=== PATIENT | male | born 1930 | race Hispanic/Latino ===

== ENCOUNTER 2016-10-31 21:14 | Inpatient (IN) | payer MEDICARE ==
[2016-10-31 21:24] VITALS: BMI 30.4
[2016-10-31] MEDS ORDERED: Sodium Chloride 0.9% 1,000 ML IV ONE (21:59)
[2016-10-31] MEDS ORDERED: Iohexol 240 (50 ml) PO ONE (21:59)
--- NOTE | 2016-10-31 22:03 | C.PDOC ---
History Of Present Illness Patient gave ahistory of feeling lightheaded and dizzy tonite with low blood pressure.History of loose bowel movemwnt since yesterday but with rectal bleedin today.Dnies any vomiting or abdominal pain. Chief Complaint (Nursing): Dizziness/Lightheaded History Per: Patient, Family History/Exam Limitations: no limitations Onset/Duration Of Symptoms: Days Current Symptoms Are (Timing): Still Present Activity At Onset Of Symptoms: Exertional Activity Associated Symptoms Preceding Syncopal Episode: Lightheadedness Seizure Or Post-ictal Symptoms: None Possible Causative Factor(s): Other (loose bowel movement) Fall Associated With With Symptoms: No Severity: Moderate Pain Scale Rating Of: 0 Recent travel outside of the [place]: No Additional History Per: Patient Past Medical History Vital Signs: Last Vital Signs Temp 97.7 F 10/31/16 21:32 Pulse 77 10/31/16 23:14 Resp 16 10/31/16 23:14 BP 130/56 L 10/31/16 23:14 Pulse Ox 100 11/01/16 00:17 - Medical History PMH: CAD, HTN, TIA, Chronic Pain (back pain due to osteoarhtritis and herniated disc) Denies: Chronic Kidney Disease Surgical History: CABG Family History: States: Unknown Family Hx - Social History Hx Tobacco Use: No Hx Alcohol Use: No Hx Substance Use: No - Immunization History Hx Tetanus Toxoid Vaccination: No Hx Influenza Vaccination: No Hx Pneumococcal Vaccination: No Review Of Systems Constitutional: Negative for: Fever, Chills Cardiovascular: Positive for: Edema, Light Headedness. Negative for: Chest Pain , Palpitations, Orthopnea Respiratory: Negative for: Cough, Shortness of Breath, Hemoptysis Gastrointestinal: Positive for: Diarrhea, Hematochezia. Negative for: Nausea, Vomiting, Abdominal Pain Genitourinary: Negative for: Dysuria Musculoskeletal: Negative for: Neck Pain, Shoulder Pain, Arm Pain Skin: Negative for: Rash, Lesions Neurological: Positive for: Weakness, Dizziness Psych: Negative for: Anxiety, Depression, Psychosis, Suicidal ideation, Withdrawal Physical Exam - Physical Exam Appears: Well, Non-toxic, No Acute Distress Skin: Normal Color Head: Atraumatic Nose: Normal Throat: Normal Neck: Normal Chest: Symmetrical, No Deformity, No Tenderness Cardiovascular: Rhythm Regular Respiratory: Normal Breath Sounds Gastrointestinal/Abdominal: Bowel Sounds (hyperactive), Tenderness (minimal tenderness), No Organomegaly, No Mass, No Distention, No Guarding Rectal: Rectal Tone, Blood Streaked Stool, No Hemorrhoids, No Mass, No Tenderness ED Course And Treatment - Laboratory Results Result Diagrams: 10/31/16 22:17 10/31/16 22:17 ECG: Interpreted By Me, Viewed By Me ECG Rhythm: Junctional Rhythm (accelerated junctional rhythm) ECG Interpretation: Abnormal Interpretation Of ECG: accelerated junctional rhythm, no acute ST-T changes Rate From EC O2 Sat by Pulse Oximetry: 100 Pulse Ox Interpretation: Normal - Radiology CXR: Interpreted by Me, Viewed By Me CXR Interpretation: Yes: No Acute Disease. No: Infiltrates, Cardiomegaly Disposition Discussed With Dr.: Joaquín Stanley Doctor Will See Patient In The: Hospital Counseled Patient/Family Regarding: Diagnosis - Disposition Referrals: hTomas Phan MD [Staff Provider] - Disposition: HOSPITALIZED Disposition Time: 00:16 Condition: STABLE - POA Present On Arrival: None - Clinical Impression Clinical Impression: Dizziness, Hypotension, Rectal bleeding, Junctional cardiac arrhythmia
[2016-10-31 22:26] LABS: BASO # 0.1 K/uL (0.0-0.2); BASO % 0.8 % (0.0-2.0); EOS # 0.3 K/uL (0.0-0.7); EOS % 2.2 % (0.0-4.0); HEMATOCRIT 38.6 % (35.0-51.0); LYMPH # 2.5 K/uL (1.0-4.3); LYMPH % 21.1 % (20.0-40.0); MEAN CORPUSCULAR HEMOGLOBIN 29.6 pg (27.0-31.0); MEAN CORPUSCULAR HGB CONC 33.2 g/dL (33.0-37.0); MEAN PLATELET VOLUME 9.6 fL (7.2-11.7); MONO % 8.6 % (0.0-10.0); RED CELL DISTRIBUTION WIDTH 13.3 % (11.5-14.5); WHITE BLOOD COUNT 12.1 K/uL (4.8-10.8)
[2016-10-31 22:39] LABS: ALB/GLOB RATIO 1.2 (1.0-2.1); BILIRUBIN,TOTAL 0.9 mg/dL (0.2-1.3); TOTAL PROTEIN 6.1 g/dL (6.3-8.3)
[2016-10-31] MEDS ORDERED: Iohexol 240 (50 ml) ONE (22:40)
[2016-10-31 22:43] LABS: INR 1.2
[2016-10-31 23:14] LABS: CALCIUM 8.4 mg/dl (8.6-10.4)
--- NOTE | 2016-11-01 01:29 | CT ---
EXAM: CT Abdomen and Pelvis With Intravenous Contrast. CLINICAL HISTORY: 86 years old, male; Pain; Abdominal pain; Additional info: Abd pain , low BP, rectal bleed TECHNIQUE: Axial computed tomography images of the abdomen and pelvis with intravenous contrast. This CT exam was performed using one or more of the following dose reduction techniques: automated exposure control, adjustment of the mA and/or kV according to patient size, and/or use of iterative reconstruction technique. Coronal and sagittal reformatted images were created and reviewed. CONTRAST: 240 mL of oral administered intravenously. COMPARISON: No relevant prior studies available. FINDINGS: Limitations: Motion artifact - mild. Lower thorax: Coronary artery calcifications. Moderate-sized hiatal hernia. ABDOMEN: Liver: Unremarkable. No mass. Gallbladder and bile ducts: Cholecystectomy. Mild prominence of common bile duct. Pancreas: No ductal dilation. No mass. Spleen: No splenomegaly. Adrenals: No mass. Kidneys and ureters: Minimal stranding about kidneys, nonspecific. Few small renal calculi. Too small to characterize lesion within RIGHT kidney. No hydronephrosis. Stomach and bowel: Few scattered diverticula within colon. No definite associated inflammatory stranding. No definite mural thickening. No obstruction. Appendix: Normal caliber. No inflammation. PELVIS: Bladder: Unremarkable. Reproductive: Enlarged prostate gland. Small hydroceles. ABDOMEN and PELVIS: Intraperitoneal space: No significant fluid collection. No free air. Bones/joints: Median sternotomy. Degenerative changes of hips and spine. No acute fracture. Soft tissues: Unremarkable. Vasculature: Moderate to extensive atherosclerotic disease of visualized arteries. No aortic aneurysm. Lymph nodes: No pathologically enlarged lymph nodes. IMPRESSION: 1. Diverticulosis without definite CT evidence of diverticulitis. 2. Incidental/non-acute findings are described above.
--- NOTE | 2016-11-01 02:25 | CP.PCM.HP ---
<Sissy Barone - Last Filed: 11/01/16 02:11> History of Present Illness - History of Present Illness History of Present Illness: CC: "dizziness, diarrhea, low blood pressure" HPI: Pt is an 86M with medical history of CAD s/p CABG in 1992, hypertension, COPD, venous insufficiency and diverticulosis who presents the emergency department complaining of dizziness and low blood pressure x 2 days. Patient states he became dizzy and lost his balance after walking to the kitchen, which prompted him to take his blood pressure which indicated hypotension. He also experienced a recent fall in August and recalls similar symptoms. Patient notes 4 episodes of diarrhea on 10/30/16 and 2 episodes on 10/30/16. He states he is typically constipated and admits to straining frequently but will experience diarrhea every month. Patient also admits to bright red blood per rectum noted in the toilet, on the toilet paper and toilet seat x 2 days. He states this is the first he experienced rectal bleeding. Patient remarks he was diagnosed with gastritis/diverticulosis 7-8 years ago. 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 He denies chest pain, shortness of breath, abdominal pain, nausea, vomiting but admits to lower extremity edema. PMD: none PMH: CAD s/p CABG in 1992, hypertension, COPD, venous insufficiency, diverticulosis, fractured vertebrae, multiple facial fractures, Yancey's Palsy Allergies: ciprofloxacin, streptomycin Surgeries: cholecystectomy, metal plate jaw reconstruction Family History: not pertinent Social: smokes 1/2 ppd for 62 years. Denies alcohol and illicit drug use. Present on Admission - Present on Admission Any Indicators Present on Admission: No History of DVT/PE: No Urinary Catheter: No Decubitus Ulcer Present: No Review of Systems - Constitutional Constitutional: absent: Chills, Fever, Headache, Weakness - EENT Eyes: absent: Change in Vision Ears: Dizziness. absent: Tinnitus Nose/Mouth/Throat: absent: Nasal Discharge - Cardiovascular Cardiovascular: absent: Chest Pain, Dyspnea - Respiratory Respiratory: absent: Dyspnea, Dyspnea on Exertion - Gastrointestinal Gastrointestinal: Constipation, Diarrhea, Heartburn, Hematochezia. absent: Abdominal Pain, Melena, Nausea, Vomiting - Genitourinary Genitourinary: Urinary Frequency, Urinary Urgency - Musculoskeletal Musculoskeletal: Back Pain - Integumentary Integumentary: absent: Changing Lesions, New Lesions - Neurological Neurological: Dizziness, Other Additional comments: lightheadedness Past Patient History - Past Medical History & Family History Past Medical History?: Yes - Past Social History Smoking Status: Current Some Days Smoker - CARDIAC Hx Hypertension: Yes - NEUROLOGICAL Hx Transient Ischemic Attacks (TIA): Yes - HEENT Other/Comment: left eye red and watery - RENAL Hx Chronic Kidney Disease: No - ENDOCRINE/METABOLIC Hx Endocrine Disorders: No - HEMATOLOGICAL/ONCOLOGICAL Hx Blood Disorders: No - INTEGUMENTARY Hx Dermatological Problems: No - MUSCULOSKELETAL/RHEUMATOLOGICAL Hx Falls: Yes Hx Herniated Disk: Yes - GASTROINTESTINAL Hx Gastrointestinal Disorders: No - GENITOURINARY/GYNECOLOGICAL Hx Genitourinary Disorders: No - PSYCHIATRIC Hx Substance Use: No - SURGICAL HISTORY Hx Coronary Artery Bypass Graft: Yes - ANESTHESIA Hx Anesthesia: Yes Hx Anesthesia Reactions: No Hx Malignant Hyperthermia: No Meds Allergies/Adverse Reactions: Allergies Allergy/AdvReac Type Severity Reaction Status Date / Time ciprofloxacin [From Cipro] Allergy Mild Verified 10/31/16 21:36 ciprofloxacin HCl Allergy Mild Verified 10/31/16 21:36 [From Cipro] streptomycin Allergy Mild Verified 10/31/16 21:36 Physical Exam - Constitutional Appears: Non-toxic, No Acute Distress - Head Exam Head Exam: ATRAUMATIC, NORMAL INSPECTION, NORMOCEPHALIC - Eye Exam Eye Exam: EOMI, Normal appearance, PERRL - ENT Exam ENT Exam: Mucous Membranes Moist - Neck Exam Neck exam: Positive for: Normal Inspection, Tenderness - Respiratory Exam Respiratory Exam: Clear to Auscultation Bilateral, NORMAL BREATHING PATTERN. absent: Rales, Rhonchi, Wheezes - Cardiovascular Exam Cardiovascular Exam: +S1, +S2. absent: Tachycardia - GI/Abdominal Exam GI & Abdominal Exam: Distended, Hyperactive Bowel Sounds, Soft - Rectal Exam Rectal Exam: Bloody Stool. absent: Hemorrhoids - Extremities Exam Extremities exam: Positive for: pedal edema, tenderness, pedal pulses present - Back Exam Back exam: NORMAL INSPECTION, tenderness - Neurological Exam Neurological exam: Alert, Oriented x3 - Psychiatric Exam Psychiatric exam: Normal Affect, Normal Mood - Skin Skin Exam: Intact, Normal Color Results - Vital Signs Recent Vital Signs: Last Vital Signs Temp 97.7 F 10/31/16 21:32 Pulse 80 11/01/16 00:40 Resp 15 11/01/16 00:40 BP 125/62 11/01/16 00:40 Pulse Ox 98 11/01/16 00:40 - Labs Result Diagrams: 10/31/16 22:17 10/31/16 22:17 Assessment & Plan - Assessment and Plan (Free Text) Assessment: 1. Symptomatic Hypotension likely secondary to diarrhea EKG: accelerated junctional rhythm; no acute ST-T changes f/u Echo Echo (10/07/14): left ventricle mildly dilated, LV systolic function normal, normal LV segmental wall motion, increased left atrial pressure, left atrium mild-moderately dilated, RV systolic function normal, calcified aortic valve Continue Normal Saline IV @100cc Orthostatic vital signs Hold home BP medications Cardiology, Dr. Phan, consulted 2. Diverticulosis CT Abd/Pelvis with po contrast: diverticulosis without definite CT evidence of diverticulitis FOBT positive Monitor hemoglobin (12.8) GI consulted, Dr. Crouch, help appreciated VTE prophylaxis CI due to bleed 3. Acute Kidney Injury BUN/CR 34/1.8 - baseline 1.0 Continue IV fluids Monitor 4. CAD s/p CABG Hold ASA 81 mg po daily due to rectal bleeding Hold Metoprolol 25 mg po BID, Lisinopril 10 mg po BID due to hypotension 5. History of hypertension Hold home blood pressure medications as above 6. Prophylaxis SCD Protonix 20 mg po daily VTE CI due to rectal bleeding - Date & Time Date: 11/01/16 Time: 02:42 <Joaquín Stanley - Last Filed: 11/01/16 06:30> Results - Vital Signs Recent Vital Signs: Last Vital Signs Temp 97.6 F 11/01/16 01:30 Pulse 78 11/01/16 01:45 Resp 20 11/01/16 01:30 BP 109/68 11/01/16 01:30 Pulse Ox 98 11/01/16 01:30 - Labs Result Diagrams: 10/31/16 22:17 10/31/16 22:17 Labs: Laboratory Results - last 24 hr 11/01/16 00:54 Urine Color Yellow Urine Clarity Clear Urine pH 5.0 Ur Specific [place] 1.012 Urine Protein Negative Urine Glucose (UA) Negative Urine Ketones Negative Urine Blood Negative Urine Nitrate Negative Urine Bilirubin Negative Urine Urobilinogen Normal Ur Leukocyte Esterase 2+ H Urine WBC (Auto) 22 H Urine RBC (Auto) 2 Ur Squamous Epith Cells < 1 Urine Bacteria Rare Assessment & Plan - Date & Time Date: 11/01/16 (I have seen and examined the patient. I agree with the findings and plan of care as documented by Dr. Barone. Patient with symptomatic hypotension. History of CAD. Hold BP meds. ROMIx3 with EKG. Consult to Dr. Phan. Hypotension may be secondary to dehydration. Acute kidney injury. IV hydration. Recheck renal function in AM. Monitor for acute changes.) Time: 06:29 Attending/Attestation - Attestation I have personally seen and examined this patient.: Yes I have fully participated in the care of the patient.: Yes I have reviewed all pertinent clinical information: Yes
[2016-11-01 02:57] LABS: URINE BILIRUBIN NEGATIVE (NEGATIVE); URINE BLOOD NEGATIVE (NEGATIVE); URINE COLOR YELLOW (YELLOW); URINE GLUCOSE (UA) NEGATIVE (Normal); URINE KETONE NEGATIVE (NEGATIVE); URINE PROTEIN NEGATIVE (NEGATIVE)
[2016-11-01 02:58] LABS: RBC URINE 2 /hpf (0-3); URINE BACTERIA RARE (<OCC); URINE LEUKOCYTE ESTERASE 2+ Leu/uL (Negative); URINE UROBILINOGEN Normal mg/dL (0.2-1.0); WBC URINE 22 /hpf (0-5)
[2016-11-01] MEDS: Sodium Chloride 0.9% 1,000 ML IV SCH ×2 (03:46→13:31)
[2016-11-01 07:12] LABS: BASO # 0.1 K/uL (0.0-0.2); BASO % 0.8 % (0.0-2.0); EOS # 0.3 K/uL (0.0-0.7); EOS % 2.5 % (0.0-4.0); HEMATOCRIT 32.3 % (35.0-51.0); LYMPH # 1.8 K/uL (1.0-4.3); LYMPH % 17.4 % (20.0-40.0); MEAN CELL VOLUME 88.2 fL (80.0-94.0); MEAN CORPUSCULAR HGB CONC 35.2 g/dL (33.0-37.0); MEAN PLATELET VOLUME 9.4 fL (7.2-11.7); MONO # 1.1 K/uL (0.0-0.8); MONO % 9.9 % (0.0-10.0); RED CELL DISTRIBUTION WIDTH 13.5 % (11.5-14.5); WHITE BLOOD COUNT 10.6 K/uL (4.8-10.8)
[2016-11-01 07:24] LABS: CHLORIDE 101 mmol/L (98-107)
[2016-11-01 07:25] LABS: SODIUM 136 mmol/L (132-148)
[2016-11-01 07:26] LABS: POTASSIUM 4.2 mmol/L (3.6-5.2)
[2016-11-01 07:28] LABS: ALB/GLOB RATIO 1.2 (1.0-2.1); ALKALINE PHOSPHATASE 50 U/L (38-126); ALT/SGPT 26 U/L (21-72); AST/SGOT 20 U/L (17-59); BILIRUBIN,TOTAL 0.8 mg/dL (0.2-1.3); BLOOD UREA NITROGEN 32 mg/dL (9-20); CARBON DIOXIDE 25 mmol/L (22-30); CHOLESTEROL 115 mg/dL (0-199); GFR AFRICAN-AMERICAN > 60; GLUCOSE,RANDOM 101 mg/dL (75-110); TOTAL PROTEIN 5.1 g/dL (6.3-8.3)
[2016-11-01 07:29] LABS: CALCIUM 7.5 mg/dl (8.6-10.4); MAGNESIUM 2.2 mg/dL (1.6-2.3)
[2016-11-01 07:41] LABS: T4 5.81 ug/dL (5.5-11.0)
[2016-11-01 07:54] LABS: THYROID STIMULATING HORMONE 1.92 mIU/L (0.46-4.68)
--- NOTE | 2016-11-01 08:14 | RAD ---
PROCEDURE: CHEST RADIOGRAPH, 1 VIEW HISTORY: GI Bleeding COMPARISON: 09/27/2014 FINDINGS: LUNGS: Biapical pleural thickening with upper lobe granulomatous changes. Diffuse chronic increased interstitial lung markings. Mild patchy left basilar airspace opacity. PLEURA: No pneumothorax or pleural fluid seen. CARDIOVASCULAR: Calcification at the aortic knob. OSSEOUS STRUCTURES: No significant abnormalities. VISUALIZED UPPER ABDOMEN: Normal. OTHER FINDINGS: None. IMPRESSION: Biapical pleural thickening with upper lobe granulomatous changes. Diffuse chronic increased interstitial lung markings. Mild patchy left basilar airspace opacity.
[2016-11-01] MEDS ORDERED: Ergocalciferol 50,000 Intl Units Cap PO SCH (10:00)
[2016-11-01] MEDS ORDERED: Pantoprazole 20 mg EC Tab PO SCH (10:00)
[2016-11-01 12:35] LABS: RBC URINE 1 /hpf (0-3); URINE BILIRUBIN NEGATIVE (NEGATIVE); URINE BLOOD NEGATIVE (NEGATIVE); URINE COLOR Yellow (YELLOW); URINE GLUCOSE (UA) NORMAL (Normal); URINE KETONE NEGATIVE (NEGATIVE); URINE LEUKOCYTE ESTERASE 2+ Leu/uL (Negative); URINE PROTEIN NEGATIVE (NEGATIVE); URINE UROBILINOGEN NORMAL mg/dL (0.2-1.0); WBC URINE 16 /hpf (0-5)
--- NOTE | 2016-11-01 12:43 | CP.PCM.PN ---
<YuekathyNikolas - Last Filed: 11/01/16 12:44> Subjective - Date & Time of Evaluation Date of Evaluation: 11/01/16 Time of Evaluation: 12:41 - Subjective Subjective: PGY-1 Medicine Progress Note for Dr. Phillips Patient seen and examined at bedside. No acute event overnight. Patient still complaining of dizziness/lightheadedness when getting out of bed and sitting on toliet. Orthostatic vitals were positive this morning. Patient stated that he noticed some blood in his stool again this AM. Dr. Crouch made patient NPO for EGD tomorrow. Denied fever/chills, hematemesis, sob, cp, palpitations, abd pain , n/v/d, incontinence. Objective - Vital Signs/Intake and Output Vital Signs (last 24 hours): Temp Pulse Resp BP Pulse Ox 97.7 F 66 18 108/69 97 11/01/16 07:35 11/01/16 11:23 11/01/16 07:35 11/01/16 07:35 11/01/16 07:35 Intake and Output: 11/01/16 11/01/16 06:59 18:59 Intake Total 600 Balance 600 - Medications Medications: Current Medications Ascorbic Acid (Vitamin C 500 Mg Tab) 500 mg PO DAILY [facility] Last Admin: 11/01/16 09:10 Dose: 500 mg Ergocalciferol (Drisdol 50,000 Intl Units Cap) 1 cap PO QWK [facility] Last Admin: 11/01/16 09:10 Dose: 1 cap Sodium Chloride (Sodium Chloride 0.9%) 1,000 mls @ 100 mls/hr IV .Q10H [facility]NA Last Admin: 11/01/16 03:46 Dose: 100 mls/hr Ceftriaxone Sodium 1 gm/ (Sodium Chloride) 100 mls @ 100 mls/hr IVPB Q12H ANA Last Admin: 11/01/16 11:50 Dose: 100 mls/hr Pantoprazole Sodium (Protonix Ec Tab) 20 mg PO DAILY [facility] Last Admin: 11/01/16 09:10 Dose: 20 mg - Labs Labs: 11/01/16 06:59 11/01/16 06:59 PT 13.1 SECONDS (9.7-12.2) H 10/31/16 22:17 INR 1.2 10/31/16 22:17 APTT 30 SECONDS (21-34) 10/31/16 22:17 - Constitutional Appears: No Acute Distress - Head Exam Head Exam: ATRAUMATIC, NORMOCEPHALIC - Eye Exam Eye Exam: EOMI, Normal appearance Pupil Exam: PERRL - ENT Exam ENT Exam: Mucous Membranes Dry - Respiratory Exam Respiratory Exam: Clear to Ausculation Bilateral, NORMAL BREATHING PATTERN - Cardiovascular Exam Cardiovascular Exam: REGULAR RHYTHM, +S1, +S2 - GI/Abdominal Exam GI & Abdominal Exam: Soft, Normal Bowel Sounds. absent: Distended, Firm, Guarding, Tenderness - Extremities Exam Extremities Exam: Normal Capillary Refill - Back Exam Back Exam: absent: CVA tenderness (L), CVA tenderness (R) - Neurological Exam Neurological Exam: Alert, Awake, CN II-XII Intact, Oriented x3 - Psychiatric Exam Psychiatric exam: Normal Affect, Normal Mood - Skin Skin Exam: Dry, Intact, Normal Color, Warm Assessment and Plan - Assessment and Plan (Free Text) Plan: 1. Symptomatic Hypotension likely secondary to diarrhea EKG: accelerated junctional rhythm; no acute ST-T changes f/u Echo CXR tomorrow morning Echo (10/07/14): left ventricle mildly dilated, LV systolic function normal, normal LV segmental wall motion, increased left atrial pressure, left atrium mild-moderately dilated, RV systolic function normal, calcified aortic valve Continue Normal Saline IV @100cc Orthostatic vital signs + Hold home BP medications Cardiology, Dr. Phan, consulted 2. Diverticulosis CT Abd/Pelvis with po contrast: diverticulosis without definite CT evidence of diverticulitis FOBT positive Monitor hemoglobin GI consulted, Dr. Crouch, help appreciated VTE prophylaxis CI due to bleed 3. Acute Kidney Injury BUN/CR 32/1.3 - baseline 1.0 Continue IV fluids Monitor 4. CAD s/p CABG Hold ASA 81 mg po daily due to rectal bleeding Hold Metoprolol 25 mg po BID, Lisinopril 10 mg po BID due to hypotension 5. History of hypertension Hold home blood pressure medications as above 6. UTI UA: 2+ Leuk esterase, WBC 22 Rocephin 1 gm IVPB Q12H 7. Prophylaxis SCD Protonix 20 mg po daily VTE CI due to rectal bleeding <Michael Phillips H - Last Filed: 11/01/16 14:58> Objective - Vital Signs/Intake and Output Vital Signs (last 24 hours): Temp Pulse Resp BP Pulse Ox 97.7 F 66 18 108/69 97 11/01/16 07:35 11/01/16 11:23 11/01/16 07:35 11/01/16 07:35 11/01/16 07:35 Intake and Output: 11/01/16 11/01/16 06:59 18:59 Intake Total 600 Balance 600 - Medications Medications: Current Medications Ascorbic Acid (Vitamin C 500 Mg Tab) 500 mg PO DAILY [facility] Last Admin: 11/01/16 09:10 Dose: 500 mg Ergocalciferol (Drisdol 50,000 Intl Units Cap) 1 cap PO QWK [facility] Last Admin: 11/01/16 09:10 Dose: 1 cap Sodium Chloride (Sodium Chloride 0.9%) 1,000 mls @ 100 mls/hr IV .Q10H [facility] Last Admin: 11/01/16 13:31 Dose: 100 mls/hr Ceftriaxone Sodium 1 gm/ (Sodium Chloride) 100 mls @ 100 mls/hr IVPB Q12H [facility] Last Admin: 11/01/16 11:50 Dose: 100 mls/hr Pantoprazole Sodium (Protonix Ec Tab) 20 mg PO DAILY [facility] Last Admin: 11/01/16 09:10 Dose: 20 mg - Labs Labs: 11/01/16 06:59 11/01/16 06:59 PT 13.1 SECONDS (9.7-12.2) H 10/31/16 22:17 INR 1.2 10/31/16 22:17 APTT 30 SECONDS (21-34) 10/31/16 22:17 Attending/Attestation - Attestation I have personally seen and examined this patient.: Yes I have fully participated in the care of the patient.: Yes I have reviewed all pertinent clinical information, including history, physical exam and plan: Yes Notes (Text): Medical Attending: Patient was seen and examined by me. Agree with the above note by the resident. The patient was with family member when we saw and examined him. We discussed his blood pressure. He was orthostatic this morning. Will get cardiology evaluation, his cardiologoist comes to [facility]. He has recently been having diarrhea - the overnight team is checking for CDiff, OP, stool studies, stool WBC. He is also on IVF as well. Patient reported blood in stools as well as a fccoult occult was positive. GI has been notified and from what I understand there is plan for an EGD sometime tomorrow. We are pending further urine studies. The UA suggest possible UTI so will add lizett VARNER thank you Michael Phillips 11/01/16 14:57
--- NOTE | 2016-11-01 17:29 | CP.PCM.PCO ---
Physician Communication Note - Physician Communication Note Physician Communication Note: Pt is cleared for EDG or colonoscopy.
[2016-11-01 20:20] LABS: HEMATOCRIT 29.2 % (35.0-51.0); MEAN CELL VOLUME 88.9 fL (80.0-94.0); MEAN CORPUSCULAR HEMOGLOBIN 30.3 pg (27.0-31.0); MEAN PLATELET VOLUME 9.2 fL (7.2-11.7); RED CELL DISTRIBUTION WIDTH 13.2 % (11.5-14.5); WHITE BLOOD COUNT 11.9 K/uL (4.8-10.8)
[2016-11-01 20:29] LABS: INR 1.3
[2016-11-01] MEDS ORDERED: Phytonadione 10 mg/ml Inj (Adult) SC ONE (22:00)
[2016-11-02] MEDS: Sodium Chloride 0.9% 1,000 ML IV SCH ×2 (04:04→09:12)
[2016-11-02 07:14] LABS: BASO # 0.1 K/uL (0.0-0.2); BASO % 1.2 % (0.0-2.0); EOS # 0.4 K/uL (0.0-0.7); EOS % 4.1 % (0.0-4.0); HEMATOCRIT 28.1 % (35.0-51.0); LYMPH # 2.2 K/uL (1.0-4.3); LYMPH % 22.3 % (20.0-40.0); MEAN CELL VOLUME 88.7 fL (80.0-94.0); MEAN CORPUSCULAR HEMOGLOBIN 30.9 pg (27.0-31.0); MEAN CORPUSCULAR HGB CONC 34.8 g/dL (33.0-37.0); MONO # 1.1 K/uL (0.0-0.8); NRBC % 0.1 % (0.0-2.0); RED CELL DISTRIBUTION WIDTH 13.7 % (11.5-14.5); WHITE BLOOD COUNT 9.8 K/uL (4.8-10.8)
[2016-11-02 07:25] LABS: CHLORIDE 105 mmol/L (98-107)
[2016-11-02 07:26] LABS: SODIUM 138 mmol/L (132-148)
[2016-11-02 07:28] LABS: ALB/GLOB RATIO 1.1 (1.0-2.1); ALKALINE PHOSPHATASE 49 U/L (38-126); ALT/SGPT 27 U/L (21-72); AST/SGOT 20 U/L (17-59); BILIRUBIN,TOTAL 0.4 mg/dL (0.2-1.3); BLOOD UREA NITROGEN 24 mg/dL (9-20); CARBON DIOXIDE 26 mmol/L (22-30); GFR AFRICAN-AMERICAN > 60; GLUCOSE,RANDOM 93 mg/dL (75-110); TOTAL PROTEIN 5.1 g/dL (6.3-8.3)
[2016-11-02 07:29] LABS: CALCIUM 7.4 mg/dl (8.6-10.4)
--- NOTE | 2016-11-02 08:50 | RAD ---
HISTORY: assess for fluid overload COMPARISON: No prior. FINDINGS: LUNGS: Mild venous congestion. Mild patchy bibasilar increased markings. PLEURA: No significant pleural effusion identified, no pneumothorax apparent. CARDIOVASCULAR: Normal. OSSEOUS STRUCTURES: No significant abnormalities. VISUALIZED UPPER ABDOMEN: Normal. OTHER FINDINGS: None. IMPRESSION: Mild venous congestion. Mild patchy bibasilar increased markings.
--- NOTE | 2016-11-02 10:44 | CP.PCM.CON ---
History of Present Illness - History of Present Illness History of Present Illness: The pt is an 86 year old man, lives alone, s/p cabg, some day smoker smoker, who has been very dizzy and tired. Blacked out for a second a month ago, hurting his neck (no fall). Pt came to the ER, has been reporting hematochezia, stool occult blood is positive. TNI is normal. ECG reads junctional rhythm but on close examination, pt is in nsr, first degree av block. Previous assessment of LV EF was normal. pt has not had angina. 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 Pt gets up is light headed, but not orthostatic today. CV meds have been held and pt is to have colonoscopy or egd today. Denies angina or dyspnea/ Review of Systems - Review of Systems All systems: reviewed and no additional remarkable complaints except (as above, also urinary hesitancy, otherwise all other systems negative) Past Patient History - Past Medical History & Family History Past Medical History?: Yes - Past Social History Smoking Status: Current Some Days Smoker - CARDIAC Hx Hypertension: Yes - PULMONARY Hx Respiratory Disorders: No - NEUROLOGICAL Hx Transient Ischemic Attacks (TIA): Yes - HEENT Other/Comment: left eye red and watery - RENAL Hx Chronic Kidney Disease: No - ENDOCRINE/METABOLIC Hx Endocrine Disorders: No - HEMATOLOGICAL/ONCOLOGICAL Hx Blood Disorders: No - INTEGUMENTARY Hx Dermatological Problems: No - MUSCULOSKELETAL/RHEUMATOLOGICAL Hx Falls: Yes Hx Herniated Disk: Yes - GASTROINTESTINAL Hx Gastrointestinal Disorders: No - GENITOURINARY/GYNECOLOGICAL Hx Genitourinary Disorders: No - PSYCHIATRIC Hx Substance Use: No - SURGICAL HISTORY Hx Coronary Artery Bypass Graft: Yes - ANESTHESIA Hx Anesthesia: Yes Hx Anesthesia Reactions: No Hx Malignant Hyperthermia: No Meds Allergies/Adverse Reactions: Allergies Allergy/AdvReac Type Severity Reaction Status Date / Time ciprofloxacin [From Cipro] Allergy Mild Verified 10/31/16 21:36 ciprofloxacin HCl Allergy Mild Verified 10/31/16 21:36 [From Cipro] streptomycin Allergy Mild Verified 10/31/16 21:36 - Medications Medications: Current Medications Ascorbic Acid (Vitamin C 500 Mg Tab) 500 mg PO DAILY [facility] Last Admin: 11/02/16 09:12 Dose: Not Given Ergocalciferol (Drisdol 50,000 Intl Units Cap) 1 cap PO QWK [facility] Last Admin: 11/01/16 09:10 Dose: 1 cap Sodium Chloride (Sodium Chloride 0.9%) 1,000 mls @ 100 mls/hr IV .Q10H [facility] Last Admin: 11/02/16 09:12 Dose: Not Given Ceftriaxone Sodium 1 gm/ (Sodium Chloride) 100 mls @ 100 mls/hr IVPB Q12H [facility] Last Admin: 11/01/16 23:57 Dose: 100 mls/hr Pantoprazole Sodium (Protonix Inj) 40 mg IVP Q12H [facility] Last Admin: 11/02/16 07:49 Dose: 40 mg Physical Exam - Head Exam Head Exam: ATRAUMATIC - Eye Exam Eye Exam: EOMI - ENT Exam ENT Exam: Mucous Membranes Moist - Neck Exam Neck exam: Positive for: Lymphadenopathy - Respiratory Exam Respiratory Exam: Clear to Auscultation Bilateral - Cardiovascular Exam Cardiovascular Exam: REGULAR RHYTHM - GI/Abdominal Exam GI & Abdominal Exam: Normal Bowel Sounds - Exam External exam: Swelling (left leg mild edema and mild erythema, cool to touch) - Extremities Exam Extremities exam: Positive for: pedal edema - Back Exam Back exam: NORMAL INSPECTION - Neurological Exam Neurological exam: Alert, CN II-XII Intact, Oriented x3, Reflexes Normal - Psychiatric Exam Psychiatric exam: Anxious - Skin Skin Exam: Normal Color Results - Vital Signs Recent Vital Signs: Last Vital Signs Temp 97.7 F 11/02/16 07:05 Pulse 74 11/02/16 08:45 Resp 20 11/02/16 07:05 BP 101/56 L 11/02/16 07:05 Pulse Ox 97 11/02/16 07:05 - Labs Result Diagrams: 11/02/16 07:04 11/02/16 07:04 Labs: Laboratory Results - last 24 hr 11/01/16 11/01/16 11/01/16 12:22 15:05 19:58 WBC 11.9 H RBC 3.29 L Hgb 9.9 L Hct 29.2 L MCV 88.9 MCH 30.3 MCHC 34.0 RDW 13.2 Plt Count 160 MPV 9.2 Neut % (Auto) Lymph % (Auto) [place] % (Auto) Eos % (Auto) Baso % (Auto) Neut # Lymph # [place] # Eos # Baso # PT 14.1 H INR 1.3 APTT 30 Sodium Potassium Chloride Carbon Dioxide Anion Gap BUN Creatinine Est GFR ( Amer) Est GFR (Non-Af Amer) Random Glucose Calcium Phosphorus Magnesium Total Bilirubin AST ALT Alkaline Phosphatase Total Creatine Kinase 73 CK-MB (Mass) 0.73 Troponin I, Quant < 0.0120 Total Protein Albumin Globulin Albumin/Globulin Ratio Carcinoembryonic Ag Urine Color Yellow Urine Clarity Clear Urine pH 5.0 Ur Specific [place] 1.012 Urine Protein Negative Urine Glucose (UA) Normal Urine Ketones Negative Urine Blood Negative Urine Nitrate Negative Urine Bilirubin Negative Urine Urobilinogen Normal Ur Leukocyte Esterase 2+ H Urine WBC (Auto) 16 H Urine RBC (Auto) 1 Stool Leukocytes, Qual 11/01/16 11/02/16 Unknown 07:04 WBC 9.8 RBC 3.16 L Hgb 9.8 L Hct 28.1 L MCV 88.7 MCH 30.9 MCHC 34.8 RDW 13.7 Plt Count 147 MPV 9.0 Neut % (Auto) 61.4 Lymph % (Auto) 22.3 [place] % (Auto) 11.0 H Eos % (Auto) 4.1 H Baso % (Auto) 1.2 Neut # 6.0 Lymph # 2.2 [place] # 1.1 H Eos # 0.4 Baso # 0.1 PT INR APTT Sodium 138 Potassium 4.0 Chloride 105 Carbon Dioxide 26 Anion Gap 12 BUN 24 H Creatinine 1.1 Est GFR ( Amer) > 60 Est GFR (Non-Af Amer) > 60 Random Glucose 93 Calcium 7.4 L Phosphorus 3.0 Magnesium 2.0 Total Bilirubin 0.4 AST 20 ALT 27 Alkaline Phosphatase 49 Total Creatine Kinase CK-MB (Mass) Troponin I, Quant Total Protein 5.1 L Albumin 2.7 L Globulin 2.4 Albumin/Globulin Ratio 1.1 Carcinoembryonic Ag 1.0 Urine Color Urine Clarity Urine pH Ur Specific [place] Urine Protein Urine Glucose (UA) Urine Ketones Urine Blood Urine Nitrate Urine Bilirubin Urine Urobilinogen Ur Leukocyte Esterase Urine WBC (Auto) Urine RBC (Auto) Stool Leukocytes, Qual Positive H - EKG Data EKG Interpreted by: Myself EKG shows normal: Sinus rhythm (first degree av block) Assessment & Plan - Assessment and Plan (Free Text) Assessment: 1. Pt has no angina or evidence of acute ischemic syndrome 2. Pt does not have junctional rhythm. he has first degree av block. this is in no way related to his fatiige and dizziness 3. Echo has been done, not loading on this monitor: I will go to dept to read. 4. TSH ordered. fatigue 5. For GI eval. asa held. last colonoscopy was 7 years ago "diverticulosis". 6. No longer orthostatic after hydration. 7. Pt has low albumin and calcium.
[2016-11-02] MEDS ORDERED: Propofol 10 mg/ml Inj (20 ML) ONE (13:13)
[2016-11-02] MEDS ORDERED: Lactated Ringer's 1,000 ML IV SCH ×2 (13:15→16:29)
[2016-11-02] MEDS ORDERED: Lactated Ringer's 500 ML IV ONE (13:20)
[2016-11-02] MEDS ORDERED: Peg-Electrolyte Oral Soln 4L (Golytely) PO ONE (14:30)
--- NOTE | 2016-11-02 15:10 | CP.PCM.CON ---
<Emmanuel Guerra - Last Filed: 11/02/16 17:11> History of Present Illness - History of Present Illness History of Present Illness: ICU CONSULT NOTE HPI: 86 yo M with PMHx significant for CAD, s/p CABG in 1992, HTN, COPD, venous insufficiency, diverticulosis and constipation. He presented to the ED earlier with complaints of dizziness and hypotension for 2 days and recent hematochezia. Patient underwent an EGD with biopsy today with post-op diagnosis of hiatal hernia, gastritis and gastroparesis. Patient was noted to be in stable condition by the nursing team afterwards. Patient indicated wanting to move his bowels, but was initially unable to. When he was finally able to go, he passed a small stool with noted bright red blood per nurse. Afterwards, patient complained of significant abdominal pain and passed more bright red blood into the second bed [place]. Rapid response was called at 2:45 pm for which patient was then brought to ICU for close monitoring. Patient admitted to [facility] and Q abdominal pain, hematochezia and dizzyness particularly when sitting upright. He denied subjective fever/chills, hematemesis, sob, cp, palpitations, abd pain, n/v/d, incontinence. PMH: CAD s/p CABG in 1992, Hypertension, COPD, venous insufficiency, diverticulosis, fractured vertebrae, multiple facial fractures, Yancey's Palsy, TIA PSHx: cholecystectomy, metal plate jaw reconstruction Family history: not pertinent Social: ppd for 62 years. Denies alcohol and illicit drug use. Allergies: Ciprofloxacin, streptomycin PMD: none Review of Systems - Review of Systems Review of Systems: as noted in subjective portion Past Patient History - Past Medical History & Family History Past Medical History?: Yes - Past Social History Smoking Status: Current Some Days Smoker - CARDIAC Hx Hypertension: Yes - PULMONARY Hx Respiratory Disorders: No - NEUROLOGICAL Hx Transient Ischemic Attacks (TIA): Yes - HEENT Other/Comment: left eye red and watery - RENAL Hx Chronic Kidney Disease: No - ENDOCRINE/METABOLIC Hx Endocrine Disorders: No - HEMATOLOGICAL/ONCOLOGICAL Hx Blood Disorders: No - INTEGUMENTARY Hx Dermatological Problems: No - MUSCULOSKELETAL/RHEUMATOLOGICAL Hx Falls: Yes Hx Herniated Disk: Yes - GASTROINTESTINAL Hx Gastrointestinal Disorders: No - GENITOURINARY/GYNECOLOGICAL Hx Genitourinary Disorders: No - PSYCHIATRIC Hx Substance Use: No - SURGICAL HISTORY Hx Coronary Artery Bypass Graft: Yes - ANESTHESIA Hx Anesthesia: Yes Hx Anesthesia Reactions: No Hx Malignant Hyperthermia: No Meds Allergies/Adverse Reactions: Allergies Allergy/AdvReac Type Severity Reaction Status Date / Time ciprofloxacin [From Cipro] Allergy Mild Verified 10/31/16 21:36 ciprofloxacin HCl Allergy Mild Verified 10/31/16 21:36 [From Cipro] streptomycin Allergy Mild Verified 10/31/16 21:36 - Medications Medications: Current Medications Ascorbic Acid (Vitamin C 500 Mg Tab) 500 mg PO DAILY [facility] Last Admin: 11/02/16 09:12 Dose: Not Given Bisacodyl (Dulcolax) 10 mg PO ONCE ONE Stop: 11/02/16 17:01 Ergocalciferol (Drisdol 50,000 Intl Units Cap) 1 cap PO QWK [facility] Last Admin: 11/01/16 09:10 Dose: 1 cap Sodium Chloride (Sodium Chloride 0.9%) 1,000 mls @ 100 mls/hr IV .Q10H [facility] Last Admin: 11/02/16 09:12 Dose: Not Given Ceftriaxone Sodium 1 gm/ (Sodium Chloride) 100 mls @ 100 mls/hr IVPB Q12H [facility] Last Admin: 11/02/16 11:06 Dose: 100 mls/hr Lactated Ringer's (Lactated Ringer's) 1,000 mls @ 80 mls/hr IV .[id number] [facility] Last Admin: 11/02/16 14:28 Dose: 80 mls/hr Metoclopramide HCl (Reglan) 5 mg IVP ACHS [facility] Pantoprazole Sodium (Protonix Inj) 40 mg IVP Q12H [facility] Last Admin: 11/02/16 07:49 Dose: 40 mg Physical Exam - Constitutional Appears: Non-toxic Additional comments: mild distress - Head Exam Head Exam: ATRAUMATIC, NORMAL INSPECTION, NORMOCEPHALIC - Eye Exam Eye Exam: EOMI, Normal appearance, PERRL Pupil Exam: NORMAL ACCOMODATION, PERRL - ENT Exam ENT Exam: Mucous Membranes Moist, Normal Exam - Neck Exam Neck exam: Positive for: Full Rom - Respiratory Exam Respiratory Exam: NORMAL BREATHING PATTERN. absent: Wheezes - Cardiovascular Exam Cardiovascular Exam: REGULAR RHYTHM, +S1, +S2 - GI/Abdominal Exam GI & Abdominal Exam: Distended, Normal Bowel Sounds, Soft - Rectal Exam Additional comments: could not perform due to patient's anxiety at the moment of evaluation - Extremities Exam Extremities exam: Positive for: full ROM, normal capillary refill, pedal pulses present. Negative for: calf tenderness - Back Exam Back exam: FULL ROM - Neurological Exam Neurological exam: Alert, CN II-XII Intact, Oriented x3 - Psychiatric Exam Psychiatric exam: Anxious, Normal Affect, Normal Mood - Skin Skin Exam: Dry, Intact, Pallor Results - Vital Signs Recent Vital Signs: Last Vital Signs Temp 98 F 11/02/16 13:55 Pulse 74 11/02/16 13:55 Resp 17 11/02/16 13:55 BP 142/57 L 11/02/16 13:55 Pulse Ox 100 11/02/16 13:55 - Labs Result Diagrams: 11/02/16 15:08 11/02/16 07:04 Labs: Laboratory Results - last 24 hr 11/01/16 11/01/16 11/02/16 15:05 19:58 07:04 WBC 11.9 H 9.8 RBC 3.29 L 3.16 L Hgb 9.9 L 9.8 L Hct 29.2 L 28.1 L MCV 88.9 88.7 MCH 30.3 30.9 MCHC 34.0 34.8 RDW 13.2 13.7 Plt Count 160 147 MPV 9.2 9.0 Neut % (Auto) 61.4 Lymph % (Auto) 22.3 [place] % (Auto) 11.0 H Eos % (Auto) 4.1 H Baso % (Auto) 1.2 Neut # 6.0 Lymph # 2.2 [place] # 1.1 H Eos # 0.4 Baso # 0.1 PT 14.1 H INR 1.3 APTT 30 Sodium 138 Potassium 4.0 Chloride 105 Carbon Dioxide 26 Anion Gap 12 BUN 24 H Creatinine 1.1 Est GFR ( Amer) > 60 Est GFR (Non-Af Amer) > 60 Random Glucose 93 Calcium 7.4 L Phosphorus 3.0 Magnesium 2.0 Total Bilirubin 0.4 AST 20 ALT 27 Alkaline Phosphatase 49 Total Creatine Kinase 73 CK-MB (Mass) 0.73 Troponin I, Quant < 0.0120 Total Protein 5.1 L Albumin 2.7 L Globulin 2.4 Albumin/Globulin Ratio 1.1 Carcinoembryonic Ag 1.0 Assessment & Plan - Assessment and Plan (Free Text) Assessment: 86 year old male presents with a past medical history of CAD s/p CABG in 1992, HTN, COPD, venous insufficiency and diverticulosis, and hematochezia, who presented to the ED with complaints of dizziness and hypotension for two days. Patient completed an EGD and had worsening symptoms of GI bleed along with a drop of Hemoglobin 9.9 to 9.1. Admitted to ICU for close monitoring. Plan: Neuro: Monitor Cardio: Pt has no angina or evidence of acute ischemic syndrome Pt does not have junctional rhythm. he has first degree av block. this is in no way related to his fatiige and dizziness Echo has been done, not loading on this monitor: I will go to dept to read. For GI eval. asa held. No longer orthostatic after hydration; however on LR and fluidbolus given Hold home BP meds due to hypotension Echo (10/07/14): left ventricle mildly dilated, LV systolic function normal, normal LV segmental wall motion, increased left atrial pressure, left atrium mild-moderately dilated, RV systolic function normal, calcified aortic valve Pulmonary: Maintain O2 Sat >92% Imagin/15 CXR: mild venous congestion. Mild patchy bibasilar increased markings 11/01 CXR: Biapical pleural thickening with upper lobe granulomatous changes. Diffuse chronic increased interstitial lung markings with bild patchy left basilar airspace opacities. Endo: Maintain euglycemia GI: Bleeding scan ordered- F/U. Monitor Bowel movements Monitor GI bleed- to be transfused PRBC and FFP. H and H Q4 until stabilized Metoclopramide 5 mg IVP ACHS ANA Ducolax 10 mg PO once Report: Endoscopy report hiatal hernia, erosions and erythema found in gastric antrum , biopsies taken for H.pylori testing. Imagin/14 CT Abdomen/Pelvis: Diverticulosis without CT evidence of diverticulitis. Last colonoscopy was 7 years ago "diverticulosis"- Was scheduled to have colonscopy tmrw prior to bleeding events. -Will f/u with GI Dr. Crouch : I/Os 1200/1450/-250 Monitor I/Os Insert eli Renal: Monitor I/Os Lactated ringer's 1000 cc @ 80 cc/hr; Fluid bolus 500 cc given for hypotension Heme: H&H: 9.1/27.1 Hemoglobin 11.4>9.9>9.8>9.1 Daily CBCs MSK: PT/OT eval Ergocalciferol 1 cap PO QWK [facility] Ascorbic Acid 500 mg PO daily ID: Positive stool leukocytes Daily CBCs Ceftriaxone 1 gm 100cc/hr Q12H [facility] Prophylaxis: DVT: Contraindicated due to GI bleed GI: Pantoprazole 40 mg IVP Q12H <Nic Jaramillo - Last Filed: 11/02/16 18:42> Meds - Medications Medications: Current Medications Ascorbic Acid (Vitamin C 500 Mg Tab) 500 mg PO DAILY [facility] Last Admin: 11/02/16 09:12 Dose: Not Given Ergocalciferol (Drisdol 50,000 Intl Units Cap) 1 cap PO QWK [facility] Last Admin: 11/01/16 09:10 Dose: 1 cap Ceftriaxone Sodium 1 gm/ (Sodium Chloride) 100 mls @ 100 mls/hr IVPB Q12H [facility] Last Admin: 11/02/16 11:06 Dose: 100 mls/hr Lactated Ringer's (Lactated Ringer's) 1,000 mls @ 125 mls/hr IV .Q8H [facility] Metronidazole (Flagyl) 100 mls @ 100 mls/hr IVPB Q8H [facility] Metoclopramide HCl (Reglan) 5 mg IVP ACHS [facility] Pantoprazole Sodium (Protonix Inj) 40 mg IVP Q12H [facility] Last Admin: 11/02/16 07:49 Dose: 40 mg Results - Vital Signs Recent Vital Signs: Last Vital Signs Temp 97.9 F 11/02/16 14:45 Pulse 84 11/02/16 15:40 Resp 14 11/02/16 15:40 BP 138/57 L 11/02/16 15:40 Pulse Ox 97 11/02/16 15:40 - Labs Result Diagrams: 11/02/16 15:08 11/02/16 07:04 Labs: Laboratory Results - last 24 hr 11/01/16 11/02/16 11/02/16 19:58 07:04 15:08 WBC 11.9 H 9.8 11.3 H RBC 3.29 L 3.16 L 3.02 L Hgb 9.9 L 9.8 L 9.1 L Hct 29.2 L 28.1 L 27.1 L MCV 88.9 88.7 89.6 MCH 30.3 30.9 30.3 MCHC 34.0 34.8 33.8 RDW 13.2 13.7 13.7 Plt Count 160 147 157 MPV 9.2 9.0 8.7 Neut % (Auto) 61.4 Lymph % (Auto) 22.3 [place] % (Auto) 11.0 H Eos % (Auto) 4.1 H Baso % (Auto) 1.2 Neut # 6.0 Lymph # 2.2 [place] # 1.1 H Eos # 0.4 Baso # 0.1 PT 14.1 H INR 1.3 APTT 30 Sodium 138 Potassium 4.0 Chloride 105 Carbon Dioxide 26 Anion Gap 12 BUN 24 H Creatinine 1.1 Est GFR ( Amer) > 60 Est GFR (Non-Af Amer) > 60 Random Glucose 93 Calcium 7.4 L Phosphorus 3.0 Magnesium 2.0 Total Bilirubin 0.4 AST 20 ALT 27 Alkaline Phosphatase 49 Total Protein 5.1 L Albumin 2.7 L Globulin 2.4 Albumin/Globulin Ratio 1.1 Carcinoembryonic Ag 1.0 Blood Type O POSITIVE Antibody Screen Negative Attending/Attestation - Attestation I have personally seen and examined this patient.: Yes I have fully participated in the care of the patient.: Yes I have reviewed all pertinent clinical information: Yes Notes (Text): 11/02/16 18:39 Patient seen and examined. 86-year-old male transferred to ICU after he had large bright red blood per rectum For bleeding scan Continue to monitor H&H Transfuse packed RBCs For colonoscopy tomorrow
[2016-11-02 15:11] LABS: HEMATOCRIT 27.1 % (35.0-51.0); MEAN CELL VOLUME 89.6 fL (80.0-94.0); MEAN CORPUSCULAR HEMOGLOBIN 30.3 pg (27.0-31.0); MEAN CORPUSCULAR HGB CONC 33.8 g/dL (33.0-37.0); MEAN PLATELET VOLUME 8.7 fL (7.2-11.7); RED CELL DISTRIBUTION WIDTH 13.7 % (11.5-14.5); WHITE BLOOD COUNT 11.3 K/uL (4.8-10.8)
--- NOTE | 2016-11-02 15:23 | CP.PCM.CON ---
Past Patient History - Past Medical History & Family History Past Medical History?: Yes - Past Social History Smoking Status: Current Some Days Smoker - CARDIAC Hx Hypertension: Yes - PULMONARY Hx Respiratory Disorders: No - NEUROLOGICAL Hx Transient Ischemic Attacks (TIA): Yes - HEENT Other/Comment: left eye red and watery - RENAL Hx Chronic Kidney Disease: No - ENDOCRINE/METABOLIC Hx Endocrine Disorders: No - HEMATOLOGICAL/ONCOLOGICAL Hx Blood Disorders: No - INTEGUMENTARY Hx Dermatological Problems: No - MUSCULOSKELETAL/RHEUMATOLOGICAL Hx Falls: Yes Hx Herniated Disk: Yes - GASTROINTESTINAL Hx Gastrointestinal Disorders: No - GENITOURINARY/GYNECOLOGICAL Hx Genitourinary Disorders: No - PSYCHIATRIC Hx Substance Use: No - SURGICAL HISTORY Hx Coronary Artery Bypass Graft: Yes - ANESTHESIA Hx Anesthesia: Yes Hx Anesthesia Reactions: No Hx Malignant Hyperthermia: No Meds Allergies/Adverse Reactions: Allergies Allergy/AdvReac Type Severity Reaction Status Date / Time ciprofloxacin [From Cipro] Allergy Mild Verified 10/31/16 21:36 ciprofloxacin HCl Allergy Mild Verified 10/31/16 21:36 [From Cipro] streptomycin Allergy Mild Verified 10/31/16 21:36 - Medications Medications: Current Medications Ascorbic Acid (Vitamin C 500 Mg Tab) 500 mg PO DAILY [facility] Last Admin: 11/02/16 09:12 Dose: Not Given Bisacodyl (Dulcolax) 10 mg PO ONCE ONE Stop: 11/02/16 17:01 Ergocalciferol (Drisdol 50,000 Intl Units Cap) 1 cap PO QWK [facility] Last Admin: 11/01/16 09:10 Dose: 1 cap Sodium Chloride (Sodium Chloride 0.9%) 1,000 mls @ 100 mls/hr IV .Q10H [facility] Last Admin: 11/02/16 09:12 Dose: Not Given Ceftriaxone Sodium 1 gm/ (Sodium Chloride) 100 mls @ 100 mls/hr IVPB Q12H [facility] Last Admin: 11/02/16 11:06 Dose: 100 mls/hr Lactated Ringer's (Lactated Ringer's) 1,000 mls @ 80 mls/hr IV .[id number] [facility] Last Admin: 11/02/16 14:28 Dose: 80 mls/hr Metoclopramide HCl (Reglan) 5 mg IVP ACHS [facility] Pantoprazole Sodium (Protonix Inj) 40 mg IVP Q12H [facility] Last Admin: 11/02/16 07:49 Dose: 40 mg Results - Vital Signs Recent Vital Signs: Last Vital Signs Temp 98 F 11/02/16 13:55 Pulse 74 11/02/16 13:55 Resp 17 11/02/16 13:55 BP 142/57 L 11/02/16 13:55 Pulse Ox 100 11/02/16 13:55 - Labs Result Diagrams: 11/02/16 15:08 11/02/16 07:04 Labs: Laboratory Results - last 24 hr 11/01/16 11/01/16 11/02/16 15:05 19:58 07:04 WBC 11.9 H 9.8 RBC 3.29 L 3.16 L Hgb 9.9 L 9.8 L Hct 29.2 L 28.1 L MCV 88.9 88.7 MCH 30.3 30.9 MCHC 34.0 34.8 RDW 13.2 13.7 Plt Count 160 147 MPV 9.2 9.0 Neut % (Auto) 61.4 Lymph % (Auto) 22.3 [place] % (Auto) 11.0 H Eos % (Auto) 4.1 H Baso % (Auto) 1.2 Neut # 6.0 Lymph # 2.2 [place] # 1.1 H Eos # 0.4 Baso # 0.1 PT 14.1 H INR 1.3 APTT 30 Sodium 138 Potassium 4.0 Chloride 105 Carbon Dioxide 26 Anion Gap 12 BUN 24 H Creatinine 1.1 Est GFR ( Amer) > 60 Est GFR (Non-Af Amer) > 60 Random Glucose 93 Calcium 7.4 L Phosphorus 3.0 Magnesium 2.0 Total Bilirubin 0.4 AST 20 ALT 27 Alkaline Phosphatase 49 CK-MB (Mass) 0.73 Troponin I, Quant < 0.0120 Total Protein 5.1 L Albumin 2.7 L Globulin 2.4 Albumin/Globulin Ratio 1.1 Carcinoembryonic Ag 1.0 11/02/16 15:08 WBC 11.3 H RBC 3.02 L Hgb 9.1 L Hct 27.1 L MCV 89.6 MCH 30.3 MCHC 33.8 RDW 13.7 Plt Count 157 MPV 8.7 Neut % (Auto) Lymph % (Auto) [place] % (Auto) Eos % (Auto) Baso % (Auto) Neut # Lymph # [place] # Eos # Baso # PT INR APTT Sodium Potassium Chloride Carbon Dioxide Anion Gap BUN Creatinine Est GFR ( Amer) Est GFR (Non-Af Amer) Random Glucose Calcium Phosphorus Magnesium Total Bilirubin AST ALT Alkaline Phosphatase CK-MB (Mass) Troponin I, Quant Total Protein Albumin Globulin Albumin/Globulin Ratio Carcinoembryonic Ag
--- NOTE | 2016-11-02 15:39 | CP.PCM.PN ---
Subjective - Date & Time of Evaluation Date of Evaluation: 11/02/16 Time of Evaluation: 08:00 - Subjective Subjective: PGY-1 Medicine Progress Note for Dr. Jean Baptiste: Patient seen and examined at bedside. No acute event overnight. Patient still complaining of dizziness/lightheadedness when getting out of bed and sitting on toilet. Patient stated that he noticed some blood in his yesterday but not today. He was asking for stool softener because he stated he is "constipated". Hgb was stable at 9.8. He stated his L leg was a little more swollen but not painful. Patient had no other acute complaints: Denied fever/chills, hematemesis, sob, cp, palpitations, abd pain, n/v/d, incontinence. Patient for EGD today. Rapid Response was called at 3:00 PM for massive bloody bowel movement in bedpan Patient stated he felt weak and slightly dizzy. BP 126/84 HR 81. Patient's lungs clear to auscultation bilaterally and heart sounds normal. Patient slightly tender in abdomen more on left side but main generalized. Abd soft non tender +Bowel sounds. Patient already on PPx IV BID and had EGD done today. Was scheduled for colonoscopy tomorrow with Dr. Crouch, GI. Stat labs ordered, type + cross, PRBC ordered. Hbg earlier 9.8 Will follow up. Bleeding scan ordered Surgery, Dr. Allan consulted. Patient evaluated by ICU, Dr. Jaramillo and accepted/transferred to ICU bed 8. Objective - Vital Signs/Intake and Output Vital Signs (last 24 hours): Temp Pulse Resp BP Pulse Ox 98 F 74 17 142/57 L 100 11/02/16 13:55 11/02/16 13:55 11/02/16 13:55 11/02/16 13:55 11/02/16 13:55 Intake and Output: 11/02/16 11/02/16 06:59 18:59 Output Total 650 Balance -650 - Medications Medications: Current Medications Ascorbic Acid (Vitamin C 500 Mg Tab) 500 mg PO DAILY [facility] Last Admin: 11/02/16 09:12 Dose: Not Given Bisacodyl (Dulcolax) 10 mg PO ONCE ONE Stop: 11/02/16 17:01 Ergocalciferol (Drisdol 50,000 Intl Units Cap) 1 cap PO QWK [facility] Last Admin: 11/01/16 09:10 Dose: 1 cap Sodium Chloride (Sodium Chloride 0.9%) 1,000 mls @ 100 mls/hr IV .Q10H [facility] Last Admin: 11/02/16 09:12 Dose: Not Given Ceftriaxone Sodium 1 gm/ (Sodium Chloride) 100 mls @ 100 mls/hr IVPB Q12H [facility] Last Admin: 11/02/16 11:06 Dose: 100 mls/hr Lactated Ringer's (Lactated Ringer's) 1,000 mls @ 80 mls/hr IV .[id number] [facility] Last Admin: 11/02/16 14:28 Dose: 80 mls/hr Metoclopramide HCl (Reglan) 5 mg IVP ACHS [facility] Pantoprazole Sodium (Protonix Inj) 40 mg IVP Q12H [facility] Last Admin: 11/02/16 07:49 Dose: 40 mg - Labs Labs: 11/02/16 15:08 11/02/16 07:04 PT 14.1 SECONDS (9.7-12.2) H 11/01/16 19:58 INR 1.3 11/01/16 19:58 APTT 30 SECONDS (21-34) 11/01/16 19:58 - Constitutional Appears: Non-toxic, No Acute Distress - Head Exam Head Exam: ATRAUMATIC, NORMAL INSPECTION - Eye Exam Eye Exam: EOMI, PERRL Pupil Exam: NORMAL ACCOMODATION - ENT Exam ENT Exam: Mucous Membranes Moist - Neck Exam Neck Exam: Full ROM - Respiratory Exam Respiratory Exam: Clear to Ausculation Bilateral, NORMAL BREATHING PATTERN. absent: Accessory Muscle Use, Respiratory Distress - Cardiovascular Exam Cardiovascular Exam: REGULAR RHYTHM, +S1, +S2 - GI/Abdominal Exam GI & Abdominal Exam: Soft, Tenderness (mild all quadrant more on L side), Normal Bowel Sounds. absent: Distended, Firm, Guarding - Extremities Exam Extremities Exam: Normal Inspection. absent: Calf Tenderness Additional comments: 1+ edema more left leg - Back Exam Back Exam: NORMAL INSPECTION. absent: CVA tenderness (L), CVA tenderness (R), paraspinal tenderness - Neurological Exam Neurological Exam: Alert, Awake, CN II-XII Intact, Oriented x3 - Psychiatric Exam Psychiatric exam: Anxious, Normal Affect, Normal Mood - Skin Skin Exam: Normal Color, Pallor, Warm Assessment and Plan - Assessment and Plan (Free Text) Assessment: GI Bleed BRBPR BM today, has been happening for the past few days Repeat CBC (hgb ths am 9.8) Type + Cross transfuse 1 unit PRBC Normal Saline IV @100cc Protonix 40mg IVP BID Bleeding Scan EGD today, colonoscopy tomorrow Surgery consulted, Dr. Allan Transfer to ICU Diverticulosis CT Abd/Pelvis with po contrast: diverticulosis without definite CT evidence of diverticulitis FOBT positive Monitor hemoglobin: today 9.8 stable GI consulted, Dr. Crouch, help appreciated VTE prophylaxis CI due to bleed Colonoscopy tomorrow, NPO after midnight Symptomatic Hypotension likely secondary to diarrhea, improving EKG: accelerated junctional rhythm; no acute ST-T changes f/u Echo CXR tomorrow morning Echo (10/07/14): left ventricle mildly dilated, LV systolic function normal, normal LV segmental wall motion, increased left atrial pressure, left atrium mild-moderately dilated, RV systolic function normal, calcified aortic valve Continue Normal Saline IV @100cc Orthostatic vital signs + Hold home BP medications Cardiology, Dr. Phan, consulted Acute Kidney Injury BUN/CR 24.1 baseline 1 - improving Continue IV fluids Monitor CAD s/p CABG Hold ASA 81 mg po daily due to rectal bleeding Hold Metoprolol 25 mg po BID, Lisinopril 10 mg po BID due to hypotension History of hypertension Hold home blood pressure medications as above UTI UA: 2+ Leuk esterase, WBC 22 Rocephin 1 gm IVPB Q12H Lower ext swelling more on L f/u dopplers Denied SOB Prophylaxis SCD Protonix 40mg IP BID VTE CI due to rectal bleeding
[2016-11-02] MEDS ORDERED: Sodium Chloride 0.9% 500 ML IV ONE (16:36)
--- NOTE | 2016-11-02 16:40 | CP.PCM.CON ---
History of Present Illness - History of Present Illness History of Present Illness: Surgery: Dr. Allan Reason for consult: Acute GI Bleed, hx of diverticulosis CC: bright red blood in diarrhea HPI: Patient is an 86 year old male with a past medical hx of diverticulosis and CAD who is consulted for acute GI bleed. Patient was brought to the ED two days ago for complaints of diffuse abdominal pain and hypotension (systolic 87) - BP meds held. Patient developed hematochezia and admitted filling the commode with blood after endoscopy this morning. [employer] was called and patient was transferred into ICU, vital signs remained stable throughout. The abdominal pain is mainly located in the LLQ of the abdomen with discomfort diffusely. He states the pain is cramp like which comes and goes. When the pain is present it is sharp in nature then resolves spontaneously after a few seconds. He denies feelings of nausea or episodes on vomiting. He actually reports feeling hungry. An endoscopy was performed this AM which showed acute gastritis and a medium- sized hiatus hernia; and will be scheduled for a colonoscopy tomorrow. Patient has never experienced this bleeding previously but endorses constipation for which he has been having BM's every two days. He denies seeing blood in stool until 48hours ago. Patient only take ASA at home regarding blood thinning medications. Patient had colonoscopy and EGD 7 years ago which showed diverticulosis, benign colon polyps and gastritis. Patient denies any additional complaints. PMHx: CAD, Diverticulosis, HLD, HTN PSHx: CABG, Open Cholecystectomy, Metal jaw plate reconstruction Allergies: Ciprofloxacin, Streptomycin Social: smokes 1/2 ppd for 62 years. Denies etoh and illicit drug use Review of Systems - Constitutional Constitutional: absent: Chills, Fever - Cardiovascular Cardiovascular: absent: Chest Pain, Diaphoresis - Respiratory Respiratory: absent: Cough, Dyspnea on Exertion - Gastrointestinal Gastrointestinal: Abdominal Pain, Diarrhea, Hematochezia. absent: Nausea, Vomiting - Genitourinary Genitourinary: absent: Dysuria, Flank Pain - Musculoskeletal Musculoskeletal: absent: Arthralgias, Back Pain - Integumentary Integumentary: absent: Pruritus, Rash - Neurological Neurological: absent: Dizziness, Headaches Past Patient History - Past Medical History & Family History Past Medical History?: Yes - Past Social History Smoking Status: Current Some Days Smoker - CARDIAC Hx Hypertension: Yes - PULMONARY Hx Respiratory Disorders: No - NEUROLOGICAL Hx Transient Ischemic Attacks (TIA): Yes - HEENT Other/Comment: left eye red and watery - RENAL Hx Chronic Kidney Disease: No - ENDOCRINE/METABOLIC Hx Endocrine Disorders: No - HEMATOLOGICAL/ONCOLOGICAL Hx Blood Disorders: No - INTEGUMENTARY Hx Dermatological Problems: No - MUSCULOSKELETAL/RHEUMATOLOGICAL Hx Falls: Yes Hx Herniated Disk: Yes - GASTROINTESTINAL Hx Gastrointestinal Disorders: No - GENITOURINARY/GYNECOLOGICAL Hx Genitourinary Disorders: No - PSYCHIATRIC Hx Substance Use: No - SURGICAL HISTORY Hx Coronary Artery Bypass Graft: Yes - ANESTHESIA Hx Anesthesia: Yes Hx Anesthesia Reactions: No Hx Malignant Hyperthermia: No Meds Allergies/Adverse Reactions: Allergies Allergy/AdvReac Type Severity Reaction Status Date / Time ciprofloxacin [From Cipro] Allergy Mild Verified 10/31/16 21:36 ciprofloxacin HCl Allergy Mild Verified 10/31/16 21:36 [From Cipro] streptomycin Allergy Mild Verified 10/31/16 21:36 - Medications Medications: Current Medications Ascorbic Acid (Vitamin C 500 Mg Tab) 500 mg PO DAILY [facility] Last Admin: 11/02/16 09:12 Dose: Not Given Bisacodyl (Dulcolax) 10 mg PO ONCE ONE Stop: 11/02/16 17:01 Ergocalciferol (Drisdol 50,000 Intl Units Cap) 1 cap PO QWK [facility] Last Admin: 11/01/16 09:10 Dose: 1 cap Ceftriaxone Sodium 1 gm/ (Sodium Chloride) 100 mls @ 100 mls/hr IVPB Q12H [facility] Last Admin: 11/02/16 11:06 Dose: 100 mls/hr Lactated Ringer's (Lactated Ringer's) 1,000 mls @ 125 mls/hr IV .Q8H [facility] Metronidazole (Flagyl) 100 mls @ 100 mls/hr IVPB Q8 [facility] Metoclopramide HCl (Reglan) 5 mg IVP ACHS [facility] Pantoprazole Sodium (Protonix Inj) 40 mg IVP Q12H [facility] Last Admin: 11/02/16 07:49 Dose: 40 mg Physical Exam - Constitutional Appears: Non-toxic, No Acute Distress - Head Exam Head Exam: ATRAUMATIC, NORMAL INSPECTION - Eye Exam Eye Exam: EOMI, Normal appearance. absent: Scleral icterus - ENT Exam ENT Exam: Mucous Membranes Moist - Respiratory Exam Respiratory Exam: Clear to Auscultation Bilateral. absent: Rhonchi, Wheezes - Cardiovascular Exam Cardiovascular Exam: REGULAR RHYTHM, +S1, +S2 - GI/Abdominal Exam GI & Abdominal Exam: Distended, Soft, Tenderness (located in LLQ mild ). absent : Guarding, Rebound, Rigid Additional comments: Kochar incision scar in RUQ - Rectal Exam Rectal Exam: Deferred Additional comments: patient refused - Extremities Exam Extremities exam: Positive for: normal inspection. Negative for: calf tenderness - Neurological Exam Neurological exam: Alert, Oriented x3 - Psychiatric Exam Psychiatric exam: Normal Affect, Normal Mood - Skin Skin Exam: Dry, Intact, Normal Color, Warm Results - Vital Signs Recent Vital Signs: Last Vital Signs Temp 97.9 F 11/02/16 14:45 Pulse 84 11/02/16 15:40 Resp 14 11/02/16 15:40 BP 138/57 L 11/02/16 15:40 Pulse Ox 97 11/02/16 15:40 - Labs Result Diagrams: 11/02/16 15:08 11/02/16 07:04 Labs: Laboratory Results - last 24 hr 11/01/16 11/02/16 11/02/16 19:58 07:04 15:08 WBC 11.9 H 9.8 11.3 H RBC 3.29 L 3.16 L 3.02 L Hgb 9.9 L 9.8 L 9.1 L Hct 29.2 L 28.1 L 27.1 L MCV 88.9 88.7 89.6 MCH 30.3 30.9 30.3 MCHC 34.0 34.8 33.8 RDW 13.2 13.7 13.7 Plt Count 160 147 157 MPV 9.2 9.0 8.7 Neut % (Auto) 61.4 Lymph % (Auto) 22.3 [place] % (Auto) 11.0 H Eos % (Auto) 4.1 H Baso % (Auto) 1.2 Neut # 6.0 Lymph # 2.2 [place] # 1.1 H Eos # 0.4 Baso # 0.1 PT 14.1 H INR 1.3 APTT 30 Sodium 138 Potassium 4.0 Chloride 105 Carbon Dioxide 26 Anion Gap 12 BUN 24 H Creatinine 1.1 Est GFR ( Amer) > 60 Est GFR (Non-Af Amer) > 60 Random Glucose 93 Calcium 7.4 L Phosphorus 3.0 Magnesium 2.0 Total Bilirubin 0.4 AST 20 ALT 27 Alkaline Phosphatase 49 Total Protein 5.1 L Albumin 2.7 L Globulin 2.4 Albumin/Globulin Ratio 1.1 Carcinoembryonic Ag 1.0 - Impressions Impression: CT scan 10/31: diverticulosis w/o evidence of diverticulitis Assessment & Plan - Assessment and Plan (Free Text) Assessment: 86M with hx of diverticulosis presents for acute GI bleed Plan: -type and cross for 4 units PRBC and 2 units FFP -add flagyl to cover possible flare of diverticulitis -increase IVFs to maintenance rate -insert eli for strict I's and O's -patient for colonoscopy tomorrow w/ GI, f/u results -f/u bleeding scan -H&H Q4hr until stabilized -agree w/ ICU monitoring -surgical intervention pending results of above studies -d/w Dr. Jerrell Mejia PGY1
[2016-11-02] MEDS ORDERED: metroNIDAZOLE IV 500 mg/100 ml 100 ML IVPB SCH (17:00)
[2016-11-02] MEDS ORDERED: Bisacodyl 5mg EC Tab PO ONE (17:00)
[2016-11-02] MEDS: metroNIDAZOLE IV 500 mg/100 ml 100 ML IVPB SCH ×2 (20:08→22:20)
--- NOTE | 2016-11-02 20:18 | NM ---
EXAM: NM GI Bleeding Scan. CLINICAL HISTORY: 86 years old, male; Signs and symptoms; Symptoms: Rectal bleeding; Additional info: Kobi hematochezia TECHNIQUE: Frontal images of the abdomen and pelvis were obtained over 60 minutes following the intravenous administration of 17 mCi [id number]-tuhymiea red blood cells. EXAM DATE/TIME: 11/02/2016 2:58 PM COMPARISON: Recent CT abdomen and pelvis 11/01/2016 FINDINGS: First seen at about 35 minutes post injection, there is an a focal area of radiotracer accumulation visualized in the pelvis, in the midline. This increases over time, and does appear to move slightly antegrade/inferiorly in the pelvis over time. This is suspicious for a focus of active GI bleeding, most likely localized to the sigmoid colon. IMPRESSION: Findings suspicious for a focus of active GI bleeding in the pelvis, most likely localized to sigmoid colon. See above for remaining findings.
[2016-11-02 21:18] LABS: HEMATOCRIT 25.8 % (35.0-51.0); MEAN CELL VOLUME 88.4 fL (80.0-94.0); MEAN CORPUSCULAR HEMOGLOBIN 29.6 pg (27.0-31.0); MEAN CORPUSCULAR HGB CONC 33.5 g/dL (33.0-37.0); MEAN PLATELET VOLUME 9.1 fL (7.2-11.7); RED CELL DISTRIBUTION WIDTH 13.6 % (11.5-14.5); WHITE BLOOD COUNT 11.4 K/uL (4.8-10.8)
--- NOTE | 2016-11-02 21:32 | CP.PCM.PN ---
Subjective - Date & Time of Evaluation Date of Evaluation: 11/02/16 Time of Evaluation: 21:29 - Subjective Subjective: patient's a bleeding scan is positive in the sigmoid region. Spoke to the radiologist. Patient received 1 unit of transfusion I also spoke to the surgeon. I ordered 2 more units of PRBC, already 2 units of FFP if there. transfusion will be given sound. Meanwhile we'll monitor closely the bleeding. we'll follow the hemoglobin. Patient may need a surgical intervention depending upon the bleeding. Objective - Vital Signs/Intake and Output Vital Signs (last 24 hours): Temp Pulse Resp BP Pulse Ox 98.5 F 81 29 H 113/44 L 100 11/02/16 21:00 11/02/16 21:05 11/02/16 21:05 11/02/16 21:05 11/02/16 21:05 Intake and Output: 11/02/16 11/03/16 18:59 06:59 Intake Total 0 325 Balance 0 325 - Medications Medications: Current Medications Ceftriaxone Sodium 1 gm/ (Sodium Chloride) 100 mls @ 100 mls/hr IVPB Q12H [facility] Last Admin: 11/02/16 11:06 Dose: 100 mls/hr Lactated Ringer's (Lactated Ringer's) 1,000 mls @ 125 mls/hr IV .Q8H [facility] Last Admin: 11/02/16 20:02 Dose: 125 mls/hr Metronidazole (Flagyl) 100 mls @ 100 mls/hr IVPB Q8 [facility] Last Admin: 11/02/16 20:08 Dose: 100 mls/hr Metoclopramide HCl (Reglan) 5 mg IVP ACHS [facility] Last Admin: 11/02/16 19:16 Dose: Not Given Pantoprazole Sodium (Protonix Inj) 40 mg IVP Q12H [facility] Last Admin: 11/02/16 20:07 Dose: 40 mg - Labs Labs: 11/02/16 15:08 11/02/16 07:04 PT 14.1 SECONDS (9.7-12.2) H 11/01/16 19:58 INR 1.3 11/01/16 19:58 APTT 30 SECONDS (21-34) 11/01/16 19:58
[2016-11-02 21:33] LABS: INR 1.2
--- NOTE | 2016-11-02 22:04 | CARD ---
APPROVED REPORT EKG Measurement Heart [id number] <Conclusion> Accelerated Junctional rhythm Moderate voltage criteria for LVH, may be normal variant Abnormal ECG
--- NOTE | 2016-11-02 22:05 | CARD ---
APPROVED REPORT EKG Measurement Heart [id number] <Conclusion> Accelerated Junctional rhythm Minimal voltage criteria for LVH, may be normal variant Abnormal ECG
[2016-11-02 23:00] LABS: HEMATOCRIT 27.9 % (35.0-51.0); MEAN CELL VOLUME 87.7 fL (80.0-94.0); MEAN CORPUSCULAR HEMOGLOBIN 29.4 pg (27.0-31.0); MEAN CORPUSCULAR HGB CONC 33.6 g/dL (33.0-37.0); MEAN PLATELET VOLUME 9.2 fL (7.2-11.7); RED CELL DISTRIBUTION WIDTH 13.5 % (11.5-14.5)
[2016-11-02] MEDS: Lactated Ringer's 1,000 ML IV SCH (23:12)
--- NOTE | 2016-11-03 00:45 | CARD ---
APPROVED REPORT EXAM: Two-dimensional and M-mode echocardiogram with Doppler and color Doppler. Other Information Quality : GoodRhythm : INDICATION Abnormal EKG/Arrhythmia Dizziness and Vertigo RISK FACTORS Hypertension 2D DIMENSIONS LVOT Diameter2.0 (1.8-2.4cm) M-Mode DIMENSIONS Left Atrium (MM)4.31 (2.5-4.0cm)IVSd1.62 (0.7-1.1cm) Aortic Root4.09 (2.2-3.7cm)LVDd5.97 (4.0-5.6cm) Aortic Cusp Exc.0.92 (1.5-2.0cm)PWd1.03 (0.7-1.1cm) FS (%) 44 %LVDs3.32 (2.0-3.8cm) LVEF (%)75 (>50%) Aortic Valve AoV Peak Jwzknpey524.2cm/sAoV VTI53.7cmAO Peak GR.23mmHg LVOT Peak Jeluzcwf443.0cm/sLVOT VTI33.51cmAO Mean GR.12mmHg BELINDA (VMAX)1.19ny7PLM (VTI)1.89cm2 Mitral Valve MV E Eehwpsfs661.4cm/sMV A Izpxttxy132.6cm/sE/A ratio1.3 TDI E/Lateral E'0.0E/Medial E'0.0 Tricuspid Valve TR Peak Wcbebygn851sp/sTR Peak Gr.05bxYaGBQD60bnXl LEFT VENTRICLE The Left Ventricle is mildly dilated. There is normal left ventricular wall thickness. Left ventricle systolic function is normal. The Ejection Fraction is >70%. There is normal LV segmental wall motion. The left ventricular diastolic function is normal. RIGHT VENTRICLE The right ventricle is normal size. There is normal right ventricular wall thickness. The right ventricular systolic function is normal. ATRIA The left atrium is mildly dilated. The right atrium size is normal. The interatrial septum is intact with no evidence for an atrial septal defect. AORTIC VALVE The aortic valve is mildly to moderately thickened and calcified. Cannot rule out vegetation.Clinical correlation suggested. No aortic regurgitation is present. There is mild valvular aortic stenosis. Calculated aortic valve area is 1.89 cm2 with maximum pressure gradient of 23 mmHg and mean pressure gradient of 12 mmHg. MITRAL VALVE The mitral valve is normal in structure. There is no evidence of mitral valve prolapse. There is no mitral valve stenosis. There is no mitral valve regurgitation noted. TRICUSPID VALVE The tricuspid valve is normal in structure. There is mild tricuspid regurgitation. Right ventricular systolic pressure is estimated at 40-50 mmHg. There is mild-moderate pulmonary hypertension. There is no tricuspid valve stenosis. PULMONIC VALVE The pulmonic valve is not well visualized. There is no pulmonic valvular regurgitation. GREAT VESSELS The aortic root is normal in size. PERICARDIAL EFFUSION There is no significant pericardial effusion. <Conclusion> Left ventricle systolic function is normal. The Ejection Fraction is >70%. There is mild valvular aortic stenosis. There is no mitral valve regurgitation noted. There is mild tricuspid regurgitation. There is mild-moderate pulmonary hypertension. There is no pulmonic valvular regurgitation.
[2016-11-03] MEDS: metroNIDAZOLE IV 500 mg/100 ml 100 ML IVPB SCH ×3 (05:41→22:25)
[2016-11-03 06:51] LABS: BASO # 0.1 K/uL (0.0-0.2); BASO % 0.9 % (0.0-2.0); EOS # 0.6 K/uL (0.0-0.7); EOS % 5.9 % (0.0-4.0); LYMPH # 2.2 K/uL (1.0-4.3); LYMPH % 20.4 % (20.0-40.0); MEAN CELL VOLUME 85.9 fL (80.0-94.0); MEAN CORPUSCULAR HEMOGLOBIN 30.8 pg (27.0-31.0); MEAN CORPUSCULAR HGB CONC 35.9 g/dL (33.0-37.0); MEAN PLATELET VOLUME 9.4 fL (7.2-11.7); MONO # 1.3 K/uL (0.0-0.8); MONO % 12.6 % (0.0-10.0); WHITE BLOOD COUNT 10.7 K/uL (4.8-10.8)
[2016-11-03 06:59] LABS: CHLORIDE 104 mmol/L (98-107)
[2016-11-03 07:00] LABS: SODIUM 138 mmol/L (132-148)
[2016-11-03 07:02] LABS: ALB/GLOB RATIO 0.9 (1.0-2.1); ALKALINE PHOSPHATASE 39 U/L (38-126); AST/SGOT 23 U/L (17-59); CARBON DIOXIDE 27 mmol/L (22-30); GFR AFRICAN-AMERICAN > 60; TOTAL PROTEIN 4.8 g/dL (6.3-8.3)
[2016-11-03 07:03] LABS: ALT/SGPT 34 U/L (21-72); BLOOD UREA NITROGEN 21 mg/dL (9-20); CALCIUM 7.5 mg/dl (8.6-10.4); GLUCOSE,RANDOM 83 mg/dL (75-110); MAGNESIUM 1.9 mg/dL (1.6-2.3); PHOSPHOROUS 2.7 mg/dL (2.5-4.5)
--- NOTE | 2016-11-03 08:16 | CP.CCUPN ---
<Emmanuel Guerra - Last Filed: 11/03/16 19:22> CCU Subjective - Physician Review Subjective (Free Text): 11/03/16 18:49 Patient seen and examined at bedside in no acute distress. The patient is saturating well on room air. Patient is conversing well and admits to an episode of BM with noted blood (black tarry) yesterday night. Patient admits to intermittent dizzying spells intermittently through the day today. Patient admits to abdominal pain in the right and left lower quadrants. Colonoscopy scheduled for 12:30 pm today with inconclusive findings due to actively bleeding diverticuli. Patient later transfused 2 additional units of PRBC with 1 unit FFP with repeat bloodwork. Otherwise, patient denied headaches, nausea, vomiting, paresthesias, visual changes, urinary changes dyspnea, palpitations, or chest pain a this time. CCU Objective - Vital Signs / Intake & Output Vital Signs (Last 4 hours): Vital Signs Pulse Resp BP Pulse Ox 11/03/16 07:01 82 26 H 139/66 96 11/03/16 07:00 80 26 H 96 11/03/16 06:18 70 27 H 95 11/03/16 06:01 74 26 H 132/56 L 95 11/03/16 06:00 74 28 H 95 11/03/16 05:02 73 21 124/52 L 96 11/03/16 05:00 74 25 H 98 11/03/16 04:48 72 26 H 98 Intake and Output (Last 8hrs): Intake & Output 11/02/16 11/03/16 11/03/16 22:59 06:59 14:59 Intake Total 1825 1542 75 Output Total 1 900 0 Balance 1824 642 75 Weight 220 lb Intake: Intake, IV Amount 1075 1167 75 Left Antecubital 650 217 Right Forearm 425 625 75 Lt AC 2nd port 325 Oral 50 Blood Product 650 325 Red Blood Cells Cpd As1 325 Lr Unit [id number] Red Blood Cells Cpd As1 325 Lr Unit [id number] Apheresis Rbc Cp2d As3 Lr 325 2nd Unit [id number] Other 50 50 Red Blood Cells Cpd As1 50 Lr Unit [id number] Apheresis Rbc Cp2d As3 Lr 50 2nd Unit [id number] Output: Urine 900 0 Urethral (Jones) 900 0 Stool 1 - Physical Exam Physical Exam Limitations: Negative for: Altered Mental Status Head: Positive for: Atraumatic, Normocephalic Pupils: Positive for: PERRL Extroacular Muscles: Positive for: EOMI Ears: Positive for: Normal Mouth: Positive for: Moist Mucous Membranes Nose (External): Positive for: Atraumatic Nose (Internal): Positive for: Normal Inspection Neck: Positive for: Normal Range of Motion Respiratory/Chest: Positive for: Clear to Auscultation. Negative for: Wheezes Cardiovascular: Positive for: Normal S1, S2 Abdomen: Positive for: Distention, Normal Bowel Sounds Back: Positive for: Normal Inspection Lower Extremity: Positive for: Normal ROM Neurological: Positive for: CN II-XII Intact, Speech Normal Skin: Positive for: Warm, Dry Psychiatric: Positive for: Alert, Oriented x 3, Anxious - Medications Active Medications: Active Medications Generic Name Dose Route Start Last Admin Trade Name Freq PRN Reason Stop Dose Admin Ceftriaxone Sodium 1 gm/ 100 mls @ 100 mls/hr 11/01/16 12:00 11/02/16 23:13 Sodium Chloride IVPB 100 mls/hr Q12H ANA Administration Metronidazole 100 mls @ 100 mls/hr 11/02/16 21:00 11/03/16 05:41 Flagyl IVPB 100 mls/hr Q8 ANA Administration Lactated Ringer's 1,000 mls @ 75 mls/hr 11/02/16 22:22 11/02/16 23:12 Lactated Ringer's IV 75 mls/hr .[id number] ANA Administration Metoclopramide HCl 5 mg 11/02/16 16:30 11/02/16 22:20 Reglan IVP 5 mg ACHS ANA Administration Pantoprazole Sodium 40 mg 11/02/16 07:30 11/02/16 20:07 Protonix Inj IVP 40 mg Q12H ANA Administration - Patient Studies Lab Studies: Lab Studies 11/03/16 11/02/16 11/02/16 Range/Units 06:34 22:57 21:14 WBC 10.7 12.0 H 11.4 H (4.8-10.8) K/uL RBC 3.15 L 3.18 L 2.92 L (4.40-5.90) Mil/uL Hgb 9.7 L 9.4 L 8.6 L (12.0-18.0) g/dL Hct 27.0 L 27.9 L 25.8 L (35.0-51.0) % MCV 85.9 87.7 88.4 (80.0-94.0) fL MCH 30.8 29.4 29.6 (27.0-31.0) pg MCHC 35.9 33.6 33.5 (33.0-37.0) g/dL RDW 14.0 13.5 13.6 (11.5-14.5) % Plt Count 124 L 141 148 (130-400) K/uL MPV 9.4 9.2 9.1 (7.2-11.7) fL Neut % (Auto) 60.2 (50.0-75.0) % Lymph % (Auto) 20.4 (20.0-40.0) % Yates % (Auto) 12.6 H (0.0-10.0) % Eos % (Auto) 5.9 H (0.0-4.0) % Baso % (Auto) 0.9 (0.0-2.0) % Neut # 6.4 (1.8-7.0) K/uL Lymph # 2.2 (1.0-4.3) K/uL Yates # 1.3 H (0.0-0.8) K/uL Eos # 0.6 (0.0-0.7) K/uL Baso # 0.1 (0.0-0.2) K/uL PT 13.9 H (9.7-12.2) SECONDS INR 1.2 APTT 28 (21-34) SECONDS Sodium 138 (132-148) mmol/L Potassium 4.0 (3.6-5.2) mmol/L Chloride 104 (98-107) mmol/L Carbon Dioxide 27 (22-30) mmol/L Anion Gap 11 (10-20) BUN 21 H (9-20) mg/dL Creatinine 1.0 (0.8-1.5) MG/DL Est GFR ( Amer) > 60 Est GFR (Non-Af Amer) > 60 Random Glucose 83 (75-110) mg/dL Calcium 7.5 L (8.6-10.4) mg/dl Phosphorus 2.7 (2.5-4.5) mg/dL Magnesium 1.9 (1.6-2.3) mg/dL Total Bilirubin 2.0 H (0.2-1.3) mg/dL AST 23 (17-59) U/L ALT 34 (21-72) U/L Alkaline Phosphatase 39 (38-126) U/L Total Protein 4.8 L (6.3-8.3) g/dL Albumin 2.3 L (3.5-5.0) g/dL Globulin 2.5 (2.2-3.9) gm/dL Albumin/Globulin Ratio 0.9 L (1.0-2.1) Blood Type Antibody Screen 11/02/16 Range/Units 15:08 WBC 11.3 H (4.8-10.8) K/uL RBC 3.02 L (4.40-5.90) Mil/uL Hgb 9.1 L (12.0-18.0) g/dL Hct 27.1 L (35.0-51.0) % MCV 89.6 (80.0-94.0) fL MCH 30.3 (27.0-31.0) pg MCHC 33.8 (33.0-37.0) g/dL RDW 13.7 (11.5-14.5) % Plt Count 157 (130-400) K/uL MPV 8.7 (7.2-11.7) fL Neut % (Auto) (50.0-75.0) % Lymph % (Auto) (20.0-40.0) % Yates % (Auto) (0.0-10.0) % Eos % (Auto) (0.0-4.0) % Baso % (Auto) (0.0-2.0) % Neut # (1.8-7.0) K/uL Lymph # (1.0-4.3) K/uL Yates # (0.0-0.8) K/uL Eos # (0.0-0.7) K/uL Baso # (0.0-0.2) K/uL PT (9.7-12.2) SECONDS INR APTT (21-34) SECONDS Sodium (132-148) mmol/L Potassium (3.6-5.2) mmol/L Chloride (98-107) mmol/L Carbon Dioxide (22-30) mmol/L Anion Gap (10-20) BUN (9-20) mg/dL Creatinine (0.8-1.5) MG/DL Est GFR ( Amer) Est GFR (Non-Af Amer) Random Glucose (75-110) mg/dL Calcium (8.6-10.4) mg/dl Phosphorus (2.5-4.5) mg/dL Magnesium (1.6-2.3) mg/dL Total Bilirubin (0.2-1.3) mg/dL AST (17-59) U/L ALT (21-72) U/L Alkaline Phosphatase (38-126) U/L Total Protein (6.3-8.3) g/dL Albumin (3.5-5.0) g/dL Globulin (2.2-3.9) gm/dL Albumin/Globulin Ratio (1.0-2.1) Blood Type O POSITIVE Antibody Screen Negative Laboratory Results - last 24 hr 11/02/16 11/02/16 11/02/16 15:08 21:14 22:57 WBC 11.3 H 11.4 H 12.0 H RBC 3.02 L 2.92 L 3.18 L Hgb 9.1 L 8.6 L 9.4 L Hct 27.1 L 25.8 L 27.9 L MCV 89.6 88.4 87.7 MCH 30.3 29.6 29.4 MCHC 33.8 33.5 33.6 RDW 13.7 13.6 13.5 Plt Count 157 148 141 MPV 8.7 9.1 9.2 Neut % (Auto) Lymph % (Auto) Yates % (Auto) Eos % (Auto) Baso % (Auto) Neut # Lymph # Yates # Eos # Baso # PT 13.9 H INR 1.2 APTT 28 Sodium Potassium Chloride Carbon Dioxide Anion Gap BUN Creatinine Est GFR ( Amer) Est GFR (Non-Af Amer) Random Glucose Calcium Phosphorus Magnesium Total Bilirubin AST ALT Alkaline Phosphatase Total Protein Albumin Globulin Albumin/Globulin Ratio Blood Type O POSITIVE Antibody Screen Negative 11/03/16 06:34 WBC 10.7 RBC 3.15 L Hgb 9.7 L Hct 27.0 L MCV 85.9 MCH 30.8 MCHC 35.9 RDW 14.0 Plt Count 124 L MPV 9.4 Neut % (Auto) 60.2 Lymph % (Auto) 20.4 Yates % (Auto) 12.6 H Eos % (Auto) 5.9 H Baso % (Auto) 0.9 Neut # 6.4 Lymph # 2.2 Yates # 1.3 H Eos # 0.6 Baso # 0.1 PT INR APTT Sodium 138 Potassium 4.0 Chloride 104 Carbon Dioxide 27 Anion Gap 11 BUN 21 H Creatinine 1.0 Est GFR ( Amer) > 60 Est GFR (Non-Af Amer) > 60 Random Glucose 83 Calcium 7.5 L Phosphorus 2.7 Magnesium 1.9 Total Bilirubin 2.0 H AST 23 ALT 34 Alkaline Phosphatase 39 Total Protein 4.8 L Albumin 2.3 L Globulin 2.5 Albumin/Globulin Ratio 0.9 L Blood Type Antibody Screen Review of Systems - Review of Systems Review of Systems: as noted in subjective Critical Care Progress Note - Nutrition Nutrition: Nutrition Category Date Time Status NPO Diet [DIET] Diets 11/02/16 Dinner Active Assessment/Plan - Assessment and Plan (Free Text) Assessment: 86 year old male presents with a past medical history of CAD s/p CABG in 1992, HTN, COPD, venous insufficiency and diverticulosis, and constipation, who presented to the ED with complaints of dizziness and low blood pressure x2 days. Patient completed an EGD, and had worsening symptoms of GI bleed along with a drop of Hemoglobin 9.9 to 9.1. Patient was admitted to the ICU for close monitoring and given three transfusions of PRBC and 1 unit of FFP. Patient is NPO. Colonoscopy aborted today after actively bleeding during procedure. Patient transfused another 2 units PRBC and 1 unit FFP. Considerations for angiography vs surgery at this point. Plan: Neuro: Monitor for changes in mental status, alertness Cardio: Pt has no angina or evidence of acute ischemic syndrome Patient does not have junctional rhythm. Patient has first degree AV block. This is no way to related to fatigue and dizziness. 11/01/16 Echo: normal LV systolic function. EF >70%. Mild valvular aortic stenosis. No mitral valve regurgitation, mild tricuspid regurgitation, mild- moderate pulmonary hypertension, no pulmonic valvular regurgitation. 10/07/14 Echo: LV mild dilating, normal LV systolic function, normal LV segmental wall motion, increased LA Pressure, left LA mild-moderately dilated, normal RV systolic function, calcified aortic valve. Pulmonary: Maintain O2 Sat >92% Imagin/15 CXR: mild venous congestion. Mild patchy bibasilar increased markings 11/01 CXR: Biapical pleural thickening with upper lobe granulomatous changes. Diffuse chronic increased interstitial lung markings with bild patchy left basilar airspace opacities. Endo: Maintain euglycemia GI: Monitor Bowel movements Monitor GI bleed - to be transfused PRBC and FFP. H and H Q4 until stabilized. Three units of PRBC transfused with 1 unit FFP yesterday. Metoclopramide 5 mg IVP ACHS ANA Ducolax 10 mg PO once Report: 11/02 - Bleeding scan site of bleeding is in the sigmoid colon Endoscopy report hiatal hernia, erosions and erythema found in gastric antrum , biopsies taken for H.pylori testing. Imagin/16 Colonoscopy: Estimated blood loss 20 cc. Post op diagnosis: hemorrhoids and active bleeding diverticulosis. Retained old blood and blood clots.. Procedure had to be stopped due to patient actively bleeding- repeat to be scheduled at a later time. Unlikely that patient can tolerate another procedure until this resolves Interventional Radiology on board for angiogram studies F/U with suregery recommendations if at all once patient's bleeding can be controlled.- transfused 2 untis PRBC and 1 unit FFP 18:00 11/03/16 : I/Os 1200/1450/-250 Monitor I/Os Jones inserted Maintain Jones Care Heme: H&H 06:34 9.7/28.4, 14:47 10.2/29.5, F/U repeat CBC following transfusin 2 units PRBC and 1 unit FFP Hemoglobin: 11.4>9.9>9.8>9.1>8.6>9.4>9.7>10.2>8.8 Daily CBC Renal: Monitor I/Os Lactated Ringer's 1000 cc @ 75 cc/hr IV [id number] ANA MSK: PT/OT evaluation Ergocalciferol 1 cap PO QWK ANA Ascorbic Acid 500 mg PO daily ID: Positive stool leukocytes Daily CBCs Ceftriaxone 1 gm 100cc/hr Q12H ANA Flagyl 100 cc @ 100 cc/hr IVPB Q8 ANA Prophylaxis: DVT: Contraindications for VTE given active bleeding status GI: Pantoprazole 40 mg IVP Q12H <Cirilo Babb - Last Filed: 11/04/16 12:32> CCU Objective - Vital Signs / Intake & Output Vital Signs (Last 4 hours): Vital Signs Temp Pulse Resp BP 11/04/16 11:48 77 18 92/33 L 11/04/16 11:30 98.0 F 86 18 123/67 11/04/16 11:15 97.8 F 83 18 117/63 11/04/16 11:00 98.6 F 84 20 124/60 Intake and Output (Last 8hrs): Intake & Output 11/03/16 11/04/16 11/04/16 22:59 06:59 14:59 Intake Total 2024 1000 0 Output Total 312 310 Balance 1713 690 0 Weight 227 lb 6 oz Intake: Intake, IV Amount 700 700 Left Antecubital 100 100 Right Forearm 600 600 Blood Product 1300 300 0 Apheresis Rbc Cp2d As3 Lr 325 1st Unit [id number] Apheresis Rbc Cp2d As3 Lr 325 2nd Unit [id number] Apheresis Rbc Cp2d As3 Lr 0 1st Unit [id number] Other 25 Apheresis Rbc Cp2d As3 Lr 25 1st Unit [id number] Output: Urine 310 310 Urethral (Jones) 310 310 Emesis 2 - Medications Active Medications: Active Medications Generic Name Dose Route Start Last Admin Trade Name Freq PRN Reason Stop Dose Admin Ceftriaxone Sodium 1 gm/ 100 mls @ 100 mls/hr 11/01/16 12:00 11/04/16 00:00 Sodium Chloride IVPB 100 mls/hr Q12H ANA Administration Metronidazole 100 mls @ 100 mls/hr 11/02/16 21:00 11/04/16 06:13 Flagyl IVPB 100 mls/hr Q8 ANA Administration Lactated Ringer's 1,000 mls @ 75 mls/hr 11/02/16 22:22 11/04/16 03:35 Lactated Ringer's IV 75 mls/hr .[id number] ANA Administration Metoclopramide HCl 5 mg 11/02/16 16:30 11/04/16 08:17 Reglan IVP 5 mg ACHS ANA Administration Pantoprazole Sodium 40 mg 11/02/16 07:30 11/04/16 08:16 Protonix Inj IVP 40 mg Q12H ANA Administration - Patient Studies Lab Studies: Microbiology Studies 11/02/16 Unknown MRSA Culture (Admit) - Final Naris MRSA NOT DETECTED 11/01/16 11:30 Urine Culture - Final Urine No Growth (<1,000 CFU/ML) 11/01/16 Unknown Stool Culture - Final Stool NO SALMONELLA, SHIGELLA OR CAMPYLOBACTER ISOLATED. Lab Studies 11/04/16 11/04/16 11/03/16 Range/Units 10:45 03:45 17:40 WBC 11.9 H 12.9 H 13.4 H (4.8-10.8) K/uL RBC 2.94 L 3.21 L 2.96 L (4.40-5.90) Mil/uL Hgb 8.7 L 9.4 L 8.8 L (12.0-18.0) g/dL Hct 25.6 L 28.2 L 25.9 L (35.0-51.0) % MCV 87.1 87.8 87.5 (80.0-94.0) fL MCH 29.5 29.4 29.6 (27.0-31.0) pg MCHC 33.9 33.5 33.9 (33.0-37.0) g/dL RDW 14.0 14.0 13.9 (11.5-14.5) % Plt Count 142 131 150 (130-400) K/uL MPV 9.0 9.1 8.6 (7.2-11.7) fL Neut % (Auto) 67.8 78.3 H (50.0-75.0) % Lymph % (Auto) 16.8 L 10.7 L (20.0-40.0) % Yates % (Auto) 11.1 H 7.4 (0.0-10.0) % Eos % (Auto) 3.7 3.3 (0.0-4.0) % Baso % (Auto) 0.6 0.3 (0.0-2.0) % Neut # 8.0 H 10.1 H (1.8-7.0) K/uL Lymph # 2.0 1.4 (1.0-4.3) K/uL Yates # 1.3 H 1.0 H (0.0-0.8) K/uL Eos # 0.4 0.4 (0.0-0.7) K/uL Baso # 0.1 0.0 (0.0-0.2) K/uL PT 14.4 H (9.7-12.2) SECONDS INR 1.3 APTT 28 (21-34) SECONDS Sodium 136 (132-148) mmol/L Potassium 3.7 (3.6-5.2) mmol/L Chloride 103 (98-107) mmol/L Carbon Dioxide 25 (22-30) mmol/L Anion Gap 13 (10-20) BUN 21 H (9-20) mg/dL Creatinine 1.0 (0.8-1.5) MG/DL Est GFR ( Amer) > 60 Est GFR (Non-Af Amer) > 60 Random Glucose 101 (75-110) mg/dL Calcium 7.1 L (8.6-10.4) mg/dl Phosphorus 3.1 (2.5-4.5) mg/dL Magnesium 1.7 (1.6-2.3) mg/dL Total Bilirubin 2.5 H (0.2-1.3) mg/dL AST 24 (17-59) U/L ALT 33 (21-72) U/L Alkaline Phosphatase 45 (38-126) U/L Total Protein 4.9 L (6.3-8.3) g/dL Albumin 2.6 L (3.5-5.0) g/dL Globulin 2.3 (2.2-3.9) gm/dL Albumin/Globulin Ratio 1.1 (1.0-2.1) Blood Type Antibody Screen 11/03/16 11/02/16 Range/Units 14:47 15:08 WBC 12.2 H (4.8-10.8) K/uL RBC 3.36 L (4.40-5.90) Mil/uL Hgb 10.2 L (12.0-18.0) g/dL Hct 29.5 L (35.0-51.0) % MCV 87.9 (80.0-94.0) fL MCH 30.2 (27.0-31.0) pg MCHC 34.4 (33.0-37.0) g/dL RDW 14.1 (11.5-14.5) % Plt Count 134 (130-400) K/uL MPV 8.7 (7.2-11.7) fL Neut % (Auto) (50.0-75.0) % Lymph % (Auto) (20.0-40.0) % Yates % (Auto) (0.0-10.0) % Eos % (Auto) (0.0-4.0) % Baso % (Auto) (0.0-2.0) % Neut # (1.8-7.0) K/uL Lymph # (1.0-4.3) K/uL Yates # (0.0-0.8) K/uL Eos # (0.0-0.7) K/uL Baso # (0.0-0.2) K/uL PT (9.7-12.2) SECONDS INR APTT (21-34) SECONDS Sodium (132-148) mmol/L Potassium (3.6-5.2) mmol/L Chloride (98-107) mmol/L Carbon Dioxide (22-30) mmol/L Anion Gap (10-20) BUN (9-20) mg/dL Creatinine (0.8-1.5) MG/DL Est GFR ( Amer) Est GFR (Non-Af Amer) Random Glucose (75-110) mg/dL Calcium (8.6-10.4) mg/dl Phosphorus (2.5-4.5) mg/dL Magnesium (1.6-2.3) mg/dL Total Bilirubin (0.2-1.3) mg/dL AST (17-59) U/L ALT (21-72) U/L Alkaline Phosphatase (38-126) U/L Total Protein (6.3-8.3) g/dL Albumin (3.5-5.0) g/dL Globulin (2.2-3.9) gm/dL Albumin/Globulin Ratio (1.0-2.1) Blood Type O POSITIVE Antibody Screen Negative Laboratory Results - last 24 hr 11/02/16 11/03/16 11/03/16 15:08 14:47 17:40 WBC 12.2 H 13.4 H RBC 3.36 L 2.96 L Hgb 10.2 L 8.8 L Hct 29.5 L 25.9 L MCV 87.9 87.5 MCH 30.2 29.6 MCHC 34.4 33.9 RDW 14.1 13.9 Plt Count 134 150 MPV 8.7 8.6 Neut % (Auto) Lymph % (Auto) Yates % (Auto) Eos % (Auto) Baso % (Auto) Neut # Lymph # Yates # Eos # Baso # PT 14.4 H INR 1.3 APTT 28 Sodium Potassium Chloride Carbon Dioxide Anion Gap BUN Creatinine Est GFR ( Amer) Est GFR (Non-Af Amer) Random Glucose Calcium Phosphorus Magnesium Total Bilirubin AST ALT Alkaline Phosphatase Total Protein Albumin Globulin Albumin/Globulin Ratio Blood Type O POSITIVE Antibody Screen Negative 11/04/16 11/04/16 03:45 10:45 WBC 12.9 H 11.9 H RBC 3.21 L 2.94 L Hgb 9.4 L 8.7 L Hct 28.2 L 25.6 L MCV 87.8 87.1 MCH 29.4 29.5 MCHC 33.5 33.9 RDW 14.0 14.0 Plt Count 131 142 MPV 9.1 9.0 Neut % (Auto) 78.3 H 67.8 Lymph % (Auto) 10.7 L 16.8 L Yates % (Auto) 7.4 11.1 H Eos % (Auto) 3.3 3.7 Baso % (Auto) 0.3 0.6 Neut # 10.1 H 8.0 H Lymph # 1.4 2.0 Yates # 1.0 H 1.3 H Eos # 0.4 0.4 Baso # 0.0 0.1 PT INR APTT Sodium 136 Potassium 3.7 Chloride 103 Carbon Dioxide 25 Anion Gap 13 BUN 21 H Creatinine 1.0 Est GFR ( Amer) > 60 Est GFR (Non-Af Amer) > 60 Random Glucose 101 Calcium 7.1 L Phosphorus 3.1 Magnesium 1.7 Total Bilirubin 2.5 H AST 24 ALT 33 Alkaline Phosphatase 45 Total Protein 4.9 L Albumin 2.6 L Globulin 2.3 Albumin/Globulin Ratio 1.1 Blood Type Antibody Screen EKG/Cardiology Studies: Cardiology / EKG Studies 11/04/16 04:49 EKG [ELECTROCARDIOGRAM] Stat Comment: Mode Of Transportation: PORTABLE Reason For Exam: Chest tightness Critical Care Progress Note - Nutrition Nutrition: Nutrition Category Date Time Status NPO Diet [DIET] Diets 11/02/16 Dinner Active Attending/Attestation - Attestation I have personally seen and examined this patient.: Yes I have fully participated in the care of the patient.: Yes I have reviewed all pertinent clinical information: Yes Notes (Text): Today: October The Patient was seen and examined at the bedside, Medical records reviewed, all clinical/lab/hemodynamic/radiographic data were reviewed and management issues were discussed and formulated, Events reviewed Pain issues, skin care, head of the bed elevation, glycemic control were addressed. 86 Y/O critically sick M with CAD, Diverticulosis, HLD, HTN, who was transferred to ICU with active lower GI bleeding, BP maintaining, requiring aggressive volume resuscitation with IV fluids, RBC and FFP Discussed the plans with GI, Surgery and IR S/p positive bleeding scan S/p Colonoscopy with Epi injection today Continue NPO IV Hydration, Volume resuscitation Two large bore peripheral catheters Supplemental O2 Holding antihypertensives Nasogastric tube Monitor urine output Monitor I&O Serial CBCs q 6 /HR, RBC transfusions to keep hemoglobin > 9 inview of GI bleeding GI/ DVT PPx: SCD; IV Pantoprazole BID Code: full Total critical care time 68 minutes Agree with above treatment plans as transcribed in Dr. Guerra note
[2016-11-03 10:52] LABS: HEMATOCRIT 28.4 % (35.0-51.0); MEAN CELL VOLUME 87.3 fL (80.0-94.0); MEAN CORPUSCULAR HEMOGLOBIN 29.9 pg (27.0-31.0); MEAN CORPUSCULAR HGB CONC 34.3 g/dL (33.0-37.0); MEAN PLATELET VOLUME 8.8 fL (7.2-11.7); WHITE BLOOD COUNT 11.3 K/uL (4.8-10.8)
--- NOTE | 2016-11-03 11:13 | CP.PCM.PCO ---
Physician Communication Note - Physician Communication Note Physician Communication Note: If pt nees surgery, advise pre-op nuclear stress with serene
--- NOTE | 2016-11-03 13:03 | CP.PCM.PN ---
<Jimmy LeesDl - Last Filed: 11/03/16 13:00> Subjective - Date & Time of Evaluation Date of Evaluation: 11/03/16 Time of Evaluation: 08:00 - Subjective Subjective: Surgery: Dr. Allan Patient states he feels well this am. Abdominal pain has improved. He denies any further bleeding from rectum. Nursing reports dark tarry stool today. He denies n/v/f/c. He is for colonoscopy today. Objective - Vital Signs/Intake and Output Vital Signs (last 24 hours): Temp Pulse Resp BP Pulse Ox 98.4 F 71 27 H 109/41 L 95 11/03/16 02:00 11/03/16 12:17 11/03/16 12:17 11/03/16 12:17 11/03/16 12:17 Intake and Output: 11/03/16 11/03/16 06:59 18:59 Intake Total 3367 155 Output Total 901 465 Balance 2466 -310 - Medications Medications: Current Medications Ceftriaxone Sodium 1 gm/ (Sodium Chloride) 100 mls @ 100 mls/hr IVPB Q12H [facility] Last Admin: 11/03/16 11:32 Dose: 100 mls/hr Metronidazole (Flagyl) 100 mls @ 100 mls/hr IVPB Q8 ANA Last Admin: 11/03/16 05:41 Dose: 100 mls/hr Lactated Ringer's (Lactated Ringer's) 1,000 mls @ 75 mls/hr IV .[id number] [facility] Last Admin: 11/02/16 23:12 Dose: 75 mls/hr Metoclopramide HCl (Reglan) 5 mg IVP ACHS ANA Last Admin: 11/03/16 11:34 Dose: 5 mg Pantoprazole Sodium (Protonix Inj) 40 mg IVP Q12H ANA Last Admin: 11/03/16 08:54 Dose: 40 mg - Labs Labs: 11/03/16 10:38 11/03/16 06:34 PT 13.9 SECONDS (9.7-12.2) H 11/02/16 21:14 INR 1.2 11/02/16 21:14 APTT 28 SECONDS (21-34) 11/02/16 21:14 - Constitutional Appears: Non-toxic, No Acute Distress - Head Exam Head Exam: ATRAUMATIC, NORMOCEPHALIC - Eye Exam Eye Exam: EOMI, Normal appearance - ENT Exam ENT Exam: Mucous Membranes Moist - Respiratory Exam Respiratory Exam: NORMAL BREATHING PATTERN. absent: Respiratory Distress - Cardiovascular Exam Cardiovascular Exam: REGULAR RHYTHM. absent: Tachycardia - GI/Abdominal Exam GI & Abdominal Exam: Distended, Soft, Tenderness (mild in LLQ). absent: Guarding, Rigid, Rebound - Extremities Exam Extremities Exam: absent: Calf Tenderness - Neurological Exam Neurological Exam: Alert, Awake, Oriented x3 - Psychiatric Exam Psychiatric exam: Normal Affect, Normal Mood - Skin Skin Exam: Dry, Intact, Warm Assessment and Plan - Assessment and Plan (Free Text) Assessment: 86 M w/ acute GI bleed Plan: -tagged RBC scan + in sigmoid colon -transfuse prn -f/u H&H -f/u colonoscopy -per cardio recommend stress test prior to OR if needed -surgical intervention pending clinical course -cont current managment -further recs per Dr. Jerrell Mejia PGY1 <Gus Allan D - Last Filed: 11/04/16 13:21> Objective - Vital Signs/Intake and Output Vital Signs (last 24 hours): Temp Pulse Resp BP Pulse Ox 98.6 F 71 24 98/32 L 93 L 11/04/16 12:24 11/04/16 12:24 11/04/16 12:24 11/04/16 12:24 11/04/16 05:46 Intake and Output: 11/04/16 11/04/16 06:59 18:59 Intake Total 2700 0 Output Total 430 Balance 2270 0 - Medications Medications: Current Medications Ceftriaxone Sodium 1 gm/ (Sodium Chloride) 100 mls @ 100 mls/hr IVPB Q12H [facility] Last Admin: 11/04/16 12:19 Dose: 100 mls/hr Metronidazole (Flagyl) 100 mls @ 100 mls/hr IVPB Q8 [facility] Last Admin: 11/04/16 06:13 Dose: 100 mls/hr Lactated Ringer's (Lactated Ringer's) 1,000 mls @ 75 mls/hr IV .[id number] [facility] Last Admin: 11/04/16 03:35 Dose: 75 mls/hr Metoclopramide HCl (Reglan) 5 mg IVP ACHS [facility] Last Admin: 11/04/16 12:18 Dose: 5 mg Pantoprazole Sodium (Protonix Inj) 40 mg IVP Q12H ANA Last Admin: 11/04/16 08:16 Dose: 40 mg - Labs Labs: 11/04/16 10:45 11/04/16 03:45 PT 14.4 SECONDS (9.7-12.2) H 11/03/16 17:40 INR 1.3 11/03/16 17:40 APTT 28 SECONDS (21-34) 11/03/16 17:40
[2016-11-03] MEDS ORDERED: Propofol 10 mg/ml Inj (20 ML) ONE (13:25)
[2016-11-03] MEDS ORDERED: Lidocaine Hydrochloride 5 ML INJ ONE (13:26)
[2016-11-03] MEDS: Lactated Ringer's 1,000 ML IV SCH (13:30)
[2016-11-03 14:51] LABS: HEMATOCRIT 29.5 % (35.0-51.0); MEAN CELL VOLUME 87.9 fL (80.0-94.0); MEAN CORPUSCULAR HEMOGLOBIN 30.2 pg (27.0-31.0); MEAN CORPUSCULAR HGB CONC 34.4 g/dL (33.0-37.0); MEAN PLATELET VOLUME 8.7 fL (7.2-11.7); RED CELL DISTRIBUTION WIDTH 14.1 % (11.5-14.5); WHITE BLOOD COUNT 12.2 K/uL (4.8-10.8)
--- NOTE | 2016-11-03 17:35 | CP.PCM.PN ---
Subjective - Date & Time of Evaluation Date of Evaluation: 11/03/16 Time of Evaluation: 17:34 - Subjective Subjective: doing well post colonscopy no abd pain wants to eat mouth dry Objective - Vital Signs/Intake and Output Vital Signs (last 24 hours): Temp Pulse Resp BP Pulse Ox 98.4 F 82 17 112/49 L 95 11/03/16 13:25 11/03/16 17:00 11/03/16 17:00 11/03/16 16:48 11/03/16 17:00 Intake and Output: 11/03/16 11/03/16 06:59 18:59 Intake Total 3367 480 Output Total 901 767 Balance 2466 -287 - Medications Medications: Current Medications Ceftriaxone Sodium 1 gm/ (Sodium Chloride) 100 mls @ 100 mls/hr IVPB Q12H [facility] Last Admin: 11/03/16 11:32 Dose: 100 mls/hr Metronidazole (Flagyl) 100 mls @ 100 mls/hr IVPB Q8 [facility] Last Admin: 11/03/16 14:16 Dose: 100 mls/hr Lactated Ringer's (Lactated Ringer's) 1,000 mls @ 75 mls/hr IV .[id number] [facility] Last Admin: 11/03/16 13:30 Dose: 75 mls/hr Metoclopramide HCl (Reglan) 5 mg IVP ACHS [facility] Last Admin: 11/03/16 16:31 Dose: 5 mg Pantoprazole Sodium (Protonix Inj) 40 mg IVP Q12H [facility] Last Admin: 11/03/16 08:54 Dose: 40 mg - Labs Labs: 11/03/16 14:47 11/03/16 06:34 PT 13.9 SECONDS (9.7-12.2) H 11/02/16 21:14 INR 1.2 11/02/16 21:14 APTT 28 SECONDS (21-34) 11/02/16 21:14 - Constitutional Appears: Well, Non-toxic - Head Exam Head Exam: ATRAUMATIC - Eye Exam Additional comments: pallor - ENT Exam ENT Exam: Mucous Membranes Dry - Respiratory Exam Respiratory Exam: Clear to Ausculation Bilateral, NORMAL BREATHING PATTERN - Cardiovascular Exam Cardiovascular Exam: REGULAR RHYTHM, +S1, +S2 - GI/Abdominal Exam GI & Abdominal Exam: Soft, Normal Bowel Sounds. absent: Tenderness Additional comments: obese - Rectal Exam Rectal Exam: Bloody Stool - Extremities Exam Extremities Exam: Normal Inspection. absent: Calf Tenderness - Neurological Exam Neurological Exam: Alert, Awake, Oriented x3 - Skin Skin Exam: Pallor Assessment and Plan - Assessment and Plan (Free Text) Assessment: Lower gi bleeding Diverticular in origin acute blood loss anemia due to GI bleeding s/p c scope still with active bleeding cont to monitor in icu h/h stable post transfusion
[2016-11-03 17:46] LABS: HEMATOCRIT 25.9 % (35.0-51.0); MEAN CELL VOLUME 87.5 fL (80.0-94.0); MEAN CORPUSCULAR HEMOGLOBIN 29.6 pg (27.0-31.0); MEAN CORPUSCULAR HGB CONC 33.9 g/dL (33.0-37.0); MEAN PLATELET VOLUME 8.6 fL (7.2-11.7); RED CELL DISTRIBUTION WIDTH 13.9 % (11.5-14.5); WHITE BLOOD COUNT 13.4 K/uL (4.8-10.8)
[2016-11-03 17:57] LABS: INR 1.3
[2016-11-04] MEDS: Lactated Ringer's 1,000 ML IV SCH ×2 (03:35→14:16)
[2016-11-04 03:50] LABS: BASO % 0.3 % (0.0-2.0); EOS # 0.4 K/uL (0.0-0.7); EOS % 3.3 % (0.0-4.0); HEMATOCRIT 28.2 % (35.0-51.0); LYMPH # 1.4 K/uL (1.0-4.3); LYMPH % 10.7 % (20.0-40.0); MEAN CELL VOLUME 87.8 fL (80.0-94.0); MEAN CORPUSCULAR HEMOGLOBIN 29.4 pg (27.0-31.0); MEAN CORPUSCULAR HGB CONC 33.5 g/dL (33.0-37.0); MEAN PLATELET VOLUME 9.1 fL (7.2-11.7); MONO % 7.4 % (0.0-10.0); NRBC % 0.1 % (0.0-2.0); WHITE BLOOD COUNT 12.9 K/uL (4.8-10.8)
[2016-11-04 03:56] LABS: CHLORIDE 103 mmol/L (98-107); POTASSIUM 3.7 mmol/L (3.6-5.2); SODIUM 136 mmol/L (132-148)
[2016-11-04 03:58] LABS: BILIRUBIN,TOTAL 2.5 mg/dL (0.2-1.3); GFR AFRICAN-AMERICAN > 60
[2016-11-04 03:59] LABS: ALKALINE PHOSPHATASE 45 U/L (38-126); ALT/SGPT 33 U/L (21-72); AST/SGOT 24 U/L (17-59); BLOOD UREA NITROGEN 21 mg/dL (9-20); CARBON DIOXIDE 25 mmol/L (22-30); GLUCOSE,RANDOM 101 mg/dL (75-110); PHOSPHOROUS 3.1 mg/dL (2.5-4.5); TOTAL PROTEIN 4.9 g/dL (6.3-8.3)
[2016-11-04 04:00] LABS: CALCIUM 7.1 mg/dl (8.6-10.4); MAGNESIUM 1.7 mg/dL (1.6-2.3)
[2016-11-04 04:19] LABS: ALB/GLOB RATIO 1.1 (1.0-2.1)
[2016-11-04] MEDS: metroNIDAZOLE IV 500 mg/100 ml 100 ML IVPB SCH ×3 (06:13→22:10)
--- NOTE | 2016-11-04 08:19 | CP.CCUPN ---
<Emmanuel Guerra - Last Filed: 11/04/16 21:41> CCU Subjective - Physician Review Subjective (Free Text): 11/03/16 18:49 Patient seen and examined at bedside in no acute distress. The patient is saturating well on room air. Patient is conversing well and admits to an episode of BM with noted blood (black tarry) yesterday night. Patient admits to intermittent dizzying spells intermittently through the day today. Patient admits to abdominal pain in the right and left lower quadrants. Colonoscopy scheduled for 12:30 pm today with inconclusive findings due to actively bleeding diverticuli. Patient later transfused 2 additional units of PRBC with 1 unit FFP with repeat bloodwork. Otherwise, patient denied headaches, nausea, vomiting, paresthesias, visual changes, urinary changes dyspnea, palpitations, or chest pain a this time. 11/04/16 10:13 Pt seen and examined in no acute distress. Vitals stable overnight per nursing. patient received 2 units of PRBC and 1 unit FFP overnight. Patient did not have any events of hematochezia overnight but have one event early this morning per nursing. Patient will receive another 1 unit PRBC this morning. Patient to have colonoscopy per GI. At this point patient denies subjective fevers or chills, headaches, nausea, vomiting, paresthesias, chest pain, palpitations at this time. CCU Objective - Vital Signs / Intake & Output Vital Signs (Last 4 hours): Vital Signs Pulse Resp BP Pulse Ox 11/04/16 05:46 89 22 115/53 L 93 L 11/04/16 04:46 95 H 12 127/56 L Intake and Output (Last 8hrs): Intake & Output 11/03/16 11/04/16 11/04/16 22:59 06:59 14:59 Intake Total 2024 1000 Output Total 312 310 Balance 1713 690 Weight 227 lb 6 oz Intake: Intake, IV Amount 700 700 Left Antecubital 100 100 Right Forearm 600 600 Blood Product 1300 300 Apheresis Rbc Cp2d As3 Lr 325 1st Unit [id number] Apheresis Rbc Cp2d As3 Lr 325 2nd Unit [id number] Other 25 Apheresis Rbc Cp2d As3 Lr 25 1st Unit [id number] Output: Urine 310 310 Urethral (Jones) 310 310 Emesis 2 - Physical Exam Head: Positive for: Atraumatic, Normocephalic Pupils: Positive for: PERRL Extroacular Muscles: Positive for: EOMI Ears: Positive for: Normal Mouth: Positive for: Moist Mucous Membranes Nose (External): Positive for: Atraumatic Nose (Internal): Positive for: Normal Inspection Neck: Positive for: Normal Range of Motion Respiratory/Chest: Positive for: Clear to Auscultation. Negative for: Wheezes Cardiovascular: Positive for: Normal S1, S2 Abdomen: Positive for: Distention, Normal Bowel Sounds Back: Positive for: Normal Inspection Lower Extremity: Positive for: Normal ROM Neurological: Positive for: CN II-XII Intact, Speech Normal Skin: Positive for: Warm, Dry Psychiatric: Positive for: Alert, Oriented x 3, Anxious - Medications Active Medications: Active Medications Generic Name Dose Route Start Last Admin Trade Name Freq PRN Reason Stop Dose Admin Ceftriaxone Sodium 1 gm/ 100 mls @ 100 mls/hr 11/01/16 12:00 11/04/16 00:00 Sodium Chloride IVPB 100 mls/hr Q12H ANA Administration Metronidazole 100 mls @ 100 mls/hr 11/02/16 21:00 11/04/16 06:13 Flagyl IVPB 100 mls/hr Q8 ANA Administration Lactated Ringer's 1,000 mls @ 75 mls/hr 11/02/16 22:22 11/04/16 03:35 Lactated Ringer's IV 75 mls/hr .[id number] ANA Administration Metoclopramide HCl 5 mg 11/02/16 16:30 11/03/16 22:24 Reglan IVP 5 mg ACHS ANA Administration Pantoprazole Sodium 40 mg 11/02/16 07:30 11/03/16 20:19 Protonix Inj IVP 40 mg Q12H ANA Administration - Patient Studies Lab Studies: Microbiology Studies 11/02/16 Unknown MRSA Culture (Admit) - Final Naris MRSA NOT DETECTED 11/01/16 11:30 Urine Culture - Final Urine No Growth (<1,000 CFU/ML) 11/01/16 Unknown Stool Culture - Final Stool NO SALMONELLA, SHIGELLA OR CAMPYLOBACTER ISOLATED. Lab Studies 11/04/16 11/03/16 11/03/16 Range/Units 03:45 17:40 14:47 WBC 12.9 H 13.4 H 12.2 H (4.8-10.8) K/uL RBC 3.21 L 2.96 L 3.36 L (4.40-5.90) Mil/uL Hgb 9.4 L 8.8 L 10.2 L (12.0-18.0) g/dL Hct 28.2 L 25.9 L 29.5 L (35.0-51.0) % MCV 87.8 87.5 87.9 (80.0-94.0) fL MCH 29.4 29.6 30.2 (27.0-31.0) pg MCHC 33.5 33.9 34.4 (33.0-37.0) g/dL RDW 14.0 13.9 14.1 (11.5-14.5) % Plt Count 131 150 134 (130-400) K/uL MPV 9.1 8.6 8.7 (7.2-11.7) fL Neut % (Auto) 78.3 H (50.0-75.0) % Lymph % (Auto) 10.7 L (20.0-40.0) % Sumter % (Auto) 7.4 (0.0-10.0) % Eos % (Auto) 3.3 (0.0-4.0) % Baso % (Auto) 0.3 (0.0-2.0) % Neut # 10.1 H (1.8-7.0) K/uL Lymph # 1.4 (1.0-4.3) K/uL Sumter # 1.0 H (0.0-0.8) K/uL Eos # 0.4 (0.0-0.7) K/uL Baso # 0.0 (0.0-0.2) K/uL PT 14.4 H (9.7-12.2) SECONDS INR 1.3 APTT 28 (21-34) SECONDS Sodium 136 (132-148) mmol/L Potassium 3.7 (3.6-5.2) mmol/L Chloride 103 (98-107) mmol/L Carbon Dioxide 25 (22-30) mmol/L Anion Gap 13 (10-20) BUN 21 H (9-20) mg/dL Creatinine 1.0 (0.8-1.5) MG/DL Est GFR ( Amer) > 60 Est GFR (Non-Af Amer) > 60 Random Glucose 101 (75-110) mg/dL Calcium 7.1 L (8.6-10.4) mg/dl Phosphorus 3.1 (2.5-4.5) mg/dL Magnesium 1.7 (1.6-2.3) mg/dL Total Bilirubin 2.5 H (0.2-1.3) mg/dL AST 24 (17-59) U/L ALT 33 (21-72) U/L Alkaline Phosphatase 45 (38-126) U/L Total Protein 4.9 L (6.3-8.3) g/dL Albumin 2.6 L (3.5-5.0) g/dL Globulin 2.3 (2.2-3.9) gm/dL Albumin/Globulin Ratio 1.1 (1.0-2.1) Blood Type Antibody Screen 11/03/16 11/02/16 Range/Units 10:38 15:08 WBC 11.3 H (4.8-10.8) K/uL RBC 3.26 L (4.40-5.90) Mil/uL Hgb 9.7 L (12.0-18.0) g/dL Hct 28.4 L (35.0-51.0) % MCV 87.3 (80.0-94.0) fL MCH 29.9 (27.0-31.0) pg MCHC 34.3 (33.0-37.0) g/dL RDW 14.0 (11.5-14.5) % Plt Count 136 (130-400) K/uL MPV 8.8 (7.2-11.7) fL Neut % (Auto) (50.0-75.0) % Lymph % (Auto) (20.0-40.0) % Sumter % (Auto) (0.0-10.0) % Eos % (Auto) (0.0-4.0) % Baso % (Auto) (0.0-2.0) % Neut # (1.8-7.0) K/uL Lymph # (1.0-4.3) K/uL Sumter # (0.0-0.8) K/uL Eos # (0.0-0.7) K/uL Baso # (0.0-0.2) K/uL PT (9.7-12.2) SECONDS INR APTT (21-34) SECONDS Sodium (132-148) mmol/L Potassium (3.6-5.2) mmol/L Chloride (98-107) mmol/L Carbon Dioxide (22-30) mmol/L Anion Gap (10-20) BUN (9-20) mg/dL Creatinine (0.8-1.5) MG/DL Est GFR ( Amer) Est GFR (Non-Af Amer) Random Glucose (75-110) mg/dL Calcium (8.6-10.4) mg/dl Phosphorus (2.5-4.5) mg/dL Magnesium (1.6-2.3) mg/dL Total Bilirubin (0.2-1.3) mg/dL AST (17-59) U/L ALT (21-72) U/L Alkaline Phosphatase (38-126) U/L Total Protein (6.3-8.3) g/dL Albumin (3.5-5.0) g/dL Globulin (2.2-3.9) gm/dL Albumin/Globulin Ratio (1.0-2.1) Blood Type O POSITIVE Antibody Screen Negative Laboratory Results - last 24 hr 11/02/16 11/03/16 11/03/16 15:08 10:38 14:47 WBC 11.3 H 12.2 H RBC 3.26 L 3.36 L Hgb 9.7 L 10.2 L Hct 28.4 L 29.5 L MCV 87.3 87.9 MCH 29.9 30.2 MCHC 34.3 34.4 RDW 14.0 14.1 Plt Count 136 134 MPV 8.8 8.7 Neut % (Auto) Lymph % (Auto) Sumter % (Auto) Eos % (Auto) Baso % (Auto) Neut # Lymph # Sumter # Eos # Baso # PT INR APTT Sodium Potassium Chloride Carbon Dioxide Anion Gap BUN Creatinine Est GFR ( Amer) Est GFR (Non-Af Amer) Random Glucose Calcium Phosphorus Magnesium Total Bilirubin AST ALT Alkaline Phosphatase Total Protein Albumin Globulin Albumin/Globulin Ratio Blood Type O POSITIVE Antibody Screen Negative 11/03/16 11/04/16 17:40 03:45 WBC 13.4 H 12.9 H RBC 2.96 L 3.21 L Hgb 8.8 L 9.4 L Hct 25.9 L 28.2 L MCV 87.5 87.8 MCH 29.6 29.4 MCHC 33.9 33.5 RDW 13.9 14.0 Plt Count 150 131 MPV 8.6 9.1 Neut % (Auto) 78.3 H Lymph % (Auto) 10.7 L Sumter % (Auto) 7.4 Eos % (Auto) 3.3 Baso % (Auto) 0.3 Neut # 10.1 H Lymph # 1.4 Sumter # 1.0 H Eos # 0.4 Baso # 0.0 PT 14.4 H INR 1.3 APTT 28 Sodium 136 Potassium 3.7 Chloride 103 Carbon Dioxide 25 Anion Gap 13 BUN 21 H Creatinine 1.0 Est GFR ( Amer) > 60 Est GFR (Non-Af Amer) > 60 Random Glucose 101 Calcium 7.1 L Phosphorus 3.1 Magnesium 1.7 Total Bilirubin 2.5 H AST 24 ALT 33 Alkaline Phosphatase 45 Total Protein 4.9 L Albumin 2.6 L Globulin 2.3 Albumin/Globulin Ratio 1.1 Blood Type Antibody Screen EKG/Cardiology Studies: Cardiology / EKG Studies 11/04/16 04:49 EKG [ELECTROCARDIOGRAM] Stat Comment: Mode Of Transportation: PORTABLE Reason For Exam: Chest tightness Review of Systems - Review of Systems Review of Systems: stated in subjective Critical Care Progress Note - Nutrition Nutrition: Nutrition Category Date Time Status NPO Diet [DIET] Diets 11/02/16 Dinner Active Assessment/Plan - Assessment and Plan (Free Text) Assessment: Assessment: 86 year old male presents with a past medical history of CAD s/p CABG in 1992, HTN, COPD, venous insufficiency and diverticulosis, and constipation, who presented to the ED with complaints of dizziness and low blood pressure x2 days. Patient completed an EGD, and had worsening symptoms of GI bleed along with a drop of Hemoglobin 9.9 to 9.1. Patient was admitted to the ICU for close monitoring and given three transfusions of PRBC and 1 unit of FFP. Patient is NPO. Colonoscopy aborted today after actively bleeding during procedure. Patient transfused another 2 units PRBC and 1 unit FFP. Considerations for mesenteric angiography showed no evidence of actively bleeding SMA or ÁNGELA. Selective catheterization of ÁNGELA showed no bleed. Patient transfused another 2 unit PRBCs and FFP today. Plan: Neuro: Monitor for changes in mental status, alertness Cardio: Pt has no angina or evidence of acute ischemic syndrome Patient does not have junctional rhythm. Patient has first degree AV block. This is no way to related to fatigue and dizziness. 11/01/16 Echo: normal LV systolic function. EF >70%. Mild valvular aortic stenosis. No mitral valve regurgitation, mild tricuspid regurgitation, mild- moderate pulmonary hypertension, no pulmonic valvular regurgitation. 10/07/14 Echo: LV mild dilating, normal LV systolic function, normal LV segmental wall motion, increased LA Pressure, left LA mild-moderately dilated, normal RV systolic function, calcified aortic valve. Pulmonary: Maintain O2 Sat >92% Imagin/15 CXR: mild venous congestion. Mild patchy bibasilar increased markings 11/01 CXR: Biapical pleural thickening with upper lobe granulomatous changes. Diffuse chronic increased interstitial lung markings with bild patchy left basilar airspace opacities. Endo: Maintain euglycemia GI: Monitor Bowel movements Monitor GI bleed - H and H Q4 until stabilized. Three units of PRBC transfused with 1 unit FFP yesterday. 2 units PRBC and one FFp today. CBC after 4 hrs. Metoclopramide 5 mg IVP ACHS ANA Ducolax 10 mg PO once Report: 11/02 - Bleeding scan site of bleeding is in the sigmoid colon Endoscopy report hiatal hernia, erosions and erythema found in gastric antrum , biopsies taken for H.pylori testing. Imagin/16 Colonoscopy: Estimated blood loss 20 cc. Post op diagnosis: hemorrhoids and active bleeding diverticulosis. Retained old blood and blood clots.. Procedure had to be stopped due to patient actively bleeding- repeat to be scheduled at a later time. Unlikely that patient can tolerate another procedure until this resolves Interventional Radiology did not find actively bleeding vessels. F/U with surgery recommendations if at all once patient's bleeding can be controlled.- transfused 2 untis PRBC and 1 unit FFP 18:00 11/03/16 : I/Os 1200/1450/-250 Monitor I/Os Jones inserted Maintain Jones Care Heme: H&H transfused 2 units PRBC and 1 unit FFP late afternoon 11/03 Hemoglobin: 8.7 at 10 am. repeat CBC post transfusion Daily CBC Renal: Monitor I/Os Lactated Ringer's 1000 cc @ 75 cc/hr IV [id number] ANA MSK: PT/OT evaluation Ergocalciferol 1 cap PO QWK ANA Ascorbic Acid 500 mg PO daily ID: Positive stool leukocytes Daily CBCs Ceftriaxone 1 gm 100cc/hr Q12H ANA Flagyl 100 cc @ 100 cc/hr IVPB Q8 ANA Prophylaxis: DVT: Contraindications for VTE given active bleeding status GI: Pantoprazole 40 mg IVP Q12H <Cirilo Babb - Last Filed: 11/11/16 00:21> CCU Objective - Vital Signs / Intake & Output Intake and Output (Last 8hrs): Intake & Output 11/10/16 11/10/16 11/11/16 14:59 22:59 06:59 Intake Total 120 Output Total 550 Balance -430 Intake: Oral 120 Output: Urine 550 Urine, Voided 550 Other: # Bowel Movements 0 - Patient Studies Lab Studies: Lab Studies 11/10/16 Range/Units 07:57 WBC 8.6 (4.8-10.8) K/uL RBC 3.50 L (4.40-5.90) Mil/uL Hgb 10.7 L (12.0-18.0) g/dL Hct 31.5 L (35.0-51.0) % MCV 90.0 (80.0-94.0) fL MCH 30.5 (27.0-31.0) pg MCHC 33.9 (33.0-37.0) g/dL RDW 15.8 H (11.5-14.5) % Plt Count 226 (130-400) K/uL MPV 9.0 (7.2-11.7) fL Neut % (Auto) 70.2 (50.0-75.0) % Lymph % (Auto) 12.2 L (20.0-40.0) % Sumter % (Auto) 12.3 H (0.0-10.0) % Eos % (Auto) 4.6 H (0.0-4.0) % Baso % (Auto) 0.7 (0.0-2.0) % Neut # 6.0 (1.8-7.0) K/uL Lymph # 1.0 (1.0-4.3) K/uL Sumter # 1.1 H (0.0-0.8) K/uL Eos # 0.4 (0.0-0.7) K/uL Baso # 0.1 (0.0-0.2) K/uL PT 15.4 H (9.7-12.2) SECONDS INR 1.4 APTT 34 (21-34) SECONDS Sodium 139 (132-148) mmol/L Potassium 3.8 (3.6-5.2) mmol/L Chloride 101 (98-107) mmol/L Carbon Dioxide 30 (22-30) mmol/L Anion Gap 11 (10-20) BUN 12 (9-20) mg/dL Creatinine 1.0 (0.8-1.5) MG/DL Est GFR ( Amer) > 60 Est GFR (Non-Af Amer) > 60 Random Glucose 101 (75-110) mg/dL Calcium 7.8 L (8.6-10.4) mg/dl Phosphorus 3.3 (2.5-4.5) mg/dL Magnesium 1.9 (1.6-2.3) mg/dL Total Bilirubin 0.8 (0.2-1.3) mg/dL AST 26 (17-59) U/L ALT 33 (21-72) U/L Alkaline Phosphatase 43 (38-126) U/L Total Protein 5.3 L (6.3-8.3) g/dL Albumin 2.5 L (3.5-5.0) g/dL Globulin 2.8 (2.2-3.9) gm/dL Albumin/Globulin Ratio 0.9 L (1.0-2.1) Laboratory Results - last 24 hr 11/10/16 07:57 WBC 8.6 RBC 3.50 L Hgb 10.7 L Hct 31.5 L MCV 90.0 MCH 30.5 MCHC 33.9 RDW 15.8 H Plt Count 226 MPV 9.0 Neut % (Auto) 70.2 Lymph % (Auto) 12.2 L Sumter % (Auto) 12.3 H Eos % (Auto) 4.6 H Baso % (Auto) 0.7 Neut # 6.0 Lymph # 1.0 Sumter # 1.1 H Eos # 0.4 Baso # 0.1 PT 15.4 H INR 1.4 APTT 34 Sodium 139 Potassium 3.8 Chloride 101 Carbon Dioxide 30 Anion Gap 11 BUN 12 Creatinine 1.0 Est GFR ( Amer) > 60 Est GFR (Non-Af Amer) > 60 Random Glucose 101 Calcium 7.8 L Phosphorus 3.3 Magnesium 1.9 Total Bilirubin 0.8 AST 26 ALT 33 Alkaline Phosphatase 43 Total Protein 5.3 L Albumin 2.5 L Globulin 2.8 Albumin/Globulin Ratio 0.9 L Critical Care Progress Note - Nutrition Nutrition: Nutrition Category Date Time Status Soft [Dysphagia/Modified Consistency Diet] [DIET] Diets 11/10/16 Breakfast Active Attending/Attestation - Attestation I have personally seen and examined this patient.: Yes I have fully participated in the care of the patient.: Yes I have reviewed all pertinent clinical information: Yes Notes (Text): Today: Friday, November 04, 2016 The Patient was seen and examined at the bedside, Medical records reviewed, all clinical/lab/hemodynamic/radiographic data were reviewed and management issues were discussed and formulated, Events reviewed Pain issues, skin care, head of the bed elevation, glycemic control were addressed Agree with above treatment plans as transcribed in Dr. Guerra note
--- NOTE | 2016-11-04 08:28 | CP.PCM.PN ---
Subjective - Date & Time of Evaluation Date of Evaluation: 11/04/16 Time of Evaluation: 08:25 - Subjective Subjective: General surgery - Dr. Allan Pt S&E. Yesterday pt underwent colonoscopy and was found to have diffuse diverticulosis with active bleeding. Pt continued to have bloody BM after the procedure. He states his last bloody stool was at 3AM. Pt received 1u PRBC and 1 ffp overnight which brought his Hgb from 8.8 last night to 9.4 this morning. Pt deneis any abdominal pain or complaints, he is thirsty. Objective - Vital Signs/Intake and Output Vital Signs (last 24 hours): Temp Pulse Resp BP Pulse Ox 98.7 F 89 22 115/53 L 93 L 11/04/16 04:00 11/04/16 05:46 11/04/16 05:46 11/04/16 05:46 11/04/16 05:46 Intake and Output: 11/04/16 11/04/16 06:59 18:59 Intake Total 2700 Output Total 430 Balance 2270 - Medications Medications: Current Medications Ceftriaxone Sodium 1 gm/ (Sodium Chloride) 100 mls @ 100 mls/hr IVPB Q12H ANA Last Admin: 11/04/16 00:00 Dose: 100 mls/hr Metronidazole (Flagyl) 100 mls @ 100 mls/hr IVPB Q8 ANA Last Admin: 11/04/16 06:13 Dose: 100 mls/hr Lactated Ringer's (Lactated Ringer's) 1,000 mls @ 75 mls/hr IV .[id number] ANA Last Admin: 11/04/16 03:35 Dose: 75 mls/hr Metoclopramide HCl (Reglan) 5 mg IVP ACHS ANA Last Admin: 11/04/16 08:17 Dose: 5 mg Pantoprazole Sodium (Protonix Inj) 40 mg IVP Q12H ANA Last Admin: 11/04/16 08:16 Dose: 40 mg - Labs Labs: 11/04/16 03:45 11/04/16 03:45 PT 14.4 SECONDS (9.7-12.2) H 11/03/16 17:40 INR 1.3 11/03/16 17:40 APTT 28 SECONDS (21-34) 11/03/16 17:40 - Constitutional Appears: No Acute Distress - Head Exam Head Exam: ATRAUMATIC, NORMOCEPHALIC - Respiratory Exam Respiratory Exam: NORMAL BREATHING PATTERN. absent: Respiratory Distress - GI/Abdominal Exam GI & Abdominal Exam: Soft. absent: Distended, Tenderness - Neurological Exam Neurological Exam: Alert, Oriented x3 - Psychiatric Exam Psychiatric exam: Normal Affect, Normal Mood - Skin Skin Exam: Dry, Intact, Normal Color Assessment and Plan - Assessment and Plan (Free Text) Assessment: 86 M w/ acute LGIB Plan: -H&H q4h, transfuse prn -Monitor for further bloody stool -IR consulted for poss. embolization -If pt. continues to bleed may need surgery -KEVEN King PGY2
--- NOTE | 2016-11-04 08:33 | VASCLAB ---
PROCEDURE: Lower Extremity Venous Duplex Exam. HISTORY: le swelling worse on the R PRIORS: None. TECHNIQUE: Bilateral common femoral, femoral, popliteal and posterior tibial, peroneal and great saphenous veins were evaluated. Flow was assessed with color Doppler, compressibility, assessment of phasic flow and augmentation response. Report prepared by Chung Waters, AMY, RVT FINDINGS: RIGHT: 1. Common Femoral Vein: 1.1. Compressibility - Fully compressible: Thrombus - None : Flow - Phasic: Augmentation -Normal: Reflux - None. 2. Femoral Vein: 2.1. Compressibility - Fully compressible: Thrombus - None : Flow - Phasic: Augmentation -Normal: Reflux - None. 3. Popliteal Vein: 3.1. Compressibility - Fully compressible: Thrombus - None : Flow - Phasic: Augmentation -Normal: Reflux - None. 4. Posterior Tibial Vein: 4.1. Compressibility - Fully compressible: Thrombus - None: Flow - Phasic: Augmentation -Normal: Reflux - None. 5. Peroneal Vein: 5.1. Compressibility - Fully compressible: Thrombus - None: Flow - Phasic: Augmentation -Normal: Reflux - None. 6. Great Saphenous Vein: 6.1. Compressibility - Fully compressible: Thrombus - None: Flow - Phasic: Augmentation - Normal: Reflux - None. LEFT: 1. Common Femoral Vein: 1.1. Compressibility - Fully compressible: Thrombus - None: Flow - Phasic: Augmentation -Normal: Reflux - None. 2. Femoral Vein: 2.1. Compressibility - Fully compressible: Thrombus - None: Flow - Phasic: Augmentation -Normal: Reflux - None. 3. Popliteal Vein: 3.1. Compressibility - Fully compressible: Thrombus - None : Flow - Phasic: Augmentation -Normal: Reflux - None. 4. Posterior Tibial Vein: 4.1. Compressibility - Fully compressible: Thrombus - None: Flow - Phasic: Augmentation -Normal: Reflux - None. 5. Peroneal Vein: 5.1. Compressibility - Fully compressible: Thrombus - None: Flow - Phasic: Augmentation -Normal: Reflux - None. 6. Great Saphenous Vein: 6.1. Compressibility - : Thrombus - : Flow - : Augmentation - : Reflux - . OTHER FINDINGS: Right: None significant. Left: The left greater saphenous vein has been previously removed. IMPRESSION: Right: No evidence of deep or superficial vein thrombosis of the right lower extremity. Normal valve function noted of the right side. Left: No evidence of deep or superficial vein thrombosis of the left lower extremity. Normal valve function noted of the left side.
[2016-11-04 10:48] LABS: BASO # 0.1 K/uL (0.0-0.2); BASO % 0.6 % (0.0-2.0); EOS # 0.4 K/uL (0.0-0.7); EOS % 3.7 % (0.0-4.0); HEMATOCRIT 25.6 % (35.0-51.0); LYMPH % 16.8 % (20.0-40.0); MEAN CELL VOLUME 87.1 fL (80.0-94.0); MEAN CORPUSCULAR HEMOGLOBIN 29.5 pg (27.0-31.0); MEAN CORPUSCULAR HGB CONC 33.9 g/dL (33.0-37.0); MONO # 1.3 K/uL (0.0-0.8); MONO % 11.1 % (0.0-10.0); NRBC % 0.1 % (0.0-2.0); WHITE BLOOD COUNT 11.9 K/uL (4.8-10.8)
--- NOTE | 2016-11-04 12:39 | PN ---
DATE: 11/04/2016 LOCATION: ICU 8. This is an 86-year-old male, seen and examined in rounds. Case discussed at length this morning with the food safety officer as well as the registered nurse surgical services on the case, Dr. Allan, patient was scheduled fo r repeat colonoscopy to identify the actual site of his bleeding as he had more than 1 bloody bowel m ovement early this morning, none yesterday. I was informed that the patient was scheduled to go for angiography by the invasive radiology staff f or possible mobilization. At this point, I canceled my colonoscopy as the medical staff preferred to go with the invasive radiology recommendation at this point. The entire chart is reviewed, includin g but not limited to, the most recent lab and radiology study results, current and previous medicatio n list, current and previous medical events, allergy to medication list. Most recent lab results showed white blood cells elevated to 11.9 with low hemoglobin 8.7, low hemato crit 25.6 despite blood transfusion with so far normal platelet count with mild increased PT to 14.4 and BUN mildly elevated to 21, but normal creatinine with low calcium 7.1, low total protein 4.9, low albumin 2.6. PHYSICAL EXAMINATION: GENERAL: An 86-year-old male, awake, alert, oriented. VITAL SIGNS: Afebrile with pulse of 82, respiratory rate 20-22 with blood pressure 96/46. HEENT: Showed pale, dry oral mucoid membrane. Nonicteric sclerae. LUNGS: Few scattered crepitation, decreased air entry at bases. HEART: Positive S1 and S2. ABDOMEN: Soft with mild distention and slight generalized tenderness. Bowel sounds are hyperactive. No mass or organomegaly. No rebound tenderness or guarding. RECTAL: Positive tone, guaiac positive stool with fresh and old trace of blood. EXTREMITIES: Without significant edema, clubbing or cyanosis. NEUROLOGIC: No reported new neurological deficits, sensory or motor. IMPRESSION: 1. Gastrointestinal bleeding, most likely secondary to bleeding diverticulosis. 2. Anemia, secondary to above. 3. Peptic ulcer disease. 4. Known history of hypertension, coronary artery disease, chronic lower back pain syndrome and stat us post coronary artery bypass graft. SUGGESTION: 1. Continue current management. 2. Follow up on the invasive radiology procedure outcome. 3. Blood transfusion to keep hemoglobin around 10 gram percent. Seth Crouch MD cc: 14 TT: 11/04/2016 12:39:16 Confirmation # [id number] Dictation # [id number] en
--- NOTE | 2016-11-04 14:06 | PN ---
DATE: 11/02/2016 The patient was seen on the evening of the because he had recurrent bleeding. We had ordered a type and cross of 4 units of packed cells, 2 units of fresh frozen plasma to be available should he r ebleed. I was alerted patient rebled, so we went to examine him. He looked alert, oriented, not in any distress and comfortable. We have discussed the situation with the senior air director, who at that time was Dr. Albarran. We agree with the transfusions of 2 packed red cells and a unit of fresh frozen plasma and monitor H and H q. 4 hours. When patient was seen, H and H was 8.4 or 8.1, do not recall well, and it subsequently improved to 10.4 by the next day. So, surgery was not entertained yet. We continued monitoring the patient. He subsequently had a colonoscopy on the . The patient had a rebleed on the afternoon of the . Again, more blood was given and the nuclear scan had shown bl eeding in the sigmoid area. However, the laryngologist wanted to do further evaluation for othe r source of bleeding and he wanted to do another colonoscopy on the and I advised to go against that and if anything, have the interventional radiologist available should the patient bleed so they could to intraoperative CT angio with possible embolization of the bleeding site. The same was discu ssed with the radiologist and the senior air director present. PLAN: Again, as of today, is to replenish the blood and fresh frozen plasma, and keep monitoring. S hould he rebleed, have the interventional radiologist involved and surgery is going to be the last re source. Hopefully, he will not have another recurrence at this point. Gus Allan MD cc: 240 TT: 11/04/2016 14:05:11 Confirmation # [id number] Dictation # [id number] en
[2016-11-04] MEDS ORDERED: Iodixanol 320 mg/ml 150 ml Bottle IV ONE ×2 (16:12→16:54)
[2016-11-04] MEDS ORDERED: Lidocaine 2% Inj (20ml) ONE (16:29)
--- NOTE | 2016-11-04 17:13 | PCM.SURG1 ---
Surgeon's Initial Post Op Note - Surgeon's Notes Surgeon: Bonifacio Larson MD Pressure Tank Operator: NONE Type of Anesthesia: Local Pre-Operative Diagnosis: GI bleed Operative Findings: Mesenteric angiogram showed no evidence of GI bleed SMA or ÁNGELA. Selective catherization of ÁNGELA showed no bleed. Post-Operative Diagnosis: GI Bleed Operation Performed: Mesenteric angiogram. Specimen/Specimens Removed: none Estimated Blood Loss: EBL {In ML}: 5 Blood Products Given: N/A Drains Used: No Drains Post-Op Condition: Poor Date of Surgery/Procedure: 11/04/16 Time of Surgery/Procedure: 17:10
[2016-11-05 00:23] LABS: BASO # 0.1 K/uL (0.0-0.2); BASO % 0.6 % (0.0-2.0); EOS # 0.3 K/uL (0.0-0.7); EOS % 2.5 % (0.0-4.0); HEMATOCRIT 20.3 % (35.0-51.0); LYMPH % 8.7 % (20.0-40.0); MEAN CELL VOLUME 89.3 fL (80.0-94.0); MEAN CORPUSCULAR HEMOGLOBIN 29.8 pg (27.0-31.0); MEAN CORPUSCULAR HGB CONC 33.3 g/dL (33.0-37.0); MEAN PLATELET VOLUME 8.8 fL (7.2-11.7); MONO # 1.5 K/uL (0.0-0.8); MONO % 12.4 % (0.0-10.0); PLATELET COUNT 131 K/uL (130-400); RED CELL DISTRIBUTION WIDTH 14.3 % (11.5-14.5); WHITE BLOOD COUNT 11.9 K/uL (4.8-10.8)
[2016-11-05] MEDS: Lactated Ringer's 1,000 ML IV SCH ×2 (04:30→18:01)
[2016-11-05 04:57] LABS: EOSINOPHIL 1 % (0-4); LARGE PLATELETS PRESENT; NEUTROPHIL 83 % (50-75); REACTIVE LYMPHOCYTES 4 % (0-0); TOTAL CELLS COUNTED 100
[2016-11-05] MEDS: metroNIDAZOLE IV 500 mg/100 ml 100 ML IVPB SCH ×3 (05:49→21:20)
[2016-11-05 07:08] LABS: BASO # 0.1 K/uL (0.0-0.2); BASO % 0.6 % (0.0-2.0); EOS # 0.5 K/uL (0.0-0.7); EOS % 4.4 % (0.0-4.0); HEMATOCRIT 23.2 % (35.0-51.0); LYMPH # 1.5 K/uL (1.0-4.3); LYMPH % 13.8 % (20.0-40.0); MEAN CELL VOLUME 88.6 fL (80.0-94.0); MEAN CORPUSCULAR HEMOGLOBIN 30.4 pg (27.0-31.0); MEAN CORPUSCULAR HGB CONC 34.3 g/dL (33.0-37.0); MEAN PLATELET VOLUME 8.9 fL (7.2-11.7); MONO # 1.5 K/uL (0.0-0.8); MONO % 14.2 % (0.0-10.0); RED CELL DISTRIBUTION WIDTH 14.1 % (11.5-14.5); WHITE BLOOD COUNT 10.6 K/uL (4.8-10.8)
[2016-11-05 07:24] LABS: CHLORIDE 104 mmol/L (98-107); POTASSIUM 3.5 mmol/L (3.6-5.2); SODIUM 139 mmol/L (132-148)
[2016-11-05 07:26] LABS: AST/SGOT 36 U/L (17-59); CARBON DIOXIDE 21 mmol/L (22-30); GFR AFRICAN-AMERICAN > 60
[2016-11-05 07:27] LABS: ALB/GLOB RATIO 1.2 (1.0-2.1); ALKALINE PHOSPHATASE 46 U/L (38-126); ALT/SGPT 25 U/L (21-72); BLOOD UREA NITROGEN 20 mg/dL (9-20); CALCIUM 7.3 mg/dl (8.6-10.4); GLUCOSE,RANDOM 94 mg/dL (75-110); PHOSPHOROUS 3.5 mg/dL (2.5-4.5); TOTAL PROTEIN 4.8 g/dL (6.3-8.3)
[2016-11-05 07:28] LABS: MAGNESIUM 1.8 mg/dL (1.6-2.3)
--- NOTE | 2016-11-05 08:17 | CP.PCM.PN ---
Subjective - Date & Time of Evaluation Date of Evaluation: 11/05/16 Time of Evaluation: 07:35 - Subjective Subjective: Gen Surg: Dr. Allan Patient seen and examined at bedside this AM. As per ICU nursing staff patient had hypotensive episodes overnight. Patient's Hgb was 6.8, and he was transfused 2 PRBCs and and 1FFP. According to nursing staff patient had about 300ccs of melanotic stool early this morning. At time of examination patient was hemodynamically stable, alert and aware, and asking questions. Patient reported feeling slightly dizzy and tired. Pt denies any abdominal pain. Objective - Vital Signs/Intake and Output Vital Signs (last 24 hours): Temp Pulse Resp BP Pulse Ox 98.6 F 87 34 H 119/58 L 96 11/05/16 04:30 11/05/16 06:02 11/05/16 06:02 11/05/16 06:02 11/05/16 06:02 Intake and Output: 11/05/16 11/05/16 06:59 18:59 Intake Total 2133 Output Total 480 Balance 1653 - Medications Medications: Current Medications Ceftriaxone Sodium 1 gm/ (Sodium Chloride) 100 mls @ 100 mls/hr IVPB Q12H ANA Last Admin: 11/05/16 00:10 Dose: 100 mls/hr Metronidazole (Flagyl) 100 mls @ 100 mls/hr IVPB Q8 ANA Last Admin: 11/05/16 05:49 Dose: 100 mls/hr Lactated Ringer's (Lactated Ringer's) 1,000 mls @ 75 mls/hr IV .[id number] ANA Last Admin: 11/05/16 04:30 Dose: 75 mls/hr Metoclopramide HCl (Reglan) 5 mg IVP ACHS ANA Last Admin: 11/04/16 22:09 Dose: 5 mg Pantoprazole Sodium (Protonix Inj) 40 mg IVP Q12H ANA Last Admin: 11/04/16 22:09 Dose: 40 mg - Labs Labs: 11/05/16 07:05 11/05/16 07:05 PT 14.4 SECONDS (9.7-12.2) H 11/03/16 17:40 INR 1.3 11/03/16 17:40 APTT 28 SECONDS (21-34) 11/03/16 17:40 - Constitutional Appears: No Acute Distress - Head Exam Head Exam: NORMOCEPHALIC - Eye Exam Eye Exam: Normal appearance - Respiratory Exam Respiratory Exam: NORMAL BREATHING PATTERN. absent: Wheezes - Cardiovascular Exam Cardiovascular Exam: +S1, +S2 - GI/Abdominal Exam GI & Abdominal Exam: Distended, Soft - Neurological Exam Neurological Exam: Alert, Awake, Oriented x3 - Psychiatric Exam Psychiatric exam: Normal Mood - Skin Skin Exam: Dry, Intact, Warm Assessment and Plan - Assessment and Plan (Free Text) Assessment: 86 M w/ acute lower GI bleed -Monitor H&H , transfuse prn -Monitor bowel movements -? repeat colonoscopy -IR unable to identify any active bleeding on imaging -If pt. continues to bleed may require surgery once medically optimized -Further recs per Dr Allan
[2016-11-05] MEDS ORDERED: Potassium Chloride 10 mEq 100 ML IVPB ONE (09:30)
[2016-11-05] MEDS ORDERED: Iodixanol 320 mg/ml 150 ml Bottle IV ONE (12:12)
--- NOTE | 2016-11-05 12:56 | PN ---
DATE: 11/05/2016 LOCATION: ICU 8. I was called by the ICU staff and solar electric installer for GI followup as the patient has recurrent rectal ble eding. By the time I came to see the patient there was excessive amount of rectal bleeding for which the patient to be taken to the x-ray for stat angio CAT scan with possible immobilization, could be done by the invasive radiology staff which it was scheduled yesterday for which they canceled repeat colonoscopy, but it was not done yesterday for unclear reason to me. However, the patient appears to be more awake and alert with a complaint of generalized weakness. LABORATORY DATA: Most recent lab results showed subsequent drop of hemoglobin to 8.0 with hematocrit 23.2 post-blood transfusion with thrombocytopenia of 122 and AST is negative with reported increased troponin level was 0.998 and low potassium 3.5, low CO2 content to 21 indicative of metabolic acidos is with low calcium 7.3 with increased total bilirubin to 2.0 with low albumin 2.6 and low total prot ein 4.8. PHYSICAL EXAMINATION: GENERAL: An 86-year-old male seen and examined with the solar electric installer in the intensive care unit. Dr. Jaramillo. VITAL SIGNS: Afebrile with pulse of 98, blood pressure 126/62 with respiratory rate 20-22. HEENT: Showed pale, dry oral mucoid membrane. Nonicteric sclerae. LUNGS: Few scattered crepitation, decreased air entry at bases. HEART: Positive S1 and S2. ABDOMEN: Soft. Bowel sounds are present but hyperactive with mild generalized distention and slight tenderness. No mass or organomegaly. RECTAL: Fresh and old blood and blood clot. EXTREMITIES: Lower extremities, mild edematous changes. No clubbing or cyanosis. IMPRESSION: 1. Active gastrointestinal bleeding, most likely secondary to bleeding diverticulosis. 2. Anemia secondary to above. 3. Coagulopathy, drug induced, gradually corrected. 4. Increased troponin level, most likely secondary to ischemic changes due to the patient's anemia a nd active gastrointestinal bleeding. 5. Metabolic acidosis secondary to above. 6. Hypoalbuminemia with malnutrition. 7. 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 8. Peptic ulcer disease by recent history. SUGGESTION: 1. Continue current management including angiographic CAT scan. 2. If above does not work then repeat colonoscopy with epinephrine irrigation and/or immediate surgi rehana interference should be kept in mind regardless ____ . 3. Further evaluation to follow, and the case discussed at length with the solar electric installer, case is to b e discussed with Dr. Allan. Seth Crouch MD cc: 14 TT: 11/05/2016 12:55:26 Confirmation # [id number] Dictation # [id number] jn
[2016-11-05 13:20] LABS: BASO # 0.1 K/uL (0.0-0.2); EOS # 0.4 K/uL (0.0-0.7); EOS % 3.5 % (0.0-4.0); HEMATOCRIT 24.9 % (35.0-51.0); LYMPH # 1.4 K/uL (1.0-4.3); LYMPH % 11.4 % (20.0-40.0); MEAN CELL VOLUME 87.2 fL (80.0-94.0); MEAN CORPUSCULAR HEMOGLOBIN 29.9 pg (27.0-31.0); MEAN CORPUSCULAR HGB CONC 34.3 g/dL (33.0-37.0); MEAN PLATELET VOLUME 8.9 fL (7.2-11.7); MONO # 1.6 K/uL (0.0-0.8); MONO % 13.4 % (0.0-10.0); NRBC % 0.1 % (0.0-2.0); RED CELL DISTRIBUTION WIDTH 14.7 % (11.5-14.5)
[2016-11-05] MEDS ORDERED: Midazolam 2 MG/2 ML VIAL IVP ONE (14:00)
--- NOTE | 2016-11-05 14:04 | CP.PCM.PN ---
Subjective - Date & Time of Evaluation Date of Evaluation: 11/05/16 Time of Evaluation: 18:08 - Subjective Subjective: no cp no sob went for cat scan angio unable to find bleeding vessel Objective - Vital Signs/Intake and Output Vital Signs (last 24 hours): Temp Pulse Resp BP Pulse Ox 98.8 F 78 22 139/76 93 L 11/05/16 12:56 11/05/16 12:56 11/05/16 12:56 11/05/16 12:56 11/05/16 12:37 Intake and Output: 11/05/16 11/05/16 06:59 18:59 Intake Total 2133 2955 Output Total 480 370 Balance 1653 2585 - Medications Medications: Current Medications Ceftriaxone Sodium 1 gm/ (Sodium Chloride) 100 mls @ 100 mls/hr IVPB Q12H [facility] Last Admin: 11/05/16 11:03 Dose: 100 mls/hr Metronidazole (Flagyl) 100 mls @ 100 mls/hr IVPB Q8 [facility] Last Admin: 11/05/16 05:49 Dose: 100 mls/hr Lactated Ringer's (Lactated Ringer's) 1,000 mls @ 75 mls/hr IV .[id number] [facility] Last Admin: 11/05/16 04:30 Dose: 75 mls/hr Metoclopramide HCl (Reglan) 5 mg IVP ACHS [facility] Last Admin: 11/05/16 10:58 Dose: 5 mg Pantoprazole Sodium (Protonix Inj) 40 mg IVP Q12H [facility] Last Admin: 11/05/16 08:55 Dose: 40 mg - Labs Labs: 11/05/16 13:15 11/05/16 07:05 PT 14.4 SECONDS (9.7-12.2) H 11/03/16 17:40 INR 1.3 11/03/16 17:40 APTT 28 SECONDS (21-34) 11/03/16 17:40 - Head Exam Head Exam: ATRAUMATIC - Eye Exam Additional comments: pallor - ENT Exam ENT Exam: Mucous Membranes Dry - Respiratory Exam Respiratory Exam: Clear to Ausculation Bilateral, NORMAL BREATHING PATTERN - Cardiovascular Exam Cardiovascular Exam: REGULAR RHYTHM, +S1, +S2 - GI/Abdominal Exam GI & Abdominal Exam: Soft, Normal Bowel Sounds. absent: Tenderness - Neurological Exam Neurological Exam: Alert, Awake, Oriented x3 Assessment and Plan - Assessment and Plan (Free Text) Assessment: Lower gi bleeding Diverticular in origin acute blood loss anemia due to GI bleeding s/p c scope still with active bleeding cont to monitor in icu h/h dropped last night with large Bright red blood bm post transfusion h/h improved now post 11 units IR could not find source of vessel that was bleeding likely just diverticuli is bleeding management per ICU/GI and Surgery
--- NOTE | 2016-11-05 14:04 | CP.PCM.PN ---
Subjective - Date & Time of Evaluation Date of Evaluation: 11/04/16 Time of Evaluation: 19:11 - Subjective Subjective: doing well hemodynamically still bleeding no cp no sob Objective - Vital Signs/Intake and Output Vital Signs (last 24 hours): Temp Pulse Resp BP Pulse Ox 98.8 F 78 22 139/76 93 L 11/05/16 12:56 11/05/16 12:56 11/05/16 12:56 11/05/16 12:56 11/05/16 12:37 Intake and Output: 11/05/16 11/05/16 06:59 18:59 Intake Total 2133 2955 Output Total 480 370 Balance 1653 2585 - Medications Medications: Current Medications Ceftriaxone Sodium 1 gm/ (Sodium Chloride) 100 mls @ 100 mls/hr IVPB Q12H [facility] Last Admin: 11/05/16 11:03 Dose: 100 mls/hr Metronidazole (Flagyl) 100 mls @ 100 mls/hr IVPB Q8 [facility] Last Admin: 11/05/16 05:49 Dose: 100 mls/hr Lactated Ringer's (Lactated Ringer's) 1,000 mls @ 75 mls/hr IV .[id number] [facility] Last Admin: 11/05/16 04:30 Dose: 75 mls/hr Metoclopramide HCl (Reglan) 5 mg IVP ACHS [facility] Last Admin: 11/05/16 10:58 Dose: 5 mg Pantoprazole Sodium (Protonix Inj) 40 mg IVP Q12H [facility] Last Admin: 11/05/16 08:55 Dose: 40 mg - Labs Labs: 11/05/16 13:15 11/05/16 07:05 PT 14.4 SECONDS (9.7-12.2) H 11/03/16 17:40 INR 1.3 11/03/16 17:40 APTT 28 SECONDS (21-34) 11/03/16 17:40 - Head Exam Head Exam: ATRAUMATIC - Eye Exam Additional comments: pallor - ENT Exam ENT Exam: Mucous Membranes Dry - Respiratory Exam Respiratory Exam: Clear to Ausculation Bilateral - Cardiovascular Exam Cardiovascular Exam: REGULAR RHYTHM, +S1, +S2 - GI/Abdominal Exam GI & Abdominal Exam: Soft, Normal Bowel Sounds. absent: Tenderness - Extremities Exam Extremities Exam: Normal Inspection - Back Exam Back Exam: NORMAL INSPECTION - Neurological Exam Neurological Exam: Alert, Awake, Oriented x3 Assessment and Plan - Assessment and Plan (Free Text) Assessment: Lower gi bleeding Diverticular in origin acute blood loss anemia due to GI bleeding s/p c scope still with active bleeding cont to monitor in icu h/h stable post transfusion management per ICU/GI and Surgery patient aware that surgery is an option and will consider
--- NOTE | 2016-11-05 15:26 | PCM.PROC ---
Procedures Attestation:: I certify that I have explained the specified Operation(s) or Procedure(s), risks, benefits and reasonable alternatives to the Patient and/or other person responsible. The opportunity was given to ask questions and all questions answered - Central Line Placement Right Internal Jugular Triple Lumen Catheter Aseptic technique was employed throughout the procedure: Hand Hygiene done prior to procedure, Full sterile barriers (mask, hair cover, sterile gown, sterile gloves), Full body sterile drape, Chloraprep Antiseptic: 30 second prep for IJ or SC sites CVP Time Out Performed: Yes Pt. Placed on Pulse Ox Monitor: Yes Central Line Prep: Chlorhexidine-Alcohol Combination Local Anesthesia Used: Lidocaine 1% Amount of Anesthesia Used (mls): 2 Ultrasound Used for Placement: Yes Central Line Lumen Inserted: triple (15) Central Line Length: 16 cm (15 cm) Post Procedure: Sutured in Place, Good Blood Return, All Ports Aspirated, Flushed, Capped, Sterile Dressing Applied Secured by: Suture Post procedure dressing: Chlorhexidine disc (Biopatch) Post Procedure X-Ray: Yes Patient Tolerated Procedure: Well, No Complications Immediate Complications: None
[2016-11-05 15:38] LABS: HEMATOCRIT 24.7 % (35.0-51.0); MEAN CELL VOLUME 86.9 fL (80.0-94.0); MEAN CORPUSCULAR HEMOGLOBIN 29.7 pg (27.0-31.0); MEAN CORPUSCULAR HGB CONC 34.2 g/dL (33.0-37.0); MEAN PLATELET VOLUME 8.7 fL (7.2-11.7); RED CELL DISTRIBUTION WIDTH 14.3 % (11.5-14.5); WHITE BLOOD COUNT 11.7 K/uL (4.8-10.8)
--- NOTE | 2016-11-05 16:06 | PN ---
DATE: 11/05/2016 This is an 86-year-old male who has had several bleeding episodes and blood transfusions, total transfusions over 9 units at this point. He has had colonoscopies. He also had nuclear scan which localized the bleeding in the sigmoid. He had additional CT angios to see any active bleeding, so that the radiologist could embolize the site of bleeding. Three such attempts were not synchronized adequately, so anytime the patient was up for CT angio, there was no active bleeding. However, he had another bleeding episode last evening with hypotensive period and at that point, hemoglobin was 6.8. Apparently, cardiac__ __ ischemia and the patient had developed troponins and he is being worked up for HI. The patient was seen by me in the process of doing a [id number] catheter and he was given Versed. Therefore, I could not speak to the patient. I evaluated the patient's status. However, according to the blood work, his troponins were elevated. His repeat H and H after transfusions was 8.6 and white count is 12,000. The last PT, PTT that was done a couple days ago and the INR at that point was 1.3. His albumin is 2.6 as of this a.m. with a total protein of 4.8. I discussed all this with pottery kiln builder, Dr. Jaramillo. Again, a CK-MB was 5.02 and total creatine kinase is 141. I will discuss him with Dr. Jaramillo and ____ to evaluate whether or not the trponin elevation is transient, now agreeing on the surgery, possible sigmoid resection or subtotal resection, but due to the fact the patient is cardiac-dangelo unstable, we elect to reevaluate the troponins, PT, PTT, INR and will consider surgery if ____ time the embolization and we will only be going according to the nuclear scan, which he needs most likely a sigmoid resection and this will be only if the troponin level is on the way down and the patient is medically cleared. If the troponin is still persistent , it is on its way up, they are going to manage the patient as they have been doing in the recent past. We will follow the patient, awaiting the results of the troponins, PT, PTT, INR and further workup. Gus Allan MD cc: 240 TT: 11/05/2016 16:05:40 Confirmation # [id number] Dictation # [id number] MTDD
[2016-11-05 16:26] LABS: INR 1.4
--- NOTE | 2016-11-05 16:36 | RAD ---
HISTORY: S/P Central Line Placement COMPARISON: Comparison chest 11/02/2016. Comparison also made with CTA of the abdomen and pelvis which also image both lung bases. FINDINGS: LUNGS: Bilateral effusions right larger than left. . Mild bibasilar atelectasis. Central pulmonary vasculature is slightly increased suggesting mild venous congestion In situ right IJ central venous line with tip in the SVC/brachiocephalic junction. PLEURA: No significant pleural effusion identified, no pneumothorax apparent. CARDIOVASCULAR: Heart size is borderline/ mildly enlarged. Sternotomy wires again noted. OSSEOUS STRUCTURES: No significant abnormalities. VISUALIZED UPPER ABDOMEN: Normal. OTHER FINDINGS: None. IMPRESSION: Bilateral effusions right larger than left. . Mild bibasilar atelectasis. Central pulmonary vasculature is slightly increased suggesting mild venous congestion
--- NOTE | 2016-11-05 17:12 | CP.CCUPN ---
CCU Subjective - Physician Review Events Since Last Encounter (Free Text): 11/05/16 17:09 Patient seen and examined in the intensive care unit. Case discussed with STAFF in the morning rounds Overnight patient transfused 2 units packed RBCs and FFP for bright red blood per rectum and became hypotensive Awake and responsive, hemodynamically stable Denies any abdominal or chest pain CCU Objective - Vital Signs / Intake & Output Vital Signs (Last 4 hours): Vital Signs Temp Pulse Resp BP 11/05/16 16:22 97.9 F 85 20 131/77 11/05/16 16:07 97.6 F 83 22 111/57 L 11/05/16 15:52 100.1 F H 88 22 131/77 Intake and Output (Last 8hrs): Intake & Output 11/05/16 11/05/16 11/05/16 06:59 14:59 22:59 Intake Total 1500 2955 0 Output Total 320 370 Balance 1180 2585 0 Weight 224 lb 5 oz Intake: Intake, IV Amount 800 2630 Left Antecubital 200 1300 Right Forearm 600 1330 Oral 0 0 Blood Product 650 325 0 Apheresis Rbc Cp2d As3 Lr 325 1st Unit [id number] Apheresis Rbc Cp2d As3 Lr 325 1st Unit [id number] Apheresis Rbc Cp2d As3 Lr 0 1st Unit [id number] Apheresis Rbc Cp2d As3 Lr 325 1st Unit [id number] Other 50 Apheresis Rbc Cp2d As3 Lr 50 1st Unit [id number] Output: Urine 320 270 Urethral (Jones) 320 270 Stool 100 Other: # Bowel Movements 1 - Physical Exam Head: Positive for: Atraumatic, Normocephalic Pupils: Positive for: PERRL Extroacular Muscles: Positive for: EOMI Ears: Positive for: Normal Mouth: Positive for: Moist Mucous Membranes Nose (External): Positive for: Atraumatic Nose (Internal): Positive for: Normal Inspection Neck: Positive for: Normal Range of Motion Respiratory/Chest: Positive for: Clear to Auscultation. Negative for: Wheezes Cardiovascular: Positive for: Normal S1, S2 Abdomen: Positive for: Distention, Normal Bowel Sounds Back: Positive for: Normal Inspection Lower Extremity: Positive for: Normal ROM Neurological: Positive for: CN II-XII Intact, Speech Normal Skin: Positive for: Warm, Dry Psychiatric: Positive for: Alert, Oriented x 3, Anxious - Medications Active Medications: Active Medications Generic Name Dose Route Start Last Admin Trade Name Fernanda PRN Reason Stop Dose Admin Ceftriaxone Sodium 1 gm/ 100 mls @ 100 mls/hr 11/01/16 12:00 11/05/16 11:03 Sodium Chloride IVPB 100 mls/hr Q12H ANA Administration Metronidazole 100 mls @ 100 mls/hr 11/02/16 21:00 11/05/16 14:26 Flagyl IVPB 100 mls/hr Q8 ANA Administration Lactated Ringer's 1,000 mls @ 75 mls/hr 11/02/16 22:22 11/05/16 04:30 Lactated Ringer's IV 75 mls/hr .[id number] ANA Administration Metoclopramide HCl 5 mg 11/02/16 16:30 11/05/16 10:58 Reglan IVP 5 mg ACHS ANA Administration Pantoprazole Sodium 40 mg 11/02/16 07:30 11/05/16 08:55 Protonix Inj IVP 40 mg Q12H ANA Administration - Patient Studies Lab Studies: Lab Studies 11/05/16 11/05/16 11/05/16 Range/Units 15:51 15:29 13:15 WBC 11.7 H 12.0 H (4.8-10.8) K/uL RBC 2.84 L 2.86 L (4.40-5.90) Mil/uL Hgb 8.5 L 8.6 L (12.0-18.0) g/dL Hct 24.7 L 24.9 L (35.0-51.0) % MCV 86.9 87.2 (80.0-94.0) fL MCH 29.7 29.9 (27.0-31.0) pg MCHC 34.2 34.3 (33.0-37.0) g/dL RDW 14.3 14.7 H (11.5-14.5) % Plt Count 127 L 126 L (130-400) K/uL MPV 8.7 8.9 (7.2-11.7) fL Neut % (Auto) 70.7 (50.0-75.0) % Lymph % (Auto) 11.4 L (20.0-40.0) % [place] % (Auto) 13.4 H (0.0-10.0) % Eos % (Auto) 3.5 (0.0-4.0) % Baso % (Auto) 1.0 (0.0-2.0) % Neut # 8.5 H (1.8-7.0) K/uL Lymph # 1.4 (1.0-4.3) K/uL [place] # 1.6 H (0.0-0.8) K/uL Eos # 0.4 (0.0-0.7) K/uL Baso # 0.1 (0.0-0.2) K/uL Neutrophils % (Manual) (50-75) % Lymphocytes % (Manual) (20-40) % Reactive Lymphs % (0-0) % Monocytes % (Manual) (0-10) % Eosinophils % (Manual) (0-4) % Platelet Estimate (NORMAL) Large Platelets PT 15.4 H (9.7-12.2) SECONDS INR 1.4 Sodium (132-148) mmol/L Potassium (3.6-5.2) mmol/L Chloride (98-107) mmol/L Carbon Dioxide (22-30) mmol/L Anion Gap (10-20) BUN (9-20) mg/dL Creatinine (0.8-1.5) MG/DL Est GFR ( Amer) Est GFR (Non-Af Amer) Random Glucose (75-110) mg/dL Calcium (8.6-10.4) mg/dl Phosphorus (2.5-4.5) mg/dL Magnesium (1.6-2.3) mg/dL Total Bilirubin (0.2-1.3) mg/dL AST (17-59) U/L ALT (21-72) U/L Alkaline Phosphatase (38-126) U/L Total Creatine Kinase 242 H (55-170) U/L CK-MB (Mass) 16.0 H (0.0-3.38) ng/mL Troponin I Cancelled Troponin I, Quant 2.5800 H* (0.00-0.120) ng/mL Total Protein (6.3-8.3) g/dL Albumin (3.5-5.0) g/dL Globulin (2.2-3.9) gm/dL Albumin/Globulin Ratio (1.0-2.1) Blood Type O POSITIVE Antibody Screen Negative 11/05/16 11/05/16 11/05/16 Range/Units 09:20 07:05 00:20 WBC 10.6 11.9 H (4.8-10.8) K/uL RBC 2.62 L 2.28 L (4.40-5.90) Mil/uL Hgb 8.0 L 6.8 L (12.0-18.0) g/dL Hct 23.2 L 20.3 L (35.0-51.0) % MCV 88.6 89.3 D (80.0-94.0) fL MCH 30.4 29.8 (27.0-31.0) pg MCHC 34.3 33.3 (33.0-37.0) g/dL RDW 14.1 14.3 (11.5-14.5) % Plt Count 122 L 131 (130-400) K/uL MPV 8.9 8.8 (7.2-11.7) fL Neut % (Auto) 67.0 75.8 H (50.0-75.0) % Lymph % (Auto) 13.8 L 8.7 L (20.0-40.0) % [place] % (Auto) 14.2 H 12.4 H (0.0-10.0) % Eos % (Auto) 4.4 H 2.5 (0.0-4.0) % Baso % (Auto) 0.6 0.6 (0.0-2.0) % Neut # 7.1 H 9.0 H (1.8-7.0) K/uL Lymph # 1.5 1.0 (1.0-4.3) K/uL [place] # 1.5 H 1.5 H (0.0-0.8) K/uL Eos # 0.5 0.3 (0.0-0.7) K/uL Baso # 0.1 0.1 (0.0-0.2) K/uL Neutrophils % (Manual) 83 H (50-75) % Lymphocytes % (Manual) 4 L (20-40) % Reactive Lymphs % 4 H (0-0) % Monocytes % (Manual) 8 (0-10) % Eosinophils % (Manual) 1 (0-4) % Platelet Estimate Slightly decreased L (NORMAL) Large Platelets Present PT (9.7-12.2) SECONDS INR Sodium 139 (132-148) mmol/L Potassium 3.5 L (3.6-5.2) mmol/L Chloride 104 (98-107) mmol/L Carbon Dioxide 21 L (22-30) mmol/L Anion Gap 18 (10-20) BUN 20 (9-20) mg/dL Creatinine 1.0 (0.8-1.5) MG/DL Est GFR ( Amer) > 60 Est GFR (Non-Af Amer) > 60 Random Glucose 94 (75-110) mg/dL Calcium 7.3 L (8.6-10.4) mg/dl Phosphorus 3.5 (2.5-4.5) mg/dL Magnesium 1.8 (1.6-2.3) mg/dL Total Bilirubin 2.0 H (0.2-1.3) mg/dL AST 36 (17-59) U/L ALT 25 (21-72) U/L Alkaline Phosphatase 46 (38-126) U/L Total Creatine Kinase 141 (55-170) U/L CK-MB (Mass) 5.02 H (0.0-3.38) ng/mL Troponin I Troponin I, Quant 0.9980 H* (0.00-0.120) ng/mL Total Protein 4.8 L (6.3-8.3) g/dL Albumin 2.6 L (3.5-5.0) g/dL Globulin 2.2 (2.2-3.9) gm/dL Albumin/Globulin Ratio 1.2 (1.0-2.1) Blood Type Antibody Screen 11/02/16 Range/Units 15:08 WBC (4.8-10.8) K/uL RBC (4.40-5.90) Mil/uL Hgb (12.0-18.0) g/dL Hct (35.0-51.0) % MCV (80.0-94.0) fL MCH (27.0-31.0) pg MCHC (33.0-37.0) g/dL RDW (11.5-14.5) % Plt Count (130-400) K/uL MPV (7.2-11.7) fL Neut % (Auto) (50.0-75.0) % Lymph % (Auto) (20.0-40.0) % [place] % (Auto) (0.0-10.0) % Eos % (Auto) (0.0-4.0) % Baso % (Auto) (0.0-2.0) % Neut # (1.8-7.0) K/uL Lymph # (1.0-4.3) K/uL [place] # (0.0-0.8) K/uL Eos # (0.0-0.7) K/uL Baso # (0.0-0.2) K/uL Neutrophils % (Manual) (50-75) % Lymphocytes % (Manual) (20-40) % Reactive Lymphs % (0-0) % Monocytes % (Manual) (0-10) % Eosinophils % (Manual) (0-4) % Platelet Estimate (NORMAL) Large Platelets PT (9.7-12.2) SECONDS INR Sodium (132-148) mmol/L Potassium (3.6-5.2) mmol/L Chloride (98-107) mmol/L Carbon Dioxide (22-30) mmol/L Anion Gap (10-20) BUN (9-20) mg/dL Creatinine (0.8-1.5) MG/DL Est GFR ( Amer) Est GFR (Non-Af Amer) Random Glucose (75-110) mg/dL Calcium (8.6-10.4) mg/dl Phosphorus (2.5-4.5) mg/dL Magnesium (1.6-2.3) mg/dL Total Bilirubin (0.2-1.3) mg/dL AST (17-59) U/L ALT (21-72) U/L Alkaline Phosphatase (38-126) U/L Total Creatine Kinase (55-170) U/L CK-MB (Mass) (0.0-3.38) ng/mL Troponin I Troponin I, Quant (0.00-0.120) ng/mL Total Protein (6.3-8.3) g/dL Albumin (3.5-5.0) g/dL Globulin (2.2-3.9) gm/dL Albumin/Globulin Ratio (1.0-2.1) Blood Type O POSITIVE Antibody Screen Negative Laboratory Results - last 24 hr 11/02/16 11/05/16 11/05/16 15:08 00:20 07:05 WBC 11.9 H 10.6 RBC 2.28 L 2.62 L Hgb 6.8 L 8.0 L Hct 20.3 L 23.2 L MCV 89.3 D 88.6 MCH 29.8 30.4 MCHC 33.3 34.3 RDW 14.3 14.1 Plt Count 131 122 L MPV 8.8 8.9 Neut % (Auto) 75.8 H 67.0 Lymph % (Auto) 8.7 L 13.8 L [place] % (Auto) 12.4 H 14.2 H Eos % (Auto) 2.5 4.4 H Baso % (Auto) 0.6 0.6 Neut # 9.0 H 7.1 H Lymph # 1.0 1.5 [place] # 1.5 H 1.5 H Eos # 0.3 0.5 Baso # 0.1 0.1 Neutrophils % (Manual) 83 H Lymphocytes % (Manual) 4 L Reactive Lymphs % 4 H Monocytes % (Manual) 8 Eosinophils % (Manual) 1 Platelet Estimate Slightly decreased L Large Platelets Present PT INR Sodium 139 Potassium 3.5 L Chloride 104 Carbon Dioxide 21 L Anion Gap 18 BUN 20 Creatinine 1.0 Est GFR ( Amer) > 60 Est GFR (Non-Af Amer) > 60 Random Glucose 94 Calcium 7.3 L Phosphorus 3.5 Magnesium 1.8 Total Bilirubin 2.0 H AST 36 ALT 25 Alkaline Phosphatase 46 Total Creatine Kinase CK-MB (Mass) Troponin I Troponin I, Quant Total Protein 4.8 L Albumin 2.6 L Globulin 2.2 Albumin/Globulin Ratio 1.2 Blood Type O POSITIVE Antibody Screen Negative 11/05/16 11/05/16 11/05/16 09:20 13:15 15:29 WBC 12.0 H 11.7 H RBC 2.86 L 2.84 L Hgb 8.6 L 8.5 L Hct 24.9 L 24.7 L MCV 87.2 86.9 MCH 29.9 29.7 MCHC 34.3 34.2 RDW 14.7 H 14.3 Plt Count 126 L 127 L MPV 8.9 8.7 Neut % (Auto) 70.7 Lymph % (Auto) 11.4 L [place] % (Auto) 13.4 H Eos % (Auto) 3.5 Baso % (Auto) 1.0 Neut # 8.5 H Lymph # 1.4 [place] # 1.6 H Eos # 0.4 Baso # 0.1 Neutrophils % (Manual) Lymphocytes % (Manual) Reactive Lymphs % Monocytes % (Manual) Eosinophils % (Manual) Platelet Estimate Large Platelets PT 15.4 H INR 1.4 Sodium Potassium Chloride Carbon Dioxide Anion Gap BUN Creatinine Est GFR ( Amer) Est GFR (Non-Af Amer) Random Glucose Calcium Phosphorus Magnesium Total Bilirubin AST ALT Alkaline Phosphatase Total Creatine Kinase 141 242 H CK-MB (Mass) 5.02 H 16.0 H Troponin I Cancelled Troponin I, Quant 0.9980 H* 2.5800 H* Total Protein Albumin Globulin Albumin/Globulin Ratio Blood Type Antibody Screen 11/05/16 15:51 WBC RBC Hgb Hct MCV MCH MCHC RDW Plt Count MPV Neut % (Auto) Lymph % (Auto) [place] % (Auto) Eos % (Auto) Baso % (Auto) Neut # Lymph # [place] # Eos # Baso # Neutrophils % (Manual) Lymphocytes % (Manual) Reactive Lymphs % Monocytes % (Manual) Eosinophils % (Manual) Platelet Estimate Large Platelets PT INR Sodium Potassium Chloride Carbon Dioxide Anion Gap BUN Creatinine Est GFR ( Amer) Est GFR (Non-Af Amer) Random Glucose Calcium Phosphorus Magnesium Total Bilirubin AST ALT Alkaline Phosphatase Total Creatine Kinase CK-MB (Mass) Troponin I Troponin I, Quant Total Protein Albumin Globulin Albumin/Globulin Ratio Blood Type O POSITIVE Antibody Screen Negative EKG/Cardiology Studies: Cardiology / EKG Studies 11/05/16 08:38 EKG [ELECTROCARDIOGRAM] Stat Comment: Mode Of Transportation: BED Reason For Exam: chest discomfort Review of Systems - Review of Systems All systems: reviewed and no additional remarkable complaints except (Rectal bleeding) Critical Care Progress Note - Nutrition Nutrition: Nutrition Category Date Time Status NPO Diet [DIET] Diets 11/02/16 Dinner Active Assessment/Plan (1) Rectal bleeding Current Visit: Yes Status: Acute Comment: Status post transfusion of total 10 units packed RBCs and 5 units FFP Continue to have rectal bleeding CT angiogram done this morning Patient found to have elevated troponins most likely secondary to demand ischemia Case discussed with surgery and interventional radiology Patient high-risk for surgery because of elevated troponin Monitor H&H and transfuse as necessary (2) Elevated troponin Current Visit: Yes Status: Acute Comment: Not candidate for any anticoagulation because of active bleeding
[2016-11-05 21:42] LABS: HEMATOCRIT 27.9 % (35.0-51.0); MEAN CELL VOLUME 87.1 fL (80.0-94.0); MEAN CORPUSCULAR HEMOGLOBIN 29.7 pg (27.0-31.0); MEAN PLATELET VOLUME 8.9 fL (7.2-11.7); RED CELL DISTRIBUTION WIDTH 14.4 % (11.5-14.5); WHITE BLOOD COUNT 12.3 K/uL (4.8-10.8)
[2016-11-06] MEDS: metroNIDAZOLE IV 500 mg/100 ml 100 ML IVPB SCH ×3 (05:24→21:27)
[2016-11-06] MEDS: Lactated Ringer's 1,000 ML IV SCH (05:24)
[2016-11-06 06:46] LABS: BASO # 0.2 K/uL (0.0-0.2); BASO % 1.3 % (0.0-2.0); EOS # 0.7 K/uL (0.0-0.7); EOS % 5.7 % (0.0-4.0); HEMATOCRIT 27.6 % (35.0-51.0); LYMPH # 1.1 K/uL (1.0-4.3); LYMPH % 9.3 % (20.0-40.0); MEAN CELL VOLUME 87.8 fL (80.0-94.0); MEAN CORPUSCULAR HGB CONC 34.2 g/dL (33.0-37.0); MEAN PLATELET VOLUME 9.4 fL (7.2-11.7); MONO # 1.6 K/uL (0.0-0.8); MONO % 13.6 % (0.0-10.0); PLATELET COUNT 137 K/uL (130-400); RED CELL DISTRIBUTION WIDTH 14.7 % (11.5-14.5)
[2016-11-06 06:53] LABS: CHLORIDE 106 mmol/L (98-107); SODIUM 139 mmol/L (132-148)
[2016-11-06 06:54] LABS: POTASSIUM 3.5 mmol/L (3.6-5.2)
[2016-11-06 06:55] LABS: GFR AFRICAN-AMERICAN > 60
[2016-11-06 06:56] LABS: ALB/GLOB RATIO 0.9 (1.0-2.1); ALKALINE PHOSPHATASE 43 U/L (38-126); ALT/SGPT 37 U/L (21-72); AST/SGOT 62 U/L (17-59); BILIRUBIN,TOTAL 1.2 mg/dL (0.2-1.3); BLOOD UREA NITROGEN 18 mg/dL (9-20); CARBON DIOXIDE 25 mmol/L (22-30); GLUCOSE,RANDOM 77 mg/dL (75-110); PHOSPHOROUS 2.9 mg/dL (2.5-4.5); TOTAL PROTEIN 4.8 g/dL (6.3-8.3)
[2016-11-06 06:57] LABS: CALCIUM 7.3 mg/dl (8.6-10.4); MAGNESIUM 1.8 mg/dL (1.6-2.3)
--- NOTE | 2016-11-06 09:09 | PN ---
DATE: 11/06/2016 LOCATION: ICU 8. This is an 86-year-old male seen and examined in rounds, appears to be awake, alert, oriented with ag ain episodes of rectal bleeding early this morning. The patient had been scheduled yesterday for CAT scan angio, but nothing was done apparently, and no immobilization procedure performed according to the nursing staff and the notes. Most recent chest x-ray showed bilateral pleural effusion, right side more than the left, with mild b ibasilar atelectasis with slight pulmonary congestion. The entire chart is reviewed, including but not limited to the most recent lab and radiology study re sults, current and the previous medication list, current and the previous medical events. Case discu ssed at length with the staff in the intensive care unit, and the patient's today's white blood cells are 12.0 with low hemoglobin 9.4, low hematocrit ____.6, but normal platelet count with low potassiu m of 3.5, low calcium 7.3, and mildly increased ____ 62 with continuously elevated troponin level - l atest was 6.8, most likely secondary to ischemic changes due to his anemia with low albumin and low t otal protein. PHYSICAL EXAMINATION: GENERAL: An 86-year-old male, awake, alert, oriented. VITAL SIGNS: Afebrile with pulse of 86, respiratory rate 20-22 with blood pressure of 100/42. HEENT: Showed pale, dry oral mucoid membrane. Nonicteric sclerae. LUNGS: Few scattered crepitations, decreased air entry at bases. HEART: Positive S1 and S2. ABDOMEN: Soft. Bowel sounds are present, but hyperactive. No mass or organomegaly. RECTAL: Deferred. EXTREMITIES: Lower extremities edematous changes. No clubbing or cyanosis. IMPRESSION: 1. Gastrointestinal bleeding, most likely secondary to bleeding diverticulosis. It has to be mentio danis that the patient was scheduled for repeat colonoscopy with epinephrine irrigation twice by myself , and it was canceled, as it was suggested to take the patient for CAT scan angiography, no immobiliz ation done. 2. Anemia secondary to above. 3. Increased troponin level. The patient is not a candidate for any anticoagulation due to his acti ve bleeding. 4. Mild congestive heart failure with pleural effusion and atelectasis by chest x-ray. 5. Evidence of metabolic acidosis secondary to above. 6. Malnutrition with hypoalbuminemia. 7. 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 SUGGESTION: 1. Continue current management. 2. The patient may need repeat colonoscopy with epinephrine irrigation if is stable at a.m. that is to be discussed with the franchise business consultant on the case. Seth Crouch MD cc: 14 TT: 11/06/2016 09:08:25 Confirmation # [id number] Dictation # [id number] jn
[2016-11-06 09:19] LABS: EOSINOPHIL 5 % (0-4); NEUTROPHIL 70 % (50-75); REACTIVE LYMPHOCYTES 2 % (0-0); TOTAL CELLS COUNTED 100
--- NOTE | 2016-11-06 10:59 | CP.PCM.PN ---
Subjective - Date & Time of Evaluation Date of Evaluation: 11/06/16 Time of Evaluation: 08:40 - Subjective Subjective: General Surgery Pt S&E, Objective - Vital Signs/Intake and Output Vital Signs (last 24 hours): Temp Pulse Resp BP Pulse Ox 100 F H 85 33 H 120/44 L 97 11/06/16 08:00 11/06/16 10:10 11/06/16 10:10 11/06/16 10:10 11/06/16 10:10 Intake and Output: 11/06/16 11/06/16 06:59 18:59 Intake Total 950 977 Output Total 530 100 Balance 420 877 - Medications Medications: Current Medications Ceftriaxone Sodium 1 gm/ (Sodium Chloride) 100 mls @ 100 mls/hr IVPB Q12H [facility] Last Admin: 11/06/16 00:01 Dose: 100 mls/hr Metronidazole (Flagyl) 100 mls @ 100 mls/hr IVPB Q8 [facility] Last Admin: 11/06/16 05:24 Dose: 100 mls/hr Lactated Ringer's (Lactated Ringer's) 1,000 mls @ 75 mls/hr IV .[id number] [facility] Last Admin: 11/06/16 05:24 Dose: 75 mls/hr Metoclopramide HCl (Reglan) 5 mg IVP ACHS [facility] Last Admin: 11/06/16 06:43 Dose: 5 mg Pantoprazole Sodium (Protonix Inj) 40 mg IVP Q12H ANA Last Admin: 11/06/16 07:38 Dose: 40 mg Zolpidem Tartrate (Ambien) 5 mg PO HS PRN PRN Reason: Insomnia Last Admin: 11/06/16 00:00 Dose: 5 mg - Labs Labs: 11/06/16 06:28 11/06/16 06:28 PT 15.4 SECONDS (9.7-12.2) H 11/05/16 15:29 INR 1.4 11/05/16 15:29 APTT 28 SECONDS (21-34) 11/03/16 17:40
--- NOTE | 2016-11-06 12:50 | CON ---
DATE: 11/06/2016 This is a second opinion consultation. The patient is an 86-year-old man admitted to the hospital on 11/01 who I was asked to see today, [phone], for a second opinion regarding management of his gastrointestinal bleed. The patient had a remote h istory of having an open cholecystectomy by me done over 10 years ago. His past medical history, review of systems, and family history are noted on the chart. The most elie ient features are he had a history of previous heart bypass surgery. He has a history of an 11 unit GI bleed. He has had a history of extensive evaluations including bleeding scan, CT angiography, dir ect contrast interventional radiologist and the only positive finding was a nuclear bone scan w hich suggested that there was bleeding in the sigmoid colonic region. His recent cardiac history inc luding elevation of his troponin levels on 11/04 is noted. Subsequent to examining the patient with the above-mentioned findings and subsequent to my review of all the studies involved, I discussed this with the 2 cardiologists involved, Dr. Phan and Dr. Cherise sibley, the feeling is that he had an acute myocardial event, and also with Dr. Allan, who is the [facility] surgical first assistant. At this point, I think the patient should have surgery to remove his col on. However, in view of his recent cardiac events and elevation of troponin, I feel that the risks o f proceeding with any surgical intervention at this time are higher than the risks of not intervening . I recommend supportive care, but very aggressively so, so that his hemoglobin does not go low and that this be aggressively treated as such. Franky Higgins Jr., MD cc: 56 TT: 11/06/2016 12:49:58 Confirmation # [id number] Dictation # [id number]
--- NOTE | 2016-11-06 13:09 | CP.PCM.PN ---
Subjective - Date & Time of Evaluation Date of Evaluation: 11/06/16 Time of Evaluation: 12:45 - Subjective Subjective: Seen and examined No chest pain or dyspnea Objective - Vital Signs/Intake and Output Vital Signs (last 24 hours): Temp Pulse Resp BP Pulse Ox 100.4 F H 95 H 32 H 116/54 L 93 L 11/06/16 12:00 11/06/16 12:00 11/06/16 12:00 11/06/16 12:00 11/06/16 12:00 Intake and Output: 11/06/16 11/06/16 06:59 18:59 Intake Total 950 1152 Output Total 530 200 Balance 420 952 - Medications Medications: Current Medications Metronidazole (Flagyl) 100 mls @ 100 mls/hr IVPB Q8 [facility] Last Admin: 11/06/16 05:24 Dose: 100 mls/hr Lactated Ringer's (Lactated Ringer's) 1,000 mls @ 75 mls/hr IV .[id number] [facility] Last Admin: 11/06/16 05:24 Dose: 75 mls/hr Metoclopramide HCl (Reglan) 5 mg IVP ACHS [facility] Last Admin: 11/06/16 11:18 Dose: 5 mg Pantoprazole Sodium (Protonix Inj) 40 mg IVP Q12H [facility] Last Admin: 11/06/16 07:38 Dose: 40 mg Zolpidem Tartrate (Ambien) 5 mg PO HS PRN PRN Reason: Insomnia Last Admin: 11/06/16 00:00 Dose: 5 mg - Labs Labs: 11/06/16 06:28 11/06/16 06:28 PT 15.4 SECONDS (9.7-12.2) H 11/05/16 15:29 INR 1.4 11/05/16 15:29 APTT 28 SECONDS (21-34) 11/03/16 17:40 - Constitutional Appears: Well, Non-toxic, No Acute Distress - Head Exam Head Exam: ATRAUMATIC, NORMOCEPHALIC - Eye Exam Pupil Exam: PERRL - ENT Exam ENT Exam: Mucous Membranes Moist - Respiratory Exam Respiratory Exam: Clear to Ausculation Bilateral - Cardiovascular Exam Cardiovascular Exam: REGULAR RHYTHM, RRR, +S1, +S2. absent: JVD - GI/Abdominal Exam GI & Abdominal Exam: Soft. absent: Distended, Guarding, Tenderness - Neurological Exam Neurological Exam: Alert, CN II-XII Intact, Oriented x3 Assessment and Plan (1) NSTEMI (non-ST elevated myocardial infarction) Assessment & Plan: Patient with known h/o CAD, s/p CABG in the past Previous non-invasive work-up for ischemia has been negative NSTEMI in the setting of an acute blood loss anemia secondary to LGIB, demand ischemia No symptoms of ACS, hemodynamically stable Repeat EKG today shows no acute ischemia Cardiac catheterization would not be appropriate at this time, as even if there are significant CAD findings, the patient would be high risk for bleeding if PCI to be considered, unless the patient develops decompensated heart failure or becomes hemodynamically unstable in setting of ACS No aspirin or anticoagulation bc acute blood loss anemia Will start a low dose bblocker and statin Further recommendations based upon clinical course Status: Acute (2) Rectal bleeding Assessment & Plan: If the patient becomes hemodynamically unstable in setting of acute blood loss, requiring pRBC transfusion and a surgical intervention to be entertained, the patient would be a high risk for surgery from cardiac perspective, but could proceed to the OR with accepted risks, as the benefit of surgical intervention would outweigh the risk of perioperatve [place] Status: Acute
--- NOTE | 2016-11-06 13:19 | CP.PCM.PN ---
Subjective - Date & Time of Evaluation Date of Evaluation: 11/06/16 Time of Evaluation: 08:55 - Subjective Subjective: Medical Attending Note: Follow-up: Lower GI bleed (likely diverticular origin), Acute anemia secondary to GI bleed, Nonstemi, History of Diverticulosis, symptomatic hypotension secondary to blood loss secondary to GI bleed, acute renal insufficiency, Coronary Artery Disease, history of hypertension, possible urinary tract infection Patient seen and examined this morning Patient reports he is not bleeding at the moment, but did have some bleeding before. Patient denies headache, denies chest pain, denies palpitations, denies shortness of breathe, denies abdominal, reports BRBPR, reports fatigue. Patient reports concerns over surgery evaluation. Explained to patient the consideration for surgery evaluation is in light of the current workup which he has completed GI, colonoscopy, and bleeding scan and likely he has diverticular bleed but cannot find the source thus far in terms of his workup. Patient also expressed concerned about the number of blood products he is receiving, and explained to the patient blood products is given in light of if he continues to bleed or not, because anemia will cause stress on the heart and as well as giving too much blood can stress the heart differently. Patient reports he has not been out of bed and explained likely due to his bleeding causing hypotension , and concern to reduce risk for consequences secondary to fall such as head trauma or broken hip for example. Objective - Vital Signs/Intake and Output Vital Signs (last 24 hours): Temp Pulse Resp BP Pulse Ox 100.4 F H 90 41 H 133/46 L 92 L 11/06/16 12:00 11/06/16 13:10 11/06/16 13:10 11/06/16 13:10 11/06/16 13:10 Intake and Output: 11/06/16 11/06/16 06:59 18:59 Intake Total 950 1347 Output Total 530 225 Balance 420 1122 - Medications Medications: Current Medications Metronidazole (Flagyl) 100 mls @ 100 mls/hr IVPB Q8 [facility] Last Admin: 11/06/16 05:24 Dose: 100 mls/hr Lactated Ringer's (Lactated Ringer's) 1,000 mls @ 75 mls/hr IV .[id number] [facility] Last Admin: 11/06/16 05:24 Dose: 75 mls/hr Metoclopramide HCl (Reglan) 5 mg IVP ACHS [facility] Last Admin: 11/06/16 11:18 Dose: 5 mg Pantoprazole Sodium (Protonix Inj) 40 mg IVP Q12H [facility] Last Admin: 11/06/16 07:38 Dose: 40 mg Zolpidem Tartrate (Ambien) 5 mg PO HS PRN PRN Reason: Insomnia Last Admin: 11/06/16 00:00 Dose: 5 mg - Labs Labs: 11/06/16 06:28 11/06/16 06:28 PT 15.4 SECONDS (9.7-12.2) H 11/05/16 15:29 INR 1.4 11/05/16 15:29 APTT 28 SECONDS (21-34) 11/03/16 17:40 - Constitutional Appears: Non-toxic, No Acute Distress - Head Exam Head Exam: NORMAL INSPECTION - Eye Exam Eye Exam: EOMI Pupil Exam: PERRL - ENT Exam ENT Exam: Mucous Membranes Dry - Respiratory Exam Respiratory Exam: Clear to Ausculation Bilateral, NORMAL BREATHING PATTERN. absent: Rales, Rhonchi, Wheezes - Cardiovascular Exam Cardiovascular Exam: REGULAR RHYTHM, +S1, +S2. absent: JVD - GI/Abdominal Exam GI & Abdominal Exam: Distended, Soft, Normal Bowel Sounds. absent: Guarding, Rigid, Tenderness, Rebound - Extremities Exam Extremities Exam: Pedal Edema. absent: Tenderness - Neurological Exam Neurological Exam: Alert, Awake, Oriented x3 - Psychiatric Exam Psychiatric exam: Normal Affect, Normal Mood - Skin Skin Exam: Dry, Intact, Pallor, Warm Assessment and Plan - Assessment and Plan (Free Text) Assessment: Assessment/Plan 1) Lower GI Bleed likely diverticular in origin GI (Dr. Crouch) on the case; help appreciated EGD (11/02/16): medium sized hiatus hernia, acute gastritis; pathology negative for H Pylori Colonoscopy (11/03/16): non-bleeding internal hemorrhoids, severe diverticulosis in the entire examined colon, there was active bleeding coming from the diverticular opening, blood in the entire examined colon. Transferred to ICU on 11/02/16; has need multiple transfusions including PRBC and FFP during hospitalization CT Abdomen/Pelvis (11/01/16): diverticulosis without definite CT evidence of diverituclitis; moderate to entensive disease of visualized arteries. no arotic aneurysm Bleeding Scan (11/02/16): findings suspicious for a focus of active GI bleeding in the pelvis, most likely to sigmoid colon Mesenteric angiogram (11/04/16): no evidence of GI bleed SMA or ÁNGELA. Selective catherization catherization of ÁNGELA shows no bleed General surgery (Dr. Allan)- on the case; help appreciated General surgery (Dr. 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 Cardiology Consult: Dr Holt on board off aspirin and anticoagulation secondary to acute blood loss secondary to lower GI bleed No plans for cardiac catherization because is high risk for bleeding; unless he develops decompensated heart failure or hemodynamic unstable in setting of ACS per cardio note Started on Lopressor 12.5mg PO bid per cardiology Crestor 20mg PO qHS Troponins: 0.9980, 2.5800, 6.800, demand ischemia secondary to GI bleed 3) Acute Renal insufficency Resolved 4) Abnormal urinalysis urine culture No growth (was on Rocephin 11/01-11/06) UA showed both esterase and pyuria 5) Symptomatic hypotension secondary to GI bleed see Lower GI bleed 6) CAD History of known coronary artery disease s/p CABG Cardiology Consult: Dr Holt on board off aspirin and anticoagulation secondary to acute blood loss secondary to lower GI bleed No plans for cardiac catherization because is high risk for bleeding; unless he develops decompensated heart failure or hemodynamic unstable in setting of ACS per cardio note Started on Lopressor 12.5mg PO bid per cardiology Crestor 20mg PO qHS Echocardiogram (11/03/16): left ventricle systolic function is normal, mild valvular aortic stenosis (official findings per EMR) 7) History of COPD Patient is not in acute exacerbation. Patient is a current smoker; not actively smoking while in hospitalization Chest Xray (11/05/16): bilateral effusion right larger than left. mild bibasilar atelectasis, central pulmonary vasculature is slightly increased suggesting mild venous congestion 8) Prophylactic Care GI ppx: Protonix 40mg IV Q 12hours VTE ppx contraindcation secondary to acute GI bleed
--- NOTE | 2016-11-06 13:26 | PN ---
DATE: 11/06/2016 The patient is alert, oriented, not in any apparent distress. Had a small . He was given 2 uni ts overnight with 1 unit fresh frozen plasma and his hemoglobin is 9.4. His troponins, however, have went from 0.9 to 2.5 to 6. He is also hypoalbuminemic and hypokalemic. His cardiac condition has n ot improved. Actually, the troponins were elevated more so than before. If he started on clear liqu ids, could probably go ahead and do clear Boost or start patient on Clinimix as well as monitor his P T, PTT, and INR. The INR is 1.4 at this time. Should be corrected to avoid further bleeding. I als o was informed by the control room supervisor that the family was interested in Dr. Higgins. I understand Dr. Zachary Vallejo saw the patient. He thinks he saw the patient for a second opinion. However, since I do not frequent this place often enough, I asked Dr. Higgins to go ahead and take over from surgical point of view and I will stop by when I am in the hospital to just say cyn. Gus Allan MD cc: 240 TT: 11/06/2016 13:25:59 Confirmation # [id number] Dictation # [id number]
--- NOTE | 2016-11-06 17:07 | CP.CCUPN ---
CCU Subjective - Physician Review Events Since Last Encounter (Free Text): 11/06/16 17:04 Patient still having GI bleeding, patient requested Dr. Higgins for surgery. CCU Objective - Vital Signs / Intake & Output Vital Signs (Last 4 hours): Vital Signs Temp Pulse Resp BP Pulse Ox 11/06/16 16:00 100.7 F H 89 12 126/59 L 93 L 11/06/16 15:10 89 16 126/59 L 94 L 11/06/16 15:00 88 27 H 94 L 11/06/16 14:09 97 H 21 123/61 11/06/16 14:00 93 H 17 11/06/16 13:15 93 H 38 H 96 11/06/16 13:10 90 41 H 133/46 L 92 L Intake and Output (Last 8hrs): Intake & Output 11/06/16 11/06/16 11/06/16 06:59 14:59 22:59 Intake Total 625 1542 195 Output Total 280 250 25 Balance 345 1292 170 Weight 217 lb Intake: Intake, IV Amount 625 1302 75 Right Medial Port 625 1302 75 Internal Jugular Oral 0 240 120 Output: Urine 280 250 25 Urethral (Eli) 280 250 25 Other: # Bowel Movements 1 0 0 - Physical Exam Head: Positive for: Atraumatic, Normocephalic Pupils: Positive for: PERRL Extroacular Muscles: Positive for: EOMI Ears: Positive for: Normal Mouth: Positive for: Moist Mucous Membranes Nose (External): Positive for: Atraumatic Nose (Internal): Positive for: Normal Inspection Neck: Positive for: Normal Range of Motion Respiratory/Chest: Positive for: Clear to Auscultation. Negative for: Wheezes Cardiovascular: Positive for: Normal S1, S2 Abdomen: Positive for: Distention, Normal Bowel Sounds Back: Positive for: Normal Inspection Lower Extremity: Positive for: Normal ROM Neurological: Positive for: CN II-XII Intact, Speech Normal Skin: Positive for: Warm, Dry Psychiatric: Positive for: Alert, Oriented x 3, Anxious - Medications Active Medications: Active Medications Generic Name Dose Route Start Last Admin Trade Name Freq PRN Reason Stop Dose Admin Metronidazole 100 mls @ 100 mls/hr 11/02/16 21:00 11/06/16 13:28 Flagyl IVPB 100 mls/hr Q8 ANA Administration Lactated Ringer's 1,000 mls @ 75 mls/hr 11/06/16 05:30 11/06/16 05:24 Lactated Ringer's IV 75 mls/hr .[id number] ANA Administration Metoclopramide HCl 5 mg 11/02/16 16:30 11/06/16 17:01 Reglan IVP 5 mg ACHS ANA Administration Metoprolol Tartrate 12.5 mg 11/06/16 18:00 Lopressor PO BID ANA Pantoprazole Sodium 40 mg 11/02/16 07:30 11/06/16 07:38 Protonix Inj IVP 40 mg Q12H ANA Administration Rosuvastatin Calcium 20 mg 11/06/16 22:00 Crestor PO HS ANA Zolpidem Tartrate 5 mg 11/05/16 21:30 11/06/16 00:00 Ambien PO 5 mg HS PRN Administration Insomnia - Patient Studies Lab Studies: Lab Studies 11/06/16 11/05/16 Range/Units 06:28 21:30 WBC 12.0 H 12.3 H (4.8-10.8) K/uL RBC 3.15 L 3.21 L (4.40-5.90) Mil/uL Hgb 9.4 L 9.5 L (12.0-18.0) g/dL Hct 27.6 L 27.9 L (35.0-51.0) % MCV 87.8 87.1 (80.0-94.0) fL MCH 30.0 29.7 (27.0-31.0) pg MCHC 34.2 34.0 (33.0-37.0) g/dL RDW 14.7 H 14.4 (11.5-14.5) % Plt Count 137 128 L (130-400) K/uL MPV 9.4 8.9 (7.2-11.7) fL Neut % (Auto) 70.1 (50.0-75.0) % Lymph % (Auto) 9.3 L (20.0-40.0) % [place] % (Auto) 13.6 H (0.0-10.0) % Eos % (Auto) 5.7 H (0.0-4.0) % Baso % (Auto) 1.3 (0.0-2.0) % Neut # 8.4 H (1.8-7.0) K/uL Lymph # 1.1 (1.0-4.3) K/uL [place] # 1.6 H (0.0-0.8) K/uL Eos # 0.7 (0.0-0.7) K/uL Baso # 0.2 (0.0-0.2) K/uL Neutrophils % (Manual) 70 (50-75) % Band Neutrophils % 1 (0-2) % Lymphocytes % (Manual) 9 L (20-40) % Reactive Lymphs % 2 H (0-0) % Monocytes % (Manual) 13 H (0-10) % Eosinophils % (Manual) 5 H (0-4) % Platelet Estimate Normal (NORMAL) Polychromasia Slight Poikilocytosis (manual Slight Anisocytosis (manual) Slight Microcytosis (manual) Slight Macrocytosis (manual) Slight Tear Drop Cells Slight Ovalocytes Slight Sodium 139 (132-148) mmol/L Potassium 3.5 L (3.6-5.2) mmol/L Chloride 106 (98-107) mmol/L Carbon Dioxide 25 (22-30) mmol/L Anion Gap 12 (10-20) BUN 18 (9-20) mg/dL Creatinine 1.0 (0.8-1.5) MG/DL Est GFR ( Amer) > 60 Est GFR (Non-Af Amer) > 60 Random Glucose 77 (75-110) mg/dL Calcium 7.3 L (8.6-10.4) mg/dl Phosphorus 2.9 (2.5-4.5) mg/dL Magnesium 1.8 (1.6-2.3) mg/dL Total Bilirubin 1.2 (0.2-1.3) mg/dL AST 62 H D (17-59) U/L ALT 37 (21-72) U/L Alkaline Phosphatase 43 (38-126) U/L Total Creatine Kinase 373 H (55-170) U/L CK-MB (Mass) 24.8 H (0.0-3.38) ng/mL Troponin I, Quant 6.8100 H* (0.00-0.120) ng/mL Total Protein 4.8 L (6.3-8.3) g/dL Albumin 2.3 L (3.5-5.0) g/dL Globulin 2.5 (2.2-3.9) gm/dL Albumin/Globulin Ratio 0.9 L (1.0-2.1) Laboratory Results - last 24 hr 11/05/16 11/06/16 21:30 06:28 WBC 12.3 H 12.0 H RBC 3.21 L 3.15 L Hgb 9.5 L 9.4 L Hct 27.9 L 27.6 L MCV 87.1 87.8 MCH 29.7 30.0 MCHC 34.0 34.2 RDW 14.4 14.7 H Plt Count 128 L 137 MPV 8.9 9.4 Neut % (Auto) 70.1 Lymph % (Auto) 9.3 L [place] % (Auto) 13.6 H Eos % (Auto) 5.7 H Baso % (Auto) 1.3 Neut # 8.4 H Lymph # 1.1 [place] # 1.6 H Eos # 0.7 Baso # 0.2 Neutrophils % (Manual) 70 Band Neutrophils % 1 Lymphocytes % (Manual) 9 L Reactive Lymphs % 2 H Monocytes % (Manual) 13 H Eosinophils % (Manual) 5 H Platelet Estimate Normal Polychromasia Slight Poikilocytosis (manual Slight Anisocytosis (manual) Slight Microcytosis (manual) Slight Macrocytosis (manual) Slight Tear Drop Cells Slight Ovalocytes Slight Sodium 139 Potassium 3.5 L Chloride 106 Carbon Dioxide 25 Anion Gap 12 BUN 18 Creatinine 1.0 Est GFR ( Amer) > 60 Est GFR (Non-Af Amer) > 60 Random Glucose 77 Calcium 7.3 L Phosphorus 2.9 Magnesium 1.8 Total Bilirubin 1.2 AST 62 H D ALT 37 Alkaline Phosphatase 43 Total Creatine Kinase 373 H CK-MB (Mass) 24.8 H Troponin I, Quant 6.8100 H* Total Protein 4.8 L Albumin 2.3 L Globulin 2.5 Albumin/Globulin Ratio 0.9 L Review of Systems - Review of Systems All systems: reviewed and no additional remarkable complaints except - Gastrointestinal Gastrointestinal: Hematochezia Critical Care Progress Note - Nutrition Nutrition: Nutrition Category Date Time Status Liquid Diet [DIET] Diets 11/06/16 Lunch Active Assessment/Plan (1) Diverticular hemorrhage Assessment and plan: 86 year old male presents with a past medical history of CAD s/p CABG in 1992, HTN, COPD, venous insufficiency and diverticulosis, and constipation. p/w diverticular hemorrhage. Neuro: Alert and oriented 3 Pulm: No acute issues, eating spontaneously on room air CV: Hemodynamically stable Hem: Anemia from blood loss, monitoring H&H every 12 hours. Renal: No acute issues, urine output within normal limits Endo: No acute issues GI: Nothing by mouth, 2 bloody bowel movements today. Patient has opted to go with surgical intervention, has requested Dr. Higgins as his surgeon, as patient has used [facility] for his previous cholecystectomy in the past. ID: No acute issues DVT proph - hold current bleed, SCDs GI proph - Protonix eli for strict I/O's during acute illness Code status - full code Crtical Care Time spent 35 minutes Multi-disciplinary rounds were performed with house staff, nursing, speech therapy, respiratory therapy, pharmacy and nutrition with integrated input from the primary team/attending and other consulting services. The documented time is cumulative and includes review of patient data/exams/labs/chart review and examination of the patient on rounds and throughout the day; time is exclusive of any procedures or teaching time. Current Visit: Yes Status: Acute
[2016-11-06 17:43] LABS: HEMATOCRIT 27.7 % (35.0-51.0)
--- NOTE | 2016-11-06 22:22 | CARD ---
APPROVED REPORT EKG Measurement Heart [id number] <Conclusion> Accelerated Junctional rhythm Nonspecific ST segment abnormality Septal infarct, age undetermined Abnormal ECG
[2016-11-07] MEDS ORDERED: DiphenhydrAMINE 12.5 mg/5 ml LIQ UD (5 ml) PO STA (00:39)
[2016-11-07] MEDS: Lactated Ringer's 1,000 ML IV SCH ×2 (00:53→09:56)
[2016-11-07] MEDS: metroNIDAZOLE IV 500 mg/100 ml 100 ML IVPB SCH ×3 (05:31→22:26)
[2016-11-07 06:39] LABS: BASO # 0.1 K/uL (0.0-0.2); BASO % 0.6 % (0.0-2.0); EOS # 0.6 K/uL (0.0-0.7); HEMATOCRIT 27.1 % (35.0-51.0); LYMPH # 1.2 K/uL (1.0-4.3); LYMPH % 9.6 % (20.0-40.0); MEAN CELL VOLUME 89.4 fL (80.0-94.0); MEAN CORPUSCULAR HEMOGLOBIN 30.2 pg (27.0-31.0); MEAN CORPUSCULAR HGB CONC 33.8 g/dL (33.0-37.0); MEAN PLATELET VOLUME 9.2 fL (7.2-11.7); MONO # 1.9 K/uL (0.0-0.8); MONO % 15.6 % (0.0-10.0); PLATELET COUNT 148 K/uL (130-400); RED CELL DISTRIBUTION WIDTH 15.6 % (11.5-14.5); WHITE BLOOD COUNT 12.2 K/uL (4.8-10.8)
[2016-11-07 06:42] LABS: CHLORIDE 106 mmol/L (98-107); POTASSIUM 3.6 mmol/L (3.6-5.2); SODIUM 140 mmol/L (132-148)
[2016-11-07 06:44] LABS: AST/SGOT 44 U/L (17-59); CARBON DIOXIDE 26 mmol/L (22-30); GFR AFRICAN-AMERICAN > 60
[2016-11-07 06:45] LABS: ALB/GLOB RATIO 0.9 (1.0-2.1); ALKALINE PHOSPHATASE 39 U/L (38-126); ALT/SGPT 36 U/L (21-72); BLOOD UREA NITROGEN 19 mg/dL (9-20); CALCIUM 7.3 mg/dl (8.6-10.4); GLUCOSE,RANDOM 91 mg/dL (75-110); PHOSPHOROUS 2.7 mg/dL (2.5-4.5); TOTAL PROTEIN 4.7 g/dL (6.3-8.3)
[2016-11-07 06:46] LABS: MAGNESIUM 1.9 mg/dL (1.6-2.3)
--- NOTE | 2016-11-07 08:05 | CP.CCUPN ---
<Emmanuel Guerra - Last Filed: 11/07/16 08:05> CCU Subjective - Physician Review Subjective (Free Text): 11/03/16 18:49 Patient seen and examined at bedside in no acute distress. The patient is saturating well on room air. Patient is conversing well and admits to an episode of BM with noted blood (black tarry) yesterday night. Patient admits to intermittent dizzying spells intermittently through the day today. Patient admits to abdominal pain in the right and left lower quadrants. Colonoscopy scheduled for 12:30 pm today with inconclusive findings due to actively bleeding diverticuli. Patient later transfused 2 additional units of PRBC with 1 unit FFP with repeat bloodwork. Otherwise, patient denied headaches, nausea, vomiting, paresthesias, visual changes, urinary changes dyspnea, palpitations, or chest pain a this time. 11/04/16 10:13 Pt seen and examined in no acute distress. Vitals stable overnight per nursing. patient received 2 units of PRBC and 1 unit FFP overnight. Patient did not have any events of hematochezia overnight but have one event early this morning per nursing. Patient will receive another 1 unit PRBC this morning. Patient to have colonoscopy per GI. At this point patient denies subjective fevers or chills, headaches, nausea, vomiting, paresthesias, chest pain, palpitations at this time. CCU Objective - Vital Signs / Intake & Output Vital Signs (Last 4 hours): Vital Signs Pulse Resp BP Pulse Ox 11/07/16 07:09 132/66 11/07/16 07:00 86 18 90 L 11/07/16 06:55 87 16 93 L 11/07/16 06:09 78 38 H 126/59 L 91 L 11/07/16 06:00 79 41 H 94 L 11/07/16 05:10 78 37 H 120/55 L 90 L 11/07/16 05:00 80 41 H 92 L 11/07/16 04:59 80 41 H 91 L 11/07/16 04:10 77 39 H 117/59 L 95 Intake and Output (Last 8hrs): Intake & Output 11/06/16 11/07/16 11/07/16 22:59 06:59 14:59 Intake Total 1115 660 75 Output Total 290 220 Balance 825 440 75 Weight 219 lb Intake: Intake, IV Amount 625 600 75 Right Medial Port 625 600 75 Internal Jugular Oral 490 60 Output: Urine 290 220 Urethral (Jones) 290 220 Other: # Bowel Movements 1 - Physical Exam Head: Positive for: Atraumatic, Normocephalic Pupils: Positive for: PERRL Extroacular Muscles: Positive for: EOMI Ears: Positive for: Normal Mouth: Positive for: Moist Mucous Membranes Nose (External): Positive for: Atraumatic Nose (Internal): Positive for: Normal Inspection Neck: Positive for: Normal Range of Motion Respiratory/Chest: Positive for: Clear to Auscultation. Negative for: Wheezes Cardiovascular: Positive for: Normal S1, S2 Abdomen: Positive for: Distention, Normal Bowel Sounds Back: Positive for: Normal Inspection Lower Extremity: Positive for: Normal ROM Neurological: Positive for: CN II-XII Intact, Speech Normal Skin: Positive for: Warm, Dry Psychiatric: Positive for: Alert, Oriented x 3, Anxious - Medications Active Medications: Active Medications Generic Name Dose Route Start Last Admin Trade Name Freq PRN Reason Stop Dose Admin Metronidazole 100 mls @ 100 mls/hr 11/02/16 21:00 11/07/16 05:31 Flagyl IVPB 100 mls/hr Q8 ANA Administration Lactated Ringer's 1,000 mls @ 75 mls/hr 11/06/16 05:30 11/07/16 00:53 Lactated Ringer's IV 75 mls/hr .[id number] ANA Administration Metoclopramide HCl 5 mg 11/02/16 16:30 11/07/16 06:47 Reglan IVP 5 mg ACHS ANA Administration Metoprolol Tartrate 12.5 mg 11/06/16 18:00 11/06/16 18:34 Lopressor PO 12.5 mg BID ANA Administration Pantoprazole Sodium 40 mg 11/07/16 10:00 Protonix Inj IVP DAILY ANA Rosuvastatin Calcium 20 mg 11/06/16 22:00 11/06/16 22:00 Crestor PO 20 mg HS ANA Administration Zolpidem Tartrate 5 mg 11/05/16 21:30 11/07/16 00:49 Ambien PO 5 mg HS PRN Administration Insomnia - Patient Studies Lab Studies: Lab Studies 11/07/16 11/06/16 11/06/16 Range/Units 06:21 17:37 06:28 WBC 12.2 H (4.8-10.8) K/uL RBC 3.03 L (4.40-5.90) Mil/uL Hgb 9.1 L 9.3 L (12.0-18.0) g/dL Hct 27.1 L 27.7 L (35.0-51.0) % MCV 89.4 (80.0-94.0) fL MCH 30.2 (27.0-31.0) pg MCHC 33.8 (33.0-37.0) g/dL RDW 15.6 H (11.5-14.5) % Plt Count 148 (130-400) K/uL MPV 9.2 (7.2-11.7) fL Neut % (Auto) 69.2 (50.0-75.0) % Lymph % (Auto) 9.6 L (20.0-40.0) % Coos % (Auto) 15.6 H (0.0-10.0) % Eos % (Auto) 5.0 H (0.0-4.0) % Baso % (Auto) 0.6 (0.0-2.0) % Neut # 8.5 H (1.8-7.0) K/uL Lymph # 1.2 (1.0-4.3) K/uL Coos # 1.9 H (0.0-0.8) K/uL Eos # 0.6 (0.0-0.7) K/uL Baso # 0.1 (0.0-0.2) K/uL Neutrophils % (Manual) 70 (50-75) % Band Neutrophils % 1 (0-2) % Lymphocytes % (Manual) 9 L (20-40) % Reactive Lymphs % 2 H (0-0) % Monocytes % (Manual) 13 H (0-10) % Eosinophils % (Manual) 5 H (0-4) % Platelet Estimate Normal (NORMAL) Polychromasia Slight Poikilocytosis (manual Slight Anisocytosis (manual) Slight Microcytosis (manual) Slight Macrocytosis (manual) Slight Tear Drop Cells Slight Ovalocytes Slight Sodium 140 (132-148) mmol/L Potassium 3.6 (3.6-5.2) mmol/L Chloride 106 (98-107) mmol/L Carbon Dioxide 26 (22-30) mmol/L Anion Gap 12 (10-20) BUN 19 (9-20) mg/dL Creatinine 1.0 (0.8-1.5) MG/DL Est GFR ( Amer) > 60 Est GFR (Non-Af Amer) > 60 Random Glucose 91 (75-110) mg/dL Calcium 7.3 L (8.6-10.4) mg/dl Phosphorus 2.7 (2.5-4.5) mg/dL Magnesium 1.9 (1.6-2.3) mg/dL Total Bilirubin 1.0 (0.2-1.3) mg/dL AST 44 (17-59) U/L ALT 36 (21-72) U/L Alkaline Phosphatase 39 (38-126) U/L Total Protein 4.7 L (6.3-8.3) g/dL Albumin 2.2 L (3.5-5.0) g/dL Globulin 2.4 (2.2-3.9) gm/dL Albumin/Globulin Ratio 0.9 L (1.0-2.1) Laboratory Results - last 24 hr 11/06/16 11/06/16 11/07/16 06:28 17:37 06:21 WBC 12.2 H RBC 3.03 L Hgb 9.3 L 9.1 L Hct 27.7 L 27.1 L MCV 89.4 MCH 30.2 MCHC 33.8 RDW 15.6 H Plt Count 148 MPV 9.2 Neut % (Auto) 69.2 Lymph % (Auto) 9.6 L Coos % (Auto) 15.6 H Eos % (Auto) 5.0 H Baso % (Auto) 0.6 Neut # 8.5 H Lymph # 1.2 Coos # 1.9 H Eos # 0.6 Baso # 0.1 Neutrophils % (Manual) 70 Band Neutrophils % 1 Lymphocytes % (Manual) 9 L Reactive Lymphs % 2 H Monocytes % (Manual) 13 H Eosinophils % (Manual) 5 H Platelet Estimate Normal Polychromasia Slight Poikilocytosis (manual Slight Anisocytosis (manual) Slight Microcytosis (manual) Slight Macrocytosis (manual) Slight Tear Drop Cells Slight Ovalocytes Slight Sodium 140 Potassium 3.6 Chloride 106 Carbon Dioxide 26 Anion Gap 12 BUN 19 Creatinine 1.0 Est GFR ( Amer) > 60 Est GFR (Non-Af Amer) > 60 Random Glucose 91 Calcium 7.3 L Phosphorus 2.7 Magnesium 1.9 Total Bilirubin 1.0 AST 44 ALT 36 Alkaline Phosphatase 39 Total Protein 4.7 L Albumin 2.2 L Globulin 2.4 Albumin/Globulin Ratio 0.9 L Critical Care Progress Note - Nutrition Nutrition: Nutrition Category Date Time Status Liquid Diet [DIET] Diets 11/06/16 Lunch Active <Harris Albarran - Last Filed: 11/07/16 15:42> CCU Subjective - Physician Review Events Since Last Encounter (Free Text): 11/07/16 15:41 Patient is 86-year-old male with history of hypertension CAD and status post a CABG Admitted to the hospital ICU secondary to GI bleed. Patient has a large amount of massive bleeding, and he received a large amount of blood transfusion. Patient developed acute CT secondary to GI bleed and anemia and stress. Since last 24 was his bleeding is significantly reduced. He is feeling good. Receiving Lasix. 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 Patient will be getting the frequent CBC monitoring, and hemoglobin monitoring, and bleeding. Patient is not a candidate for surgical intervention at this time given the high risk of acute CT. Overall prognosis very poor and will follow the patient CCU Objective - Vital Signs / Intake & Output Vital Signs (Last 4 hours): Vital Signs Temp Pulse Resp BP Pulse Ox 11/07/16 14:10 72 33 H 149/65 98 11/07/16 13:10 75 12 108/52 L 91 L 11/07/16 12:09 72 38 H 103/52 L 97 11/07/16 12:00 98.8 F Intake and Output (Last 8hrs): Intake & Output 11/07/16 11/07/16 11/07/16 06:59 14:59 22:59 Intake Total 660 925 0 Output Total 220 780 100 Balance 440 145 -100 Weight 219 lb Intake: Intake, IV Amount 600 325 Right Medial Port 600 325 Internal Jugular Oral 60 600 0 Output: Urine 220 730 100 Urine, Voided 150 100 Urethral (Jones) 220 580 Stool 50 Other: # Voids Urine, Voided 1 1 # Bowel Movements 1 - Medications Active Medications: Active Medications Generic Name Dose Route Start Last Admin Trade Name Freq PRN Reason Stop Dose Admin Metronidazole 100 mls @ 100 mls/hr 11/02/16 21:00 11/07/16 13:29 Flagyl IVPB 100 mls/hr Q8 ANA Administration Metoprolol Tartrate 12.5 mg 11/06/16 18:00 11/07/16 10:11 Lopressor PO 12.5 mg BID ANA Administration Pantoprazole Sodium 40 mg 11/07/16 10:00 11/07/16 10:11 Protonix Inj IVP 40 mg DAILY ANA Administration Rosuvastatin Calcium 20 mg 11/06/16 22:00 11/06/16 22:00 Crestor PO 20 mg HS ANA Administration Zolpidem Tartrate 5 mg 11/05/16 21:30 11/07/16 00:49 Ambien PO 5 mg HS PRN Administration Insomnia - Patient Studies Lab Studies: Lab Studies 11/07/16 11/07/16 11/06/16 Range/Units 14:51 06:21 17:37 WBC 10.9 H 12.2 H (4.8-10.8) K/uL RBC 2.99 L 3.03 L (4.40-5.90) Mil/uL Hgb 8.9 L 9.1 L 9.3 L (12.0-18.0) g/dL Hct 26.7 L 27.1 L 27.7 L (35.0-51.0) % MCV 89.3 89.4 (80.0-94.0) fL MCH 29.7 30.2 (27.0-31.0) pg MCHC 33.3 33.8 (33.0-37.0) g/dL RDW 15.4 H 15.6 H (11.5-14.5) % Plt Count 148 148 (130-400) K/uL MPV 8.5 9.2 (7.2-11.7) fL Neut % (Auto) 68.7 69.2 (50.0-75.0) % Lymph % (Auto) 10.2 L 9.6 L (20.0-40.0) % Coos % (Auto) 15.2 H 15.6 H (0.0-10.0) % Eos % (Auto) 5.2 H 5.0 H (0.0-4.0) % Baso % (Auto) 0.7 0.6 (0.0-2.0) % Neut # 7.5 H 8.5 H (1.8-7.0) K/uL Lymph # 1.1 1.2 (1.0-4.3) K/uL Coos # 1.7 H 1.9 H (0.0-0.8) K/uL Eos # 0.6 0.6 (0.0-0.7) K/uL Baso # 0.1 0.1 (0.0-0.2) K/uL Neutrophils % (Manual) 73 (50-75) % Band Neutrophils % 1 (0-2) % Lymphocytes % (Manual) 11 L (20-40) % Reactive Lymphs % 1 H (0-0) % Monocytes % (Manual) 6 (0-10) % Eosinophils % (Manual) 8 H (0-4) % Platelet Estimate Normal (NORMAL) Polychromasia Slight Anisocytosis (manual) Slight Sodium 140 140 (132-148) mmol/L Potassium 3.2 L 3.6 (3.6-5.2) mmol/L Chloride 103 106 (98-107) mmol/L Carbon Dioxide 28 26 (22-30) mmol/L Anion Gap 12 12 (10-20) BUN 16 19 (9-20) mg/dL Creatinine 1.0 1.0 (0.8-1.5) MG/DL Est GFR ( Amer) > 60 > 60 Est GFR (Non-Af Amer) > 60 > 60 Random Glucose 110 91 (75-110) mg/dL Calcium 7.1 L 7.3 L (8.6-10.4) mg/dl Phosphorus 2.7 (2.5-4.5) mg/dL Magnesium 1.9 (1.6-2.3) mg/dL Total Bilirubin 0.8 1.0 (0.2-1.3) mg/dL AST 36 44 (17-59) U/L ALT 37 36 (21-72) U/L Alkaline Phosphatase 38 39 (38-126) U/L Total Creatine Kinase 155 (55-170) U/L Total Protein 4.6 L 4.7 L (6.3-8.3) g/dL Albumin 2.2 L 2.2 L (3.5-5.0) g/dL Globulin 2.5 2.4 (2.2-3.9) gm/dL Albumin/Globulin Ratio 0.9 L 0.9 L (1.0-2.1) Laboratory Results - last 24 hr 11/06/16 11/07/16 11/07/16 17:37 06:21 14:51 WBC 12.2 H 10.9 H RBC 3.03 L 2.99 L Hgb 9.3 L 9.1 L 8.9 L Hct 27.7 L 27.1 L 26.7 L MCV 89.4 89.3 MCH 30.2 29.7 MCHC 33.8 33.3 RDW 15.6 H 15.4 H Plt Count 148 148 MPV 9.2 8.5 Neut % (Auto) 69.2 68.7 Lymph % (Auto) 9.6 L 10.2 L Coos % (Auto) 15.6 H 15.2 H Eos % (Auto) 5.0 H 5.2 H Baso % (Auto) 0.6 0.7 Neut # 8.5 H 7.5 H Lymph # 1.2 1.1 Coos # 1.9 H 1.7 H Eos # 0.6 0.6 Baso # 0.1 0.1 Neutrophils % (Manual) 73 Band Neutrophils % 1 Lymphocytes % (Manual) 11 L Reactive Lymphs % 1 H Monocytes % (Manual) 6 Eosinophils % (Manual) 8 H Platelet Estimate Normal Polychromasia Slight Anisocytosis (manual) Slight Sodium 140 140 Potassium 3.6 3.2 L Chloride 106 103 Carbon Dioxide 26 28 Anion Gap 12 12 BUN 19 16 Creatinine 1.0 1.0 Est GFR ( Amer) > 60 > 60 Est GFR (Non-Af Amer) > 60 > 60 Random Glucose 91 110 Calcium 7.3 L 7.1 L Phosphorus 2.7 Magnesium 1.9 Total Bilirubin 1.0 0.8 AST 44 36 ALT 36 37 Alkaline Phosphatase 39 38 Total Creatine Kinase 155 Total Protein 4.7 L 4.6 L Albumin 2.2 L 2.2 L Globulin 2.4 2.5 Albumin/Globulin Ratio 0.9 L 0.9 L Critical Care Progress Note - Nutrition Nutrition: Nutrition Category Date Time Status Liquid Diet [DIET] Diets 11/06/16 Lunch Active
[2016-11-07 09:05] LABS: EOSINOPHIL 8 % (0-4); NEUTROPHIL 73 % (50-75); REACTIVE LYMPHOCYTES 1 % (0-0); TOTAL CELLS COUNTED 100
--- NOTE | 2016-11-07 10:00 | CP.PCM.PN ---
Subjective - Date & Time of Evaluation Date of Evaluation: 11/07/16 Time of Evaluation: 09:57 - Subjective Subjective: Pt has raspy cough Objective - Vital Signs/Intake and Output Vital Signs (last 24 hours): Temp Pulse Resp BP Pulse Ox 100 F H 86 18 132/66 90 L 11/07/16 00:00 11/07/16 07:00 11/07/16 07:00 11/07/16 07:09 11/07/16 07:00 Intake and Output: 11/07/16 11/07/16 06:59 18:59 Intake Total 1030 75 Output Total 310 Balance 720 75 - Medications Medications: Current Medications Metronidazole (Flagyl) 100 mls @ 100 mls/hr IVPB Q8 [facility] Last Admin: 11/07/16 05:31 Dose: 100 mls/hr Lactated Ringer's (Lactated Ringer's) 1,000 mls @ 75 mls/hr IV .[id number] [facility] Last Admin: 11/07/16 00:53 Dose: 75 mls/hr Metoclopramide HCl (Reglan) 5 mg IVP ACHS [facility] Last Admin: 11/07/16 06:47 Dose: 5 mg Metoprolol Tartrate (Lopressor) 12.5 mg PO BID ANA Last Admin: 11/06/16 18:34 Dose: 12.5 mg Pantoprazole Sodium (Protonix Inj) 40 mg IVP DAILY ANA Rosuvastatin Calcium (Crestor) 20 mg PO HS ANA Last Admin: 11/06/16 22:00 Dose: 20 mg Zolpidem Tartrate (Ambien) 5 mg PO HS PRN PRN Reason: Insomnia Last Admin: 11/07/16 00:49 Dose: 5 mg - Labs Labs: 11/07/16 06:21 11/07/16 06:21 PT 15.4 SECONDS (9.7-12.2) H 11/05/16 15:29 INR 1.4 11/05/16 15:29 APTT 28 SECONDS (21-34) 11/03/16 17:40 - Constitutional Appears: Well - Head Exam Head Exam: NORMAL INSPECTION - Eye Exam Eye Exam: EOMI Pupil Exam: NORMAL ACCOMODATION - ENT Exam ENT Exam: Mucous Membranes Moist - Neck Exam Neck Exam: Full ROM, Normal Inspection - Respiratory Exam Respiratory Exam: Wheezes - Cardiovascular Exam Cardiovascular Exam: REGULAR RHYTHM - GI/Abdominal Exam GI & Abdominal Exam: Normal Bowel Sounds - Extremities Exam Extremities Exam: Full ROM, Normal Inspection - Back Exam Back Exam: NORMAL INSPECTION - Neurological Exam Neurological Exam: Alert, Awake, CN II-XII Intact, Oriented x3 - Psychiatric Exam Psychiatric exam: Normal Affect, Normal Mood - Skin Skin Exam: Normal Color Assessment and Plan - Assessment and Plan (Free Text) Assessment: 1. Pt has apparently stopped bleeding, Hgb stable, no bm. 2 Pt has been receiving ringers iv. He may have gone into heart failure. stop IV. lasix 20 mgIV once. As he is wheezing, I will not start beta naila right now.Await cxr. 3. Statin ordered.
--- NOTE | 2016-11-07 10:02 | CP.PCM.PN ---
Subjective - Date & Time of Evaluation Date of Evaluation: 11/07/16 Time of Evaluation: 09:58 - Subjective Subjective: General Surgery - Dr. Higgins Pt S&E. Pt had 1 episode dark stool last night, otherwise no further BM. He denies any abdominal pain, sob/cp. Pt states he wishes to eat more. Objective - Vital Signs/Intake and Output Vital Signs (last 24 hours): Temp Pulse Resp BP Pulse Ox 100 F H 86 18 132/66 90 L 11/07/16 00:00 11/07/16 07:00 11/07/16 07:00 11/07/16 07:09 11/07/16 07:00 Intake and Output: 11/07/16 11/07/16 06:59 18:59 Intake Total 1030 75 Output Total 310 Balance 720 75 - Medications Medications: Current Medications Metronidazole (Flagyl) 100 mls @ 100 mls/hr IVPB Q8 [facility] Last Admin: 11/07/16 05:31 Dose: 100 mls/hr Lactated Ringer's (Lactated Ringer's) 1,000 mls @ 75 mls/hr IV .[id number] [facility] Last Admin: 11/07/16 09:56 Dose: Not Given Metoclopramide HCl (Reglan) 5 mg IVP ACHS [facility] Last Admin: 11/07/16 06:47 Dose: 5 mg Metoprolol Tartrate (Lopressor) 12.5 mg PO BID [facility] Last Admin: 11/06/16 18:34 Dose: 12.5 mg Pantoprazole Sodium (Protonix Inj) 40 mg IVP DAILY ANA Rosuvastatin Calcium (Crestor) 20 mg PO HS [facility] Last Admin: 11/06/16 22:00 Dose: 20 mg Zolpidem Tartrate (Ambien) 5 mg PO HS PRN PRN Reason: Insomnia Last Admin: 11/07/16 00:49 Dose: 5 mg - Labs Labs: 11/07/16 06:21 11/07/16 06:21 PT 15.4 SECONDS (9.7-12.2) H 11/05/16 15:29 INR 1.4 11/05/16 15:29 APTT 28 SECONDS (21-34) 11/03/16 17:40 - Constitutional Appears: No Acute Distress - Head Exam Head Exam: ATRAUMATIC, NORMOCEPHALIC - Respiratory Exam Respiratory Exam: NORMAL BREATHING PATTERN. absent: Respiratory Distress - Cardiovascular Exam Cardiovascular Exam: REGULAR RHYTHM - GI/Abdominal Exam GI & Abdominal Exam: Soft. absent: Distended, Tenderness - Neurological Exam Neurological Exam: Alert, Oriented x3 - Skin Skin Exam: Dry, Intact Assessment and Plan - Assessment and Plan (Free Text) Assessment: 86 M w/ acute lower GI bleed, and acute OH -Continue to Monitor H&H, transfuse prn -Monitor bowel movements -Clear liquid diet and supplements -Care as per cardiac team -If pt. continues to bleed may require surgery once medically optimized -Felice King, PGy2
--- NOTE | 2016-11-07 13:14 | CT ---
PROCEDURE: CT Angiography Abdomen, Pelvis and Lower Extremity with Contrast HISTORY: rectal bleeding COMPARISON: None. TECHNIQUE: Technique: CT angiography of the abdomen, pelvis and bilateral lower extremities performed in the arterial phase of enhancement. Coronal and sagittal reformats, and well as rotating MIP images of the vessels generated at the workstation. Intravenous contrast dose: 150 milliliters Visipaque 320 Radiation dose: Total exam DLP = 976.18 MGy-cm. FINDINGS: CT ANGIOGRAPHY: ABDOMINAL AORTA:: Moderate calcific plaque throughout the abdominal aorta. No aneurysm or stenosis. MAJOR AORTIC BRANCHES: Celiac [place]: Significant calcific plaque at the origin of the celiac artery. Celiac artery otherwise unremarkable. Superior mesenteric artery:Significant calcific plaque at the origin with 30 percent stenosis. Inferior mesenteric artery: Significant calcific plaque at the origin with no significant stenosis. Renal arteries: Unremarkable. PELVIC ARTERIES: Right Common Iliac: Unremarkable. Right External Iliac: Unremarkable. Right Internal Iliac: Unremarkable. Left Common Iliac: Unremarkable. Left External Iliac: Unremarkable. Left Internal Iliac: Unremarkable. RIGHT LOWER EXTREMITY ARTERIES: Right Common Femoral: Significance of plaque with no aneurysm. Right Superficial Femoral: Proximal SFA is heavily calcified but patent. Right Profunda Femoris: Visualized proximal profunda is heavily calcified and patent. LEFT LOWER EXTREMITY ARTERIES: Left Common Femoral: Heavily calcified with no aneurysm or stenosis. Left Superficial Femoral: Visualized proximal SFA segment is heavily calcified and patent. Left Profunda Femoris: Visualized proximal profunda femoral artery is heavily calcified and patent. NON-ANGIOGRAPHIC ASPECT OF THE EXAM: LOWER THORAX: Small bilateral pleural effusions. LIVER: Unremarkable. No gross lesion or ductal dilatation. GALLBLADDER AND BILE DUCTS: Cholecystectomy. Dilated CBD. PANCREAS: Unremarkable. No gross lesion or ductal dilatation. SPLEEN: Unremarkable. ADRENALS: Unremarkable. No mass. KIDNEYS AND URETERS: Unremarkable. No hydronephrosis. No solid mass. STOMACH AND BOWEL: High-density fluid throughout the ileum and large bowel. Unclear if high-density fluid is bleeding versus residual barium that has been dilated. There is no extravasation of contrast seen within the small or large bowel indicative of an active GI bleed. APPENDIX: Not visualized PERITONEUM: Unremarkable. No free fluid. No free air. LYMPH NODES: Unremarkable. No enlarged lymph nodes. BLADDER: Jones in place. Contrast within bladder. REPRODUCTIVE: BONES: No acute fracture. OTHER FINDINGS: None. IMPRESSION: CT angiogram of the abdomen pelvis for purposes of GI bleed did not show any active extravasation of contrast that would be indicative of a active GI bleed. There is high density fluid throughout the ileum and the colon. It is unclear if this is related to residual barium from study three days ago or more likely the recent GI bleed with IV contrast. High density fluid also extends into the small bowel which raises possibility of a small bowel bleed.
[2016-11-07 14:59] LABS: BASO # 0.1 K/uL (0.0-0.2); BASO % 0.7 % (0.0-2.0); EOS # 0.6 K/uL (0.0-0.7); EOS % 5.2 % (0.0-4.0); HEMATOCRIT 26.7 % (35.0-51.0); LYMPH # 1.1 K/uL (1.0-4.3); LYMPH % 10.2 % (20.0-40.0); MEAN CELL VOLUME 89.3 fL (80.0-94.0); MEAN CORPUSCULAR HEMOGLOBIN 29.7 pg (27.0-31.0); MEAN CORPUSCULAR HGB CONC 33.3 g/dL (33.0-37.0); MEAN PLATELET VOLUME 8.5 fL (7.2-11.7); MONO # 1.7 K/uL (0.0-0.8); MONO % 15.2 % (0.0-10.0); RED CELL DISTRIBUTION WIDTH 15.4 % (11.5-14.5); WHITE BLOOD COUNT 10.9 K/uL (4.8-10.8)
[2016-11-07 15:09] LABS: CHLORIDE 103 mmol/L (98-107); POTASSIUM 3.2 mmol/L (3.6-5.2); SODIUM 140 mmol/L (132-148)
[2016-11-07 15:11] LABS: GFR AFRICAN-AMERICAN > 60
[2016-11-07 15:12] LABS: ALB/GLOB RATIO 0.9 (1.0-2.1); ALKALINE PHOSPHATASE 38 U/L (38-126); ALT/SGPT 37 U/L (21-72); AST/SGOT 36 U/L (17-59); BILIRUBIN,TOTAL 0.8 mg/dL (0.2-1.3); BLOOD UREA NITROGEN 16 mg/dL (9-20); CALCIUM 7.1 mg/dl (8.6-10.4); CARBON DIOXIDE 28 mmol/L (22-30); GLUCOSE,RANDOM 110 mg/dL (75-110); TOTAL PROTEIN 4.6 g/dL (6.3-8.3)
[2016-11-07] MEDS ORDERED: Potassium Chloride 20 mEq/15 ml LIQ UD PO ONE (16:00)
--- NOTE | 2016-11-07 16:00 | RAD ---
HISTORY: congestion COMPARISON: Comparison made with chest radiograph and CTA abdomen 11/05/2016 which did image both lung bases. . FINDINGS: LUNGS: Bilateral effusions and minor bibasilar atelectasis. 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 PLEURA: No significant pleural effusion identified, no pneumothorax apparent. CARDIOVASCULAR: Heart appears mildly enlarged. Sternotomy wires again noted. OSSEOUS STRUCTURES: No significant abnormalities. VISUALIZED UPPER ABDOMEN: Normal. OTHER FINDINGS: No change right IJ central venous line with tip in the SVC. IMPRESSION: Bilateral effusions and mild bibasilar atelectasis. Hyperinflation.
--- NOTE | 2016-11-07 18:56 | CP.PCM.PN ---
Subjective - Date & Time of Evaluation Date of Evaluation: 11/07/16 Time of Evaluation: 18:00 - Subjective Subjective: Reviewed previous notes from last week and also discussed with the staff. Since last week the patient has had 11 units of PRBCs. He was having a lot of rectal bleeding and last week had EGD as well as colonscopy. Likley diverticular in origin and the bleeding and anemia was such that he also had positive troponins - likely from demand ischemia. Today he explained this is the first day he has not had bleeding. He is a very good historian He denied chest pain, denied palpitations, denied shortness of breath, denied headache, denied blurry vision, denied abdominal pain - and as mentioned before denied bloody BMs today, he is tolerating the liquid diet he is being given at this time. Objective - Vital Signs/Intake and Output Vital Signs (last 24 hours): Temp Pulse Resp BP Pulse Ox 98.0 F 78 17 110/65 96 11/07/16 16:00 11/07/16 18:10 11/07/16 18:10 11/07/16 18:10 11/07/16 17:10 Intake and Output: 11/07/16 11/07/16 06:59 18:59 Intake Total 1030 1275 Output Total 310 980 Balance 720 295 - Medications Medications: Current Medications Metronidazole (Flagyl) 100 mls @ 100 mls/hr IVPB Q8 [facility] Last Admin: 11/07/16 13:29 Dose: 100 mls/hr Metoprolol Tartrate (Lopressor) 12.5 mg PO BID [facility] Last Admin: 11/07/16 17:44 Dose: 12.5 mg Pantoprazole Sodium (Protonix Inj) 40 mg IVP DAILY [facility] Last Admin: 11/07/16 10:11 Dose: 40 mg Rosuvastatin Calcium (Crestor) 20 mg PO HS [facility] Last Admin: 11/06/16 22:00 Dose: 20 mg Zolpidem Tartrate (Ambien) 5 mg PO HS PRN PRN Reason: Insomnia Last Admin: 11/07/16 00:49 Dose: 5 mg - Labs Labs: 11/07/16 14:51 11/07/16 14:51 PT 15.4 SECONDS (9.7-12.2) H 11/05/16 15:29 INR 1.4 11/05/16 15:29 APTT 28 SECONDS (21-34) 11/03/16 17:40 - Constitutional Appears: No Acute Distress - Head Exam Head Exam: NORMAL INSPECTION - Eye Exam Eye Exam: EOMI, Normal appearance - ENT Exam ENT Exam: Mucous Membranes Moist - Respiratory Exam Respiratory Exam: Clear to Ausculation Bilateral, NORMAL BREATHING PATTERN - Cardiovascular Exam Cardiovascular Exam: REGULAR RHYTHM - GI/Abdominal Exam GI & Abdominal Exam: Soft, Normal Bowel Sounds. absent: Distended, Firm, Guarding, Rigid, Tenderness - Neurological Exam Neurological Exam: Alert, Awake, Oriented x3 Neuro motor strength exam: Left Upper Extremity: 5, Right Upper Extremity: 5 - Psychiatric Exam Psychiatric exam: Normal Affect, Normal Mood - Skin Skin Exam: Pallor, Warm Assessment and Plan - Assessment and Plan (Free Text) Assessment: 1) Lower GI Bleed, Anemia, Hypotension 11/07: Today did not have any bloody BM. Hgb is currently 9.1. As mentioned before the patient has had numerous transfusions the previous week. Likely diverticular in origin, surgery is following and he may need surgical removal of the colon but due to his advance age as well as positive troponins it would be a high risk surgery. GI (Dr. Crouch) on the case; help appreciated EGD (11/02/16): medium sized hiatus hernia, acute gastritis; pathology negative for H Pylori Colonoscopy (11/03/16): non-bleeding internal hemorrhoids, severe diverticulosis in the entire examined colon, there was active bleeding coming from the diverticular opening, blood in the entire examined colon. Transferred to ICU on 11/02/16; has need multiple transfusions including PRBC and FFP during hospitalization CT Abdomen/Pelvis (11/01/16): diverticulosis without definite CT evidence of diverituclitis; moderate to entensive disease of visualized arteries. no arotic aneurysm Bleeding Scan (11/02/16): findings suspicious for a focus of active GI bleeding in the pelvis, most likely to sigmoid colon Mesenteric angiogram (11/04/16): no evidence of GI bleed SMA or ÁNGELA. Selective catherization catherization of ÁNGELA shows no bleed General surgery (Dr. Allan)- on the case; help appreciated General surgery (Dr. Higgins, who had completed patient's cholecystectomy in the past)--> indicated in his consult noted, should have surgery to remove his colon, but in light of cardiac events including elevated troponin however the risks of proceeding with any surgical intervention at this time are higher in light of patient having an acute myocardial event, and recommending aggressive support care and to prevent hemoglobin from falling 2) Nonstemi CT, Demand Ischemia 11/07: currenlty no C/P, breathing is ok. Likley demand ischemia contributing to the positive troponins. If Hgb drops he may need further transfusions History of known coronary artery disease s/p CABG Cardiology Consult: Dr Holt on board off aspirin and anticoagulation secondary to acute blood loss secondary to lower GI bleed No plans for cardiac catherization because is high risk for bleeding; unless he develops decompensated heart failure or hemodynamic unstable in setting of ACS per cardio note Started on Lopressor 12.5mg PO bid per cardiology Crestor 20mg PO qHS Troponins: 0.9980, 2.5800, 6.800, demand ischemia secondary to GI bleed 3) Acute Renal insufficency Resolved 4) Abnormal urinalysis urine culture No growth (was on Rocephin 11/01-11/06) UA showed both esterase and pyuria 5) CAD History of known coronary artery disease s/p CABG Cardiology Consult: Dr Holt on board off aspirin and anticoagulation secondary to acute blood loss secondary to lower GI bleed No plans for cardiac catherization because is high risk for bleeding; unless he develops decompensated heart failure or hemodynamic unstable in setting of ACS per cardio note Started on Lopressor 12.5mg PO bid per cardiology Crestor 20mg PO qHS Echocardiogram (11/03/16): left ventricle systolic function is normal, mild valvular aortic stenosis (official findings per EMR) 6) History of COPD Patient is not in acute exacerbation. Patient is a current smoker; not actively smoking while in hospitalization Chest Xray (11/05/16): bilateral effusion right larger than left. mild bibasilar atelectasis, central pulmonary vasculature is slightly increased suggesting mild venous congestion 7) Prophylactic Care GI ppx: Protonix 40mg IV Q 12hours VTE ppx contraindcation secondary to acute GI bleed
[2016-11-07] MEDS: Aritificial Tears (15ml) OU SCH (21:05)
[2016-11-07] MEDS: guaiFENesin DM 100 mg-10 mg/5 ml UD PO PRN (23:37)
[2016-11-08] MEDS: guaiFENesin DM 100 mg-10 mg/5 ml UD PO PRN (03:57)
[2016-11-08 04:51] LABS: BASO # 0.1 K/uL (0.0-0.2); BASO % 0.7 % (0.0-2.0); EOS # 0.7 K/uL (0.0-0.7); EOS % 6.4 % (0.0-4.0); HEMATOCRIT 27.4 % (35.0-51.0); LYMPH # 1.4 K/uL (1.0-4.3); LYMPH % 12.6 % (20.0-40.0); MEAN CELL VOLUME 90.3 fL (80.0-94.0); MEAN CORPUSCULAR HEMOGLOBIN 30.2 pg (27.0-31.0); MEAN CORPUSCULAR HGB CONC 33.5 g/dL (33.0-37.0); MEAN PLATELET VOLUME 9.2 fL (7.2-11.7); MONO # 1.5 K/uL (0.0-0.8); MONO % 13.1 % (0.0-10.0); RED CELL DISTRIBUTION WIDTH 15.4 % (11.5-14.5); WHITE BLOOD COUNT 11.2 K/uL (4.8-10.8)
[2016-11-08 05:10] LABS: CHOLESTEROL 69 mg/dL (0-199)
--- NOTE | 2016-11-08 08:07 | CP.PCM.PN ---
Subjective - Date & Time of Evaluation Date of Evaluation: 11/08/16 Time of Evaluation: 07:45 - Subjective Subjective: General Surgery Pt S&E, NAEO. No recent bloody BMs. Pt wants to be more active. Mentioned some dizziness when moving to quickly. Reports some wheezing but no SOB. Objective - Vital Signs/Intake and Output Vital Signs (last 24 hours): Temp Pulse Resp BP Pulse Ox 97.8 F 70 37 H 119/55 L 93 L 11/08/16 04:00 11/08/16 07:21 11/08/16 07:21 11/08/16 07:21 11/08/16 07:21 Intake and Output: 11/08/16 11/08/16 06:59 18:59 Intake Total 625 Output Total 675 Balance -50 - Medications Medications: Current Medications Artificial Tears (Artificial Tears) [address] [facility] Last Admin: 11/07/16 21:05 Dose: 2 drop Guaifenesin/Dextromethorphan (Robitussin Dm) 5 ml PO Q4H PRN PRN Reason: Cough Last Admin: 11/08/16 03:57 Dose: 5 ml Metoprolol Tartrate (Lopressor) 12.[address] [facility] Last Admin: 11/07/16 17:44 Dose: 12.5 mg Pantoprazole Sodium (Protonix Inj) [address] [facility] Last Admin: 11/07/16 10:11 Dose: 40 mg Rosuvastatin Calcium (Crestor) [address] [facility] Last Admin: 11/07/16 22:26 Dose: 20 mg Zolpidem Tartrate (Ambien) 5 mg PO HS PRN PRN Reason: Insomnia Last Admin: 11/08/16 00:59 Dose: 5 mg - Labs Labs: 11/08/16 04:47 11/07/16 14:51 PT 15.4 SECONDS (9.7-12.2) H 11/05/16 15:29 INR 1.4 11/05/16 15:29 APTT 28 SECONDS (21-34) 11/03/16 17:40 - Constitutional Appears: Non-toxic, No Acute Distress - Head Exam Head Exam: ATRAUMATIC, NORMOCEPHALIC - Eye Exam Eye Exam: EOMI. absent: Scleral icterus - Respiratory Exam Respiratory Exam: NORMAL BREATHING PATTERN. absent: Respiratory Distress - GI/Abdominal Exam GI & Abdominal Exam: Soft. absent: Distended, Tenderness - Neurological Exam Neurological Exam: Alert, Awake - Skin Skin Exam: Dry, Warm Assessment and Plan - Assessment and Plan (Free Text) Assessment: 86 M w/ acute lower GI bleed, and acute [place] Plan: -Continue to Monitor H&H, currently stable @ 9.2 -Monitor bowel movements -Clear liquid diet and supplements -Care as per cardiac team -If pt. continues to bleed may require surgery once medically optimized -D/W Dr. Ronaldo Artis PGY3
--- NOTE | 2016-11-08 08:35 | CP.CCUPN ---
<Emmanuel Guerra - Last Filed: 11/08/16 15:04> CCU Subjective - Physician Review Subjective (Free Text): 11/03/16 18:49 Patient seen and examined at bedside in no acute distress. The patient is saturating well on room air. Patient is conversing well and admits to an episode of BM with noted blood (black tarry) yesterday night. Patient admits to intermittent dizzying spells intermittently through the day today. Patient admits to abdominal pain in the right and left lower quadrants. Colonoscopy scheduled for 12:30 pm today with inconclusive findings due to actively bleeding diverticuli. Patient later transfused 2 additional units of PRBC with 1 unit FFP with repeat bloodwork. Otherwise, patient denied headaches, nausea, vomiting, paresthesias, visual changes, urinary changes dyspnea, palpitations, or chest pain a this time. 11/04/16 10:13 Pt seen and examined in no acute distress. Vitals stable overnight per nursing. patient received 2 units of PRBC and 1 unit FFP overnight. Patient did not have any events of hematochezia overnight but have one event early this morning per nursing. Patient will receive another 1 unit PRBC this morning. Patient to have colonoscopy per GI. At this point patient denies subjective fevers or chills, headaches, nausea, vomiting, paresthesias, chest pain, palpitations at this time. 11/08/16 14:51 Pt seen and examined in no acute distress. Patient has been congested for the past few days with sputum production that is white/abdalla in character. Patient denies having a bowel movement overnight. No hematochezia. Patient is stable and denies any changes in bowel movement and urination, subjective fevers or chills, chest pain, palpitations, or dyspnea at this time. CCU Objective - Vital Signs / Intake & Output Vital Signs (Last 4 hours): Vital Signs Pulse Resp BP Pulse Ox 11/08/16 07:21 70 37 H 119/55 L 93 L 11/08/16 07:00 71 34 H 96 11/08/16 06:56 72 34 H 109/51 L 96 11/08/16 05:22 72 33 H 109/51 L 95 11/08/16 05:00 71 31 H 96 Intake and Output (Last 8hrs): Intake & Output 11/07/16 11/08/16 11/08/16 22:59 06:59 14:59 Intake Total 775 200 Output Total 200 675 Balance 575 -475 Weight 216 lb 8 oz Intake: Intake, IV Amount 100 Right Proximal Port 100 Internal Jugular Oral 675 200 Output: Urine 200 675 Urine, Voided 200 675 Other: # Voids Urine, Voided 1 - Physical Exam Head: Positive for: Atraumatic, Normocephalic Pupils: Positive for: PERRL Extroacular Muscles: Positive for: EOMI Ears: Positive for: Normal Mouth: Positive for: Moist Mucous Membranes Nose (External): Positive for: Atraumatic Nose (Internal): Positive for: Normal Inspection Neck: Positive for: Normal Range of Motion Respiratory/Chest: Positive for: Clear to Auscultation. Negative for: Wheezes Cardiovascular: Positive for: Normal S1, S2 Abdomen: Positive for: Distention, Normal Bowel Sounds Back: Positive for: Normal Inspection Lower Extremity: Positive for: Normal ROM Neurological: Positive for: CN II-XII Intact, Speech Normal Skin: Positive for: Warm, Dry Psychiatric: Positive for: Alert, Oriented x 3, Anxious - Medications Active Medications: Active Medications Generic Name Dose Route Start Last Admin Trade Name Freq PRN Reason Stop Dose Admin Artificial Tears 0 ml 11/07/16 21:00 11/07/16 21:05 Artificial Tears OU 2 drop BID ANA Administration Guaifenesin/Dextromethorphan 5 ml 11/07/16 20:00 11/08/16 03:57 Robitussin Dm PO 5 ml Q4H PRN Administration Cough Metoprolol Tartrate 12.5 mg 11/06/16 18:00 11/07/16 17:44 Lopressor PO 12.5 mg BID ANA Administration Pantoprazole Sodium 40 mg 11/07/16 10:00 11/07/16 10:11 Protonix Inj IVP 40 mg DAILY ANA Administration Rosuvastatin Calcium 20 mg 11/06/16 22:00 11/07/16 22:26 Crestor PO 20 mg HS ANA Administration Zolpidem Tartrate 5 mg 11/05/16 21:30 11/08/16 00:59 Ambien PO 5 mg HS PRN Administration Insomnia - Patient Studies Lab Studies: Lab Studies 11/08/16 11/07/16 11/07/16 Range/Units 04:47 14:51 06:21 WBC 11.2 H 10.9 H (4.8-10.8) K/uL RBC 3.04 L 2.99 L (4.40-5.90) Mil/uL Hgb 9.2 L 8.9 L (12.0-18.0) g/dL Hct 27.4 L 26.7 L (35.0-51.0) % MCV 90.3 89.3 (80.0-94.0) fL MCH 30.2 29.7 (27.0-31.0) pg MCHC 33.5 33.3 (33.0-37.0) g/dL RDW 15.4 H 15.4 H (11.5-14.5) % Plt Count 146 148 (130-400) K/uL MPV 9.2 8.5 (7.2-11.7) fL Neut % (Auto) 67.2 68.7 (50.0-75.0) % Lymph % (Auto) 12.6 L 10.2 L (20.0-40.0) % Elmore % (Auto) 13.1 H 15.2 H (0.0-10.0) % Eos % (Auto) 6.4 H 5.2 H (0.0-4.0) % Baso % (Auto) 0.7 0.7 (0.0-2.0) % Neut # 7.6 H 7.5 H (1.8-7.0) K/uL Lymph # 1.4 1.1 (1.0-4.3) K/uL Elmore # 1.5 H 1.7 H (0.0-0.8) K/uL Eos # 0.7 0.6 (0.0-0.7) K/uL Baso # 0.1 0.1 (0.0-0.2) K/uL Neutrophils % (Manual) 73 (50-75) % Band Neutrophils % 1 (0-2) % Lymphocytes % (Manual) 11 L (20-40) % Reactive Lymphs % 1 H (0-0) % Monocytes % (Manual) 6 (0-10) % Eosinophils % (Manual) 8 H (0-4) % Platelet Estimate Normal (NORMAL) Polychromasia Slight Anisocytosis (manual) Slight Sodium 140 (132-148) mmol/L Potassium 3.2 L (3.6-5.2) mmol/L Chloride 103 (98-107) mmol/L Carbon Dioxide 28 (22-30) mmol/L Anion Gap 12 (10-20) BUN 16 (9-20) mg/dL Creatinine 1.0 (0.8-1.5) MG/DL Est GFR ( Amer) > 60 Est GFR (Non-Af Amer) > 60 Random Glucose 110 (75-110) mg/dL Calcium 7.1 L (8.6-10.4) mg/dl Total Bilirubin 0.8 (0.2-1.3) mg/dL AST 36 (17-59) U/L ALT 37 (21-72) U/L Alkaline Phosphatase 38 (38-126) U/L Total Creatine Kinase 155 (55-170) U/L CK-MB (Mass) 2.40 (0.0-3.38) ng/mL Troponin I 2.7800 H* (0.00-0.120) ng/mL Troponin I, Quant 3.4200 H* (0.00-0.120) ng/mL Total Protein 4.6 L (6.3-8.3) g/dL Albumin 2.2 L (3.5-5.0) g/dL Globulin 2.5 (2.2-3.9) gm/dL Albumin/Globulin Ratio 0.9 L (1.0-2.1) Triglycerides 58 D (0-149) mg/dL Cholesterol 69 (0-199) mg/dL LDL Cholesterol Direct 30 (0-129) mg/dL HDL Cholesterol 27 L (30-70) mg/dL Laboratory Results - last 24 hr 11/07/16 11/07/16 11/08/16 06:21 14:51 04:47 WBC 10.9 H 11.2 H RBC 2.99 L 3.04 L Hgb 8.9 L 9.2 L Hct 26.7 L 27.4 L MCV 89.3 90.3 MCH 29.7 30.2 MCHC 33.3 33.5 RDW 15.4 H 15.4 H Plt Count 148 146 MPV 8.5 9.2 Neut % (Auto) 68.7 67.2 Lymph % (Auto) 10.2 L 12.6 L Elmore % (Auto) 15.2 H 13.1 H Eos % (Auto) 5.2 H 6.4 H Baso % (Auto) 0.7 0.7 Neut # 7.5 H 7.6 H Lymph # 1.1 1.4 Elmore # 1.7 H 1.5 H Eos # 0.6 0.7 Baso # 0.1 0.1 Neutrophils % (Manual) 73 Band Neutrophils % 1 Lymphocytes % (Manual) 11 L Reactive Lymphs % 1 H Monocytes % (Manual) 6 Eosinophils % (Manual) 8 H Platelet Estimate Normal Polychromasia Slight Anisocytosis (manual) Slight Sodium 140 Potassium 3.2 L Chloride 103 Carbon Dioxide 28 Anion Gap 12 BUN 16 Creatinine 1.0 Est GFR ( Amer) > 60 Est GFR (Non-Af Amer) > 60 Random Glucose 110 Calcium 7.1 L Total Bilirubin 0.8 AST 36 ALT 37 Alkaline Phosphatase 38 Total Creatine Kinase 155 CK-MB (Mass) 2.40 Troponin I 2.7800 H* Troponin I, Quant 3.4200 H* Total Protein 4.6 L Albumin 2.2 L Globulin 2.5 Albumin/Globulin Ratio 0.9 L Triglycerides 58 D Cholesterol 69 LDL Cholesterol Direct 30 HDL Cholesterol 27 L Review of Systems - Review of Systems Review of Systems: noted in subjective Critical Care Progress Note - Nutrition Nutrition: Nutrition Category Date Time Status Liquid Diet [DIET] Diets 11/06/16 Lunch Active Assessment/Plan - Assessment and Plan (Free Text) Assessment: 86 year old male presents with a past medical history of CAD s/p CABG in 1992, HTN, COPD, venous insufficiency and diverticulosis, and constipation, who presented to the ED with complaints of dizziness and low blood pressure x2 days. Patient was admitted to the floor and completed an EGD (11/02), and had worsening symptoms of GI bleed/hematochezia and Hgb drop. Patient was admitted to ICU for observation of GI bleed. Patient is currently hemodynamically stable with a hemoglobin of 9.2 today. Patient is stable enough to be transferred to telemetry. Plan: Neuro: Neurocheck q4 Insomnia Zolpidem 5 mg PO HS PRN Cardio: Pt has no angina or evidence of acute ischemic syndrome. Patient does not have junctional rhythm. Patient has first degree AV block. This is no way to related to fatigue and dizziness. Troponin I, Quant 0.9980>2.5800>6.8100>3.4200 likely indicative of demand ischemia 11/08 Troponin I: 2.7800 11/05/16 EKG: accelerated junctional rhythm, nonspecific ST segment abnormality, septal infarct age undetermined 11/01/16 Echo: normal LV systolic function. EF >70%. Mild valvular aortic stenosis. No mitral valve regurgitation, mild tricuspid regurgitation, mild- moderate pulmonary hypertension, no pulmonic valvular regurgitation. 10/07/14 Echo: LV mild dilating, normal LV systolic function, normal LV segmental wall motion, increased LA Pressure, left LA mild-moderately dilated, normal RV systolic function, calcified aortic valve. Metoprolol 12.5 mg PO BID Rosuvastatin 20 mg PO HS ANA Lisinopril 2.5 mg PO daily Pulmonary: Maintain O2 Sat >92% Imagin/21 CXR: Persistent mild cardiomegaly and pulmonary venous congestion with no focal consolidation. 11/07 CXR: bilateral effusions and mild bibasilar atelectasis. hyperinflation 11/05 CXR: bilateral pleural effusions with Right > Left. Mild basilar atelectasis. Mild venous congestion. 11/02 CXR: mild venous congestion. Mild patchy bibasilar increased markings 11/01 CXR: Biapical pleural thickening with upper lobe granulomatous changes. Diffuse chronic increased interstitial lung markings with bild patchy left basilar airspace opacities. Guaifenesin/Dextromethorphan 5 cc PO Q4H PRN Endo: Maintain euglycemia GI: Monitor Bowel movements Clear Liquid Diet 11/[address] Higgins patient should have surgery to remove colon, but in light of cardiac events which include elevated troponin, the risk of proceeding with surgical intervention are higher. 11/[address] Crouch continue current management, follow up on invasive radiology procedure outcome. Blood transfusion to keep hemoglobin around 10 gram percent 11/[address] King PGY2 - D/w Dr. Allan. Transfusion PRN, H&H q4H, IR consulted for possible embolization with angiogram. Report: 11/05 CTA Abdomen/Pelvis: no active extravasation of contrast indicative of activ eGI bleed. High density fluid through ileum and colon. Unclear if it is related to residual barium from the study three days ago. High density fluid extends into small bowel, raises possibility of a small bowel bleed. 11/04 Mesenteric angiogram: no evidence of GI Bleed in the SMA and ÁNGELA. Selective catheterization of ÁNGELA shows no bleed 11/04 colonoscopy: bleeding diverticulosis, retained old blood and blood clots. f /u with tomorrow's colonoscopy with Dr. Crouch 11/02 - Bleeding scan site of bleeding is in the sigmoid colon Endoscopy report hiatal hernia, erosions and erythema found in gastric antrum , biopsies taken for H.pylori testing. Imagin/15 Colonoscopy: Estimated blood loss 20 cc. Post op diagnosis: hemorrhoids and active bleeding diverticulosis. Retained old blood and blood clots. 11/01 CT Abdomen/Pelvis: Diverticulosis without CT evidence of diverticulitis. : I/Os 1900/1655 = 245 Monitor I/Os Jones Removed Heme: H&H 9.2/27.4 Hemoglobin: 9.2 (9.5>9.4>9.3>9.1>8.9>9.2) Daily CBCs - stable Renal: BUN/Cr: 17/1.0 Monitor I/Os MSK: OOBTC ID: WBC: 11.2 (12.2>10.9>11.2) Positive stool leukocytes Daily CBCs Prophylaxis: DVT: chemcial anticoagulation, SCDs contraindicated d/t hematochezia and cellulitis of Left lower extremities GI: Pantoprazole 40 mg IVP Q12H Disp- Telemetry floor <Nic Jaramillo - Last Filed: 11/08/16 18:13> CCU Objective - Vital Signs / Intake & Output Vital Signs (Last 4 hours): Vital Signs Pulse Resp BP Pulse Ox 11/08/16 15:22 71 13 112/81 11/08/16 15:00 68 20 94 L Intake and Output (Last 8hrs): Intake & Output 11/08/16 11/08/16 11/08/16 06:59 14:59 22:59 Intake Total 200 490 120 Output Total 675 200 Balance -475 290 120 Weight 216 lb 8 oz Intake: Oral 200 490 120 Output: Urine 675 200 Urine, Voided 675 200 - Medications Active Medications: Active Medications Generic Name Dose Route Start Last Admin Trade Name Freq PRN Reason Stop Dose Admin Artificial Tears 0 ml 11/07/16 21:00 11/08/16 09:55 Artificial Tears OU 1 drop BID ANA Administration Guaifenesin/Dextromethorphan 5 ml 11/07/16 20:00 11/08/16 03:57 Robitussin Dm PO 5 ml Q4H PRN Administration Cough Lisinopril 2.5 mg 11/08/16 11:15 11/08/16 14:59 Zestril PO 2.5 mg DAILY ANA Administration Metoprolol Tartrate 12.5 mg 11/06/16 18:00 11/08/16 09:53 Lopressor PO 12.5 mg BID ANA Administration Pantoprazole Sodium 40 mg 11/07/16 10:00 11/08/16 09:53 Protonix Inj IVP 40 mg DAILY ANA Administration Rosuvastatin Calcium 20 mg 11/06/16 22:00 11/07/16 22:26 Crestor PO 20 mg HS ANA Administration Zolpidem Tartrate 5 mg 11/05/16 21:30 11/08/16 00:59 Ambien PO 5 mg HS PRN Administration Insomnia - Patient Studies Lab Studies: Lab Studies 11/08/16 Range/Units 04:47 WBC 11.2 H (4.8-10.8) K/uL RBC 3.04 L (4.40-5.90) Mil/uL Hgb 9.2 L (12.0-18.0) g/dL Hct 27.4 L (35.0-51.0) % MCV 90.3 (80.0-94.0) fL MCH 30.2 (27.0-31.0) pg MCHC 33.5 (33.0-37.0) g/dL RDW 15.4 H (11.5-14.5) % Plt Count 146 (130-400) K/uL MPV 9.2 (7.2-11.7) fL Neut % (Auto) 67.2 (50.0-75.0) % Lymph % (Auto) 12.6 L (20.0-40.0) % Elmore % (Auto) 13.1 H (0.0-10.0) % Eos % (Auto) 6.4 H (0.0-4.0) % Baso % (Auto) 0.7 (0.0-2.0) % Neut # 7.6 H (1.8-7.0) K/uL Lymph # 1.4 (1.0-4.3) K/uL Elmore # 1.5 H (0.0-0.8) K/uL Eos # 0.7 (0.0-0.7) K/uL Baso # 0.1 (0.0-0.2) K/uL Sodium 137 (132-148) mmol/L Potassium 3.6 (3.6-5.2) mmol/L Chloride 101 (98-107) mmol/L Carbon Dioxide 27 (22-30) mmol/L Anion Gap 13 (10-20) BUN 17 (9-20) mg/dL Creatinine 1.0 (0.8-1.5) MG/DL Est GFR ( Amer) > 60 Est GFR (Non-Af Amer) > 60 Random Glucose 90 (75-110) mg/dL Calcium 7.4 L (8.6-10.4) mg/dl Phosphorus 3.3 (2.5-4.5) mg/dL Magnesium 1.8 (1.6-2.3) mg/dL Total Bilirubin 0.7 (0.2-1.3) mg/dL AST 36 (17-59) U/L ALT 34 (21-72) U/L Alkaline Phosphatase 42 (38-126) U/L Troponin I 2.7800 H* (0.00-0.120) ng/mL Total Protein 4.6 L (6.3-8.3) g/dL Albumin 2.3 L (3.5-5.0) g/dL Globulin 2.3 (2.2-3.9) gm/dL Albumin/Globulin Ratio 1.0 (1.0-2.1) Triglycerides 58 D (0-149) mg/dL Cholesterol 69 (0-199) mg/dL LDL Cholesterol Direct 30 (0-129) mg/dL HDL Cholesterol 27 L (30-70) mg/dL Laboratory Results - last 24 hr 11/08/16 04:47 WBC 11.2 H RBC 3.04 L Hgb 9.2 L Hct 27.4 L MCV 90.3 MCH 30.2 MCHC 33.5 RDW 15.4 H Plt Count 146 MPV 9.2 Neut % (Auto) 67.2 Lymph % (Auto) 12.6 L Elmore % (Auto) 13.1 H Eos % (Auto) 6.4 H Baso % (Auto) 0.7 Neut # 7.6 H Lymph # 1.4 Elmore # 1.5 H Eos # 0.7 Baso # 0.1 Sodium 137 Potassium 3.6 Chloride 101 Carbon Dioxide 27 Anion Gap 13 BUN 17 Creatinine 1.0 Est GFR ( Amer) > 60 Est GFR (Non-Af Amer) > 60 Random Glucose 90 Calcium 7.4 L Phosphorus 3.3 Magnesium 1.8 Total Bilirubin 0.7 AST 36 ALT 34 Alkaline Phosphatase 42 Troponin I 2.7800 H* Total Protein 4.6 L Albumin 2.3 L Globulin 2.3 Albumin/Globulin Ratio 1.0 Triglycerides 58 D Cholesterol 69 LDL Cholesterol Direct 30 HDL Cholesterol 27 L Critical Care Progress Note - Nutrition Nutrition: Nutrition Category Date Time Status Liquid Diet [DIET] Diets 11/06/16 Lunch Active Assessment/Plan (1) Rectal bleeding Current Visit: Yes Status: Acute Comment: Status post transfusion of total 10 units packed RBCs and 5 units FFP Continue to have rectal bleeding CT angiogram done this morning Patient found to have elevated troponins most likely secondary to demand ischemia Case discussed with surgery and interventional radiology Patient high-risk for surgery because of elevated troponin Monitor H&H and transfuse as necessary (2) Elevated troponin Current Visit: Yes Status: Acute Comment: Not candidate for any anticoagulation because of active bleeding Attending/Attestation - Attestation I have personally seen and examined this patient.: Yes I have fully participated in the care of the patient.: Yes I have reviewed all pertinent clinical information: Yes Notes (Text): 11/08/16 18:11 Patient seen and examined in the intensive care unit. Case discussed with staff in the morning rounds. Stable for transfer to floor No active bleeding noted H&H stable
[2016-11-08 09:55] LABS: CHLORIDE 101 mmol/L (98-107); SODIUM 137 mmol/L (132-148)
[2016-11-08] MEDS: Aritificial Tears (15ml) OU SCH ×2 (09:55→18:43)
[2016-11-08 09:56] LABS: POTASSIUM 3.6 mmol/L (3.6-5.2)
[2016-11-08 09:57] LABS: BILIRUBIN,TOTAL 0.7 mg/dL (0.2-1.3); CARBON DIOXIDE 27 mmol/L (22-30); GFR AFRICAN-AMERICAN > 60
[2016-11-08 09:58] LABS: ALKALINE PHOSPHATASE 42 U/L (38-126); ALT/SGPT 34 U/L (21-72); AST/SGOT 36 U/L (17-59); BLOOD UREA NITROGEN 17 mg/dL (9-20); CALCIUM 7.4 mg/dl (8.6-10.4); GLUCOSE,RANDOM 90 mg/dL (75-110); PHOSPHOROUS 3.3 mg/dL (2.5-4.5); TOTAL PROTEIN 4.6 g/dL (6.3-8.3)
[2016-11-08 09:59] LABS: MAGNESIUM 1.8 mg/dL (1.6-2.3)
--- NOTE | 2016-11-08 09:59 | PN ---
DATE: 11/07/2016 LOCATION: ICU A. This is an 86-year-old male seen and examined at rounds today. Appeared to be awake, alert, oriented . Had 1 episode of darkish bowel movement last night, none today, and no evidence of active bleeding and no complaint of abdominal or chest pain. The entire chart is reviewed including, but not limited to, the most recent lab and radiology study r esults, current and previous medication lists, current and the previous medical events, and the case discussed at length with the staff in the intensive care unit. White blood cells reported to be 12.2 with hemoglobin 9.1, hematocrit 27.1 with normal platelet count of 148, with low calcium 7.3 and decreased albumin to 2.2, decreased total protein 4.7. PHYSICAL EXAMINATION: GENERAL: An 86-year-old male, awake, alert. VITAL SIGNS: Low-grade temperature of 100, respiratory rate of 20-24, blood pressure of 130/62. HEENT: Showed pale, dry oral mucoid membrane. Nonicteric sclerae. LUNGS: A few scattered crepitations. Decreased air entry at bases with few rales bilaterally. HEART: Positive S1 and S2. ABDOMEN: Soft with slight distention and mild generalized tenderness. No mass or organomegaly. No rebound tenderness or guarding. The patient seen by the health and safety consultant. ABDOMEN: Soft with slight generalized tenderness. No mass or organomegaly. No rebound tenderness o r guarding. EXTREMITIES: With mild lower extremities edematous changes. No clubbing or cyanosis. NEUROLOGIC: No reported new neurologic deficits, sensory or motor. IMPRESSION: 1. Gastrointestinal bleeding, most likely secondary to bleeding diverticulosis. 2. Anemia secondary to above. 3. Peptic ulcer disease. 4. Mild congestive heart failure. 5. Increased troponin level evaluated by the health and safety consultant. 6. Evidence of metabolic acidosis secondary to above most likely. 7. Malnutrition with hypoalbuminemia and hypoproteinemia. 8. 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 SUGGESTION: 1. Continue current management. 2. Surgical reevaluation. Seth Crouch MD cc: 14 TT: 11/07/2016 11:18:57 Confirmation # [id number] Dictation # [id number] mn
--- NOTE | 2016-11-08 11:02 | CP.PCM.PN ---
Subjective - Date & Time of Evaluation Date of Evaluation: 11/08/16 Time of Evaluation: 10:59 - Subjective Subjective: Pt feels well. No cough or dyspnea. No BM today. Objective - Vital Signs/Intake and Output Vital Signs (last 24 hours): Temp Pulse Resp BP Pulse Ox 97.8 F 70 37 H 119/55 L 93 L 11/08/16 04:00 11/08/16 07:21 11/08/16 07:21 11/08/16 07:21 11/08/16 07:21 Intake and Output: 11/08/16 11/08/16 06:59 18:59 Intake Total 625 310 Output Total 675 200 Balance -50 110 - Medications Medications: Current Medications Artificial Tears (Artificial Tears) 0 ml OU BID [facility] Last Admin: 11/08/16 09:55 Dose: 1 drop Guaifenesin/Dextromethorphan (Robitussin Dm) 5 ml PO Q4H PRN PRN Reason: Cough Last Admin: 11/08/16 03:57 Dose: 5 ml Metoprolol Tartrate (Lopressor) 12.5 mg PO BID [facility] Last Admin: 11/08/16 09:53 Dose: 12.5 mg Pantoprazole Sodium (Protonix Inj) 40 mg IVP DAILY [facility] Last Admin: 11/08/16 09:53 Dose: 40 mg Rosuvastatin Calcium (Crestor) 20 mg PO HS [facility] Last Admin: 11/07/16 22:26 Dose: 20 mg Zolpidem Tartrate (Ambien) 5 mg PO HS PRN PRN Reason: Insomnia Last Admin: 11/08/16 00:59 Dose: 5 mg - Labs Labs: 11/08/16 04:47 11/08/16 04:47 PT 15.4 SECONDS (9.7-12.2) H 11/05/16 15:29 INR 1.4 11/05/16 15:29 APTT 28 SECONDS (21-34) 11/03/16 17:40 - Constitutional Appears: Well - Head Exam Head Exam: NORMAL INSPECTION - Eye Exam Eye Exam: EOMI, Normal appearance Pupil Exam: NORMAL ACCOMODATION - ENT Exam ENT Exam: Mucous Membranes Moist - Neck Exam Neck Exam: Full ROM - Cardiovascular Exam Cardiovascular Exam: REGULAR RHYTHM - GI/Abdominal Exam GI & Abdominal Exam: Normal Bowel Sounds - Extremities Exam Extremities Exam: Full ROM, Normal Inspection - Neurological Exam Neurological Exam: Alert, Awake, CN II-XII Intact - Psychiatric Exam Psychiatric exam: Normal Mood - Skin Skin Exam: Dry Assessment and Plan - Assessment and Plan (Free Text) Assessment: 1. S/P type II TX, due to coronary hypoperfusion. of anti-plt agents 2,. CHF clinically resolved. CXR yesterday poor penetration of a portable film 3. Statin, beta naila. Will add low dose keaton inhibitor. 4. advance diet.
--- NOTE | 2016-11-08 11:28 | PN ---
DATE: 11/08/2016 LOCATION: ICU A. This is an 86-year-old male seen and examined in rounds, tolerating oral intake well with intermitten t periods of dry cough. Awake, alert and oriented. No reported active bleeding this morning. The patient had been complaining of intermittent period of dizziness, but no nausea or vomiting. The entire chart is reviewed, including but not limited to the most recent lab and radiology study re sults, current and previous medication list, current and the previous medical events as well as aller gies to medication list. Case was discussed at length with the staff. The most recent lab results showed leukocytosis of 11.2 , with hemoglobin 9.2, hematocrit 27.4, with normal platelet count and low calcium of 7.4, but persis tently elevated troponin level with low albumin 2.3, low total protein 4.6. Today's chest x-ray report is still pending. PHYSICAL EXAMINATION: GENERAL: An 86-year-old male. VITAL SIGNS: Afebrile with pulse of 74, respiratory rate of 24-26, with blood pressure of 114/52. HEENT: Showed pale, dry oral mucoid membrane. Nonicteric sclerae. LUNGS: Few scattered crepitation, decreased air entry at bases. HEART: Positive S1 and S2. ABDOMEN: Soft. Bowel sounds are present. No mass or organomegaly. No rebound tenderness or guardi ng. RECTAL: Positive tone. IMPRESSION: 1. Gastrointestinal bleeding subsiding. 2. Bleeding diverticulosis. 3. Anemia secondary to above. 4. Myocardial infarction by recent history with possible congestive heart failure. 5. Peptic ulcer disease. SUGGESTION: 1. Continue current management. 2. Keep on clear liquid diet only for the following 2-3 days, then subsequently increase the oral in take. Seth Crouch MD cc: 14 TT: 11/08/2016 11:27:55 Confirmation # [id number] Dictation # [id number]
--- NOTE | 2016-11-08 12:45 | CP.PCM.PN ---
Subjective - Date & Time of Evaluation Date of Evaluation: 11/08/16 Time of Evaluation: 12:00 - Subjective Subjective: Patient did not have any blood in BM. He reported no events overnight. Hgb 9.1 Objective - Vital Signs/Intake and Output Vital Signs (last 24 hours): Temp Pulse Resp BP Pulse Ox 98 F 66 30 H 117/61 100 11/08/16 08:00 11/08/16 11:22 11/08/16 11:22 11/08/16 11:22 11/08/16 11:22 Intake and Output: 11/08/16 11/08/16 06:59 18:59 Intake Total 625 310 Output Total 675 200 Balance -50 110 - Medications Medications: Current Medications Artificial Tears (Artificial Tears) 0 ml OU BID [facility] Last Admin: 11/08/16 09:55 Dose: 1 drop Guaifenesin/Dextromethorphan (Robitussin Dm) 5 ml PO Q4H PRN PRN Reason: Cough Last Admin: 11/08/16 03:57 Dose: 5 ml Lisinopril (Zestril) 2.5 mg PO DAILY [facility] Metoprolol Tartrate (Lopressor) 12.5 mg PO BID [facility] Last Admin: 11/08/16 09:53 Dose: 12.5 mg Pantoprazole Sodium (Protonix Inj) 40 mg IVP DAILY [facility] Last Admin: 11/08/16 09:53 Dose: 40 mg Rosuvastatin Calcium (Crestor) 20 mg PO HS [facility] Last Admin: 11/07/16 22:26 Dose: 20 mg Zolpidem Tartrate (Ambien) 5 mg PO HS PRN PRN Reason: Insomnia Last Admin: 11/08/16 00:59 Dose: 5 mg - Labs Labs: 11/08/16 04:47 11/08/16 04:47 PT 15.4 SECONDS (9.7-12.2) H 11/05/16 15:29 INR 1.4 11/05/16 15:29 APTT 28 SECONDS (21-34) 11/03/16 17:40 Assessment and Plan - Assessment and Plan (Free Text) Assessment: 1) Lower GI Bleed, Anemia, Hypotension 11/08: Again no bloody BM today, Hgb is 9.1. 11/07: Today did not have any bloody BM. Hgb is currently 9.1. As mentioned before the patient has had numerous transfusions the previous week. Likely diverticular in origin, surgery is following and he may need surgical removal of the colon but due to his advance age as well as positive troponins it would be a high risk surgery. GI (Dr. Crouch) on the case; help appreciated EGD (11/02/16): medium sized hiatus hernia, acute gastritis; pathology negative for H Pylori Colonoscopy (11/03/16): non-bleeding internal hemorrhoids, severe diverticulosis in the entire examined colon, there was active bleeding coming from the diverticular opening, blood in the entire examined colon. Transferred to ICU on 11/02/16; has need multiple transfusions including PRBC and FFP during hospitalization CT Abdomen/Pelvis (11/01/16): diverticulosis without definite CT evidence of diverituclitis; moderate to entensive disease of visualized arteries. no arotic aneurysm Bleeding Scan (11/02/16): findings suspicious for a focus of active GI bleeding in the pelvis, most likely to sigmoid colon Mesenteric angiogram (11/04/16): no evidence of GI bleed SMA or ÁNGELA. Selective catherization catherization of ÁNGELA shows no bleed General surgery (Dr. Allan)- on the case; help appreciated General surgery (Dr. Higgins, who had completed patient's cholecystectomy in the past)--> indicated in his consult noted, should have surgery to remove his colon, but in light of cardiac events including elevated troponin however the risks of proceeding with any surgical intervention at this time are higher in light of patient having an acute myocardial event, and recommending aggressive support care and to prevent hemoglobin from falling 2) Nonstemi DC, Demand Ischemia 11/08: The troponins continue to be down trending, he denied shortness of breath or chest pain. Currently on statin, BB, low dose keaton-I 11/07: currenlty no C/P, breathing is ok. Likley demand ischemia contributing to the positive troponins. If Hgb drops he may need further transfusions History of known coronary artery disease s/p CABG Cardiology Consult: Dr Holt on board off aspirin and anticoagulation secondary to acute blood loss secondary to lower GI bleed No plans for cardiac catherization because is high risk for bleeding; unless he develops decompensated heart failure or hemodynamic unstable in setting of ACS per cardio note Started on Lopressor 12.5mg PO bid per cardiology Crestor 20mg PO qHS Troponins: 0.9980, 2.5800, 6.800, demand ischemia secondary to GI bleed 3) Abnormal urinalysis urine culture No growth (was on Rocephin 11/01-11/06) UA showed both esterase and pyuria 4) CAD History of known coronary artery disease s/p CABG Cardiology Consult: Dr Holt on board off aspirin and anticoagulation secondary to acute blood loss secondary to lower GI bleed No plans for cardiac catherization because is high risk for bleeding; unless he develops decompensated heart failure or hemodynamic unstable in setting of ACS per cardio note Started on Lopressor 12.5mg PO bid per cardiology Crestor 20mg PO qHS Echocardiogram (11/03/16): left ventricle systolic function is normal, mild valvular aortic stenosis (official findings per EMR) 5) History of COPD Patient is not in acute exacerbation. Patient is a current smoker; not actively smoking while in hospitalization Chest Xray (11/05/16): bilateral effusion right larger than left. mild bibasilar atelectasis, central pulmonary vasculature is slightly increased suggesting mild venous congestion 6) Prophylactic Care GI ppx: Protonix 40mg IV Q 12hours VTE ppx contraindcation secondary to acute GI bleed
--- NOTE | 2016-11-08 13:04 | RAD ---
HISTORY: Cough COMPARISON: 11/07/2016 FINDINGS: Upper the right IJV line terminates in the SVC. LUNGS: There is no change in pulmonary venous congestion. There is no focal consolidation. PLEURA: No significant pleural effusion identified, no pneumothorax apparent. CARDIOVASCULAR: There is persistent mild cardiomegaly. Status post CABG. OSSEOUS STRUCTURES: No significant abnormalities. VISUALIZED UPPER ABDOMEN: Normal. OTHER FINDINGS: None. IMPRESSION: Persistent mild cardiomegaly and pulmonary venous congestion. No focal consolidation. Number
[2016-11-08] MEDS ORDERED: Aritificial Tears (15ml) OU SCH (20:00)
[2016-11-09 06:48] LABS: CHLORIDE 104 mmol/L (98-107); SODIUM 137 mmol/L (132-148)
[2016-11-09 06:49] LABS: POTASSIUM 3.7 mmol/L (3.6-5.2)
[2016-11-09 06:50] LABS: GFR AFRICAN-AMERICAN > 60
[2016-11-09 06:51] LABS: ALB/GLOB RATIO 0.9 (1.0-2.1); ALKALINE PHOSPHATASE 40 U/L (38-126); ALT/SGPT 36 U/L (21-72); AST/SGOT 30 U/L (17-59); BILIRUBIN,TOTAL 0.8 mg/dL (0.2-1.3); BLOOD UREA NITROGEN 14 mg/dL (9-20); CALCIUM 7.4 mg/dl (8.6-10.4); CARBON DIOXIDE 26 mmol/L (22-30); GLUCOSE,RANDOM 85 mg/dL (75-110); PHOSPHOROUS 3.3 mg/dL (2.5-4.5); TOTAL PROTEIN 5.1 g/dL (6.3-8.3)
[2016-11-09 06:52] LABS: BASO # 0.1 K/uL (0.0-0.2); BASO % 0.8 % (0.0-2.0); EOS # 0.5 K/uL (0.0-0.7); EOS % 5.4 % (0.0-4.0); HEMATOCRIT 29.6 % (35.0-51.0); LYMPH # 1.1 K/uL (1.0-4.3); LYMPH % 11.1 % (20.0-40.0); MAGNESIUM 1.9 mg/dL (1.6-2.3); MEAN CELL VOLUME 90.9 fL (80.0-94.0); MEAN CORPUSCULAR HGB CONC 34.1 g/dL (33.0-37.0); MEAN PLATELET VOLUME 9.3 fL (7.2-11.7); MONO # 1.1 K/uL (0.0-0.8); MONO % 11.4 % (0.0-10.0); WHITE BLOOD COUNT 9.6 K/uL (4.8-10.8)
[2016-11-09] MEDS: guaiFENesin DM 100 mg-10 mg/5 ml UD PO PRN (09:54)
[2016-11-09] MEDS: Aritificial Tears (15ml) OU SCH ×2 (09:55→18:16)
--- NOTE | 2016-11-09 10:40 | PN ---
DATE: 11/09/2016 LOCATION: ICU 8. This is an 86-year-old male seen and examined on rounds today, appeared to be awake, alert, oriented with reported bowel movement of moderate amount of blackish fecal material, but no active bleeding. Case discussed at length with the medical staff in the intensive care unit and the entire chart is re viewed, including but not limited to the most recent lab and radiology study results, current and pre vious medication lists, current and the previous medical events. The case was discussed at length wi th the primary MD. The most recent lab results showed subsequent increase of hemoglobin 10.1, hemato crit 29.6 with normal platelet count with low calcium 7.4, low albumin 2.4, total protein 5.1. Tropo alonzo level is still elevated. Most recent chest x-ray done yesterday is indicative of persistent mild cardiomegaly with mild pulmon yessi edema. PHYSICAL EXAMINATION: GENERAL: An 86-year-old male, awake, alert, oriented. VITAL SIGNS: Afebrile with pulse of 70, respiratory rate 20-22, blood pressure 124/54. HEENT: Showed pale, dry oral mucoid membrane. Nonicteric sclerae. LUNGS: Few scattered crepitation, decreased air entry at bases with a few rales mildly bilaterally. HEART: Positive S1 and S2. ABDOMEN: Soft with slight tenderness and slight distention. Bowel sounds are hyperactive. No mass or organomegaly. EXTREMITIES: With slight lower extremity edematous changes. No clubbing or cyanosis. No new report ed neurological deficits, sensory or motor. IMPRESSION: 1. Bleeding diverticulosis. 2. Anemia secondary to above. 3. Peptic ulcer disease. 4. Recently diagnosed myocardial infarction. 5. Mild congestive heart failure. SUGGESTION: 1. Continue current management. 2. Advance diet to full liquid diet, then start soft bland diet, no citrus, no seeds, at a.m. if the patient has no evidence of bleeding. Seth Crouch MD cc: 14 TT: 11/09/2016 10:39:33 Confirmation # [id number] Dictation # [id number] lashell
--- NOTE | 2016-11-09 11:16 | CP.PCM.PN ---
<Donna Ceballos - Last Filed: 11/09/16 11:14> Subjective - Date & Time of Evaluation Date of Evaluation: 11/09/16 Time of Evaluation: 07:30 - Subjective Subjective: PGY [address] Phillips: Patient seen and evaluated at bedside this morning. He states that he is anxious to get a bed upstair out of the ICU because it is loud down there and he can't sleep as well. He would also like to be able to get up and go to the bathroom and walk around more. He is looking forward to working with physical therapy because he states that he feels as is he is deconditioned from being in a hospital bed for so long. He is tolerating a liquid diet. He reports have 2 nonbloody BM yesterday. He denies all other complaints such as headache, changes in vision, numbnesses/tingling, CP, SOB, palpitations, N/V, abdominal, pain, pain or swelling in the extremities. Objective - Vital Signs/Intake and Output Vital Signs (last 24 hours): Temp Pulse Resp BP Pulse Ox 97.6 F 74 20 118/52 L 96 11/09/16 08:00 11/09/16 08:00 11/09/16 08:00 11/09/16 08:00 11/09/16 08:00 Intake and Output: 11/09/16 11/09/16 06:59 18:59 Intake Total 120 Output Total 200 Balance -80 - Medications Medications: Current Medications Artificial Tears (Artificial Tears) 0 ml OU BID [facility] Last Admin: 11/09/16 09:55 Dose: 1 drop Guaifenesin/Dextromethorphan (Robitussin Dm) 5 ml PO Q4H PRN PRN Reason: Cough Last Admin: 11/09/16 09:54 Dose: 5 ml Lisinopril (Zestril) 2.5 mg PO DAILY [facility] Last Admin: 11/09/16 09:55 Dose: 2.5 mg Metoprolol Tartrate (Lopressor) 12.5 mg PO BID [facility] Last Admin: 11/09/16 09:54 Dose: 12.5 mg Pantoprazole Sodium (Protonix Inj) 40 mg IVP DAILY [facility] Last Admin: 11/09/16 09:54 Dose: 40 mg Rosuvastatin Calcium (Crestor) 20 mg PO HS [facility] Last Admin: 11/08/16 21:41 Dose: 20 mg Zolpidem Tartrate (Ambien) 5 mg PO HS PRN PRN Reason: Insomnia Last Admin: 11/08/16 22:13 Dose: 5 mg - Labs Labs: 11/09/16 06:30 11/09/16 06:30 PT 15.4 SECONDS (9.7-12.2) H 11/05/16 15:29 INR 1.4 11/05/16 15:29 APTT 28 SECONDS (21-34) 11/03/16 17:40 - Constitutional Appears: Non-toxic, No Acute Distress - Head Exam Head Exam: ATRAUMATIC, NORMAL INSPECTION - Eye Exam Eye Exam: EOMI, Normal appearance, PERRL Pupil Exam: NORMAL ACCOMODATION - ENT Exam ENT Exam: Mucous Membranes Moist - Respiratory Exam Respiratory Exam: Clear to Ausculation Bilateral, NORMAL BREATHING PATTERN. absent: Respiratory Distress - Cardiovascular Exam Cardiovascular Exam: REGULAR RHYTHM, +S1 - GI/Abdominal Exam GI & Abdominal Exam: Soft, Normal Bowel Sounds. absent: Distended, Firm, Guarding, Tenderness - Extremities Exam Extremities Exam: Normal Inspection. absent: Calf Tenderness, Pedal Edema - Back Exam Back Exam: NORMAL INSPECTION. absent: CVA tenderness (L), CVA tenderness (R), paraspinal tenderness - Neurological Exam Neurological Exam: Alert, Awake, CN II-XII Intact, Oriented x3 - Psychiatric Exam Psychiatric exam: Anxious, Normal Affect, Normal Mood - Skin Skin Exam: Dry, Intact, Normal Color, Pallor, Warm Assessment and Plan - Assessment and Plan (Free Text) Assessment: 1) Lower GI Bleed, Anemia, Hypotension 11/09: no bloody BM today, Hgb is 10.1. Will slowly begin to advance diet. Patient now transferred out of ICU to telemetry bed. 11/07: Today did not have any bloody BM. Hgb is currently 9.1. As mentioned before the patient has had numerous transfusions the previous week. Likely diverticular in origin, surgery is following and he may need surgical removal of the colon but due to his advance age as well as positive troponins it would be a high risk surgery. GI (Dr. Crouch) on the case; help appreciated EGD (11/02/16): medium sized hiatus hernia, acute gastritis; pathology negative for H Pylori Colonoscopy (11/03/16): non-bleeding internal hemorrhoids, severe diverticulosis in the entire examined colon, there was active bleeding coming from the diverticular opening, blood in the entire examined colon. Transferred to ICU on 11/02/16; has need multiple transfusions including PRBC and FFP during hospitalization CT Abdomen/Pelvis (11/01/16): diverticulosis without definite CT evidence of diverituclitis; moderate to entensive disease of visualized arteries. no arotic aneurysm Bleeding Scan (11/02/16): findings suspicious for a focus of active GI bleeding in the pelvis, most likely to sigmoid colon Mesenteric angiogram (11/04/16): no evidence of GI bleed SMA or ÁNGELA. Selective catherization catherization of ÁNGELA shows no bleed General surgery (Dr. Allan)- on the case; help appreciated General surgery (Dr. Higgins, who had completed patient's cholecystectomy in the past)--> indicated in his consult noted, should have surgery to remove his colon, but in light of cardiac events including elevated troponin however the risks of proceeding with any surgical intervention at this time are higher in light of patient having an acute myocardial event, and recommending aggressive support care and to prevent hemoglobin from falling 2) Nonstemi MD, Demand Ischemia 11/08: The troponins continue to be down trending, he denied shortness of breath or chest pain. Currently on statin, BB, low dose keaton-I 11/07: currenlty no C/P, breathing is ok. Likley demand ischemia contributing to the positive troponins. If Hgb drops he may need further transfusions History of known coronary artery disease s/p CABG Cardiology Consult: Dr Holt on board off aspirin and anticoagulation secondary to acute blood loss secondary to lower GI bleed No plans for cardiac catherization because is high risk for bleeding; unless he develops decompensated heart failure or hemodynamic unstable in setting of ACS per cardio note Lopressor 12.5mg PO bid per cardiology Crestor 20mg PO qHS Troponins: 0.9980, 2.5800, 6.800, 3.4200, 2.7800 demand ischemia secondary to GI bleed -> trending down 3) Abnormal urinalysis urine culture No growth (was on Rocephin 11/01-11/06) UA showed both esterase and pyuria 4) CAD History of known coronary artery disease s/p CABG Cardiology Consult: Dr Holt on board off aspirin and anticoagulation secondary to acute blood loss secondary to lower GI bleed No plans for cardiac catherization because is high risk for bleeding; unless he develops decompensated heart failure or hemodynamic unstable in setting of ACS per cardio note Started on Lopressor 12.5mg PO bid per cardiology Crestor 20mg PO qHS Echocardiogram (11/03/16): left ventricle systolic function is normal, mild valvular aortic stenosis (official findings per EMR) ROMIS elevated bur trending down 5) History of COPD Patient is not in acute exacerbation. Patient is a current smoker; not actively smoking while in hospitalization Chest Xray (11/05/16): bilateral effusion right larger than left. mild bibasilar atelectasis, central pulmonary vasculature is slightly increased suggesting mild venous congestion 6) Prophylactic Care GI ppx: Protonix 40mg IV Q 12hours VTE ppx contraindcation secondary to acute GI bleed FUll liquid diet today per GI, will advance to soft bland no seed tomorrow Physical therapy/Occupational therapy Dispo plan: rehab <Michael Phillips H - Last Filed: 11/09/16 16:13> Objective - Vital Signs/Intake and Output Vital Signs (last 24 hours): Temp Pulse Resp BP Pulse Ox 97.2 F L 68 33 H 140/66 98 11/09/16 12:00 11/09/16 16:00 11/09/16 16:00 11/09/16 16:00 11/09/16 16:00 Intake and Output: 11/09/16 11/09/16 06:59 18:59 Intake Total 120 Output Total 200 Balance -80 - Medications Medications: Current Medications Artificial Tears (Artificial Tears) 0 ml OU BID [facility] Last Admin: 11/09/16 09:55 Dose: 1 drop Guaifenesin/Dextromethorphan (Robitussin Dm) 5 ml PO Q4H PRN PRN Reason: Cough Last Admin: 11/09/16 09:54 Dose: 5 ml Lisinopril (Zestril) 2.5 mg PO DAILY [facility] Last Admin: 11/09/16 09:55 Dose: 2.5 mg Metoprolol Tartrate (Lopressor) 12.5 mg PO BID [facility] Last Admin: 11/09/16 09:54 Dose: 12.5 mg Pantoprazole Sodium (Protonix Inj) 40 mg IVP DAILY [facility] Last Admin: 11/09/16 09:54 Dose: 40 mg Rosuvastatin Calcium (Crestor) 20 mg PO HS [facility] Last Admin: 11/08/16 21:41 Dose: 20 mg Zolpidem Tartrate (Ambien) 5 mg PO HS PRN PRN Reason: Insomnia Last Admin: 11/08/16 22:13 Dose: 5 mg - Labs Labs: 11/09/16 06:30 11/09/16 06:30 PT 15.4 SECONDS (9.7-12.2) H 11/05/16 15:29 INR 1.4 11/05/16 15:29 APTT 28 SECONDS (21-34) 11/03/16 17:40 Attending/Attestation - Attestation I have personally seen and examined this patient.: Yes I have fully participated in the care of the patient.: Yes I have reviewed all pertinent clinical information, including history, physical exam and plan: Yes Notes (Text): Medical Attending: Patient was seen and examined by me. Agree with the above note by the resident. The patient was having normal BMs at this time. He denied blood in stools. Hgb is 10.1 today. At this time his blood pressure is also stable as well. Will try liquid diet today, and if patient tolerates this then as per discussion with GI will further advance diet tommorow thank you Michael Phillips
--- NOTE | 2016-11-09 11:21 | CP.PCM.PN ---
Subjective - Date & Time of Evaluation Date of Evaluation: 11/09/16 Time of Evaluation: 11:19 - Subjective Subjective: Surgery: Dr. Higgins Patient doing well today. Up for transfer out of ICU. Denies bloody bowel movement. Tolerating diet. Objective - Vital Signs/Intake and Output Vital Signs (last 24 hours): Temp Pulse Resp BP Pulse Ox 97.6 F 74 20 118/52 L 96 11/09/16 08:00 11/09/16 08:00 11/09/16 08:00 11/09/16 08:00 11/09/16 08:00 Intake and Output: 11/09/16 11/09/16 06:59 18:59 Intake Total 120 Output Total 200 Balance -80 - Medications Medications: Current Medications Artificial Tears (Artificial Tears) 0 ml OU BID [facility] Last Admin: 11/09/16 09:55 Dose: 1 drop Guaifenesin/Dextromethorphan (Robitussin Dm) 5 ml PO Q4H PRN PRN Reason: Cough Last Admin: 11/09/16 09:54 Dose: 5 ml Lisinopril (Zestril) 2.5 mg PO DAILY [facility] Last Admin: 11/09/16 09:55 Dose: 2.5 mg Metoprolol Tartrate (Lopressor) 12.5 mg PO BID [facility] Last Admin: 11/09/16 09:54 Dose: 12.5 mg Pantoprazole Sodium (Protonix Inj) 40 mg IVP DAILY [facility] Last Admin: 11/09/16 09:54 Dose: 40 mg Rosuvastatin Calcium (Crestor) 20 mg PO HS [facility] Last Admin: 11/08/16 21:41 Dose: 20 mg Zolpidem Tartrate (Ambien) 5 mg PO HS PRN PRN Reason: Insomnia Last Admin: 11/08/16 22:13 Dose: 5 mg - Labs Labs: 11/09/16 06:30 11/09/16 06:30 PT 15.4 SECONDS (9.7-12.2) H 11/05/16 15:29 INR 1.4 11/05/16 15:29 APTT 28 SECONDS (21-34) 11/03/16 17:40 - Constitutional Appears: Non-toxic, No Acute Distress - Head Exam Head Exam: ATRAUMATIC, NORMOCEPHALIC - Eye Exam Eye Exam: EOMI, Normal appearance - ENT Exam ENT Exam: Mucous Membranes Moist - Respiratory Exam Respiratory Exam: NORMAL BREATHING PATTERN. absent: Respiratory Distress - Cardiovascular Exam Cardiovascular Exam: REGULAR RHYTHM. absent: Tachycardia - GI/Abdominal Exam GI & Abdominal Exam: Soft. absent: Distended, Tenderness - Extremities Exam Extremities Exam: Normal Inspection. absent: Calf Tenderness - Neurological Exam Neurological Exam: Alert, Awake - Psychiatric Exam Psychiatric exam: Normal Affect, Normal Mood - Skin Skin Exam: Dry, Intact, Normal Color, Warm Assessment and Plan - Assessment and Plan (Free Text) Assessment: 86 y/o male w/ acute GI bleed, appears to have resolved Plan: -Hgb up today and continues to increase -no further bloody BMS -ok for reg diet from surgical standpoint -no surgical intervention at this time -s/e w/ Dr. Ronaldo Mejia PGY1
[2016-11-10] MEDS: guaiFENesin DM 100 mg-10 mg/5 ml UD PO PRN (00:06)
[2016-11-10 08:11] LABS: BASO # 0.1 K/uL (0.0-0.2); BASO % 0.7 % (0.0-2.0); EOS # 0.4 K/uL (0.0-0.7); EOS % 4.6 % (0.0-4.0); HEMATOCRIT 31.5 % (35.0-51.0); LYMPH % 12.2 % (20.0-40.0); MEAN CORPUSCULAR HEMOGLOBIN 30.5 pg (27.0-31.0); MEAN CORPUSCULAR HGB CONC 33.9 g/dL (33.0-37.0); MONO # 1.1 K/uL (0.0-0.8); MONO % 12.3 % (0.0-10.0); RED CELL DISTRIBUTION WIDTH 15.8 % (11.5-14.5); WHITE BLOOD COUNT 8.6 K/uL (4.8-10.8)
[2016-11-10 08:12] LABS: CHLORIDE 101 mmol/L (98-107); POTASSIUM 3.8 mmol/L (3.6-5.2); SODIUM 139 mmol/L (132-148)
[2016-11-10 08:14] LABS: BILIRUBIN,TOTAL 0.8 mg/dL (0.2-1.3); GFR AFRICAN-AMERICAN > 60
[2016-11-10 08:15] LABS: ALB/GLOB RATIO 0.9 (1.0-2.1); ALKALINE PHOSPHATASE 43 U/L (38-126); ALT/SGPT 33 U/L (21-72); AST/SGOT 26 U/L (17-59); BLOOD UREA NITROGEN 12 mg/dL (9-20); CALCIUM 7.8 mg/dl (8.6-10.4); CARBON DIOXIDE 30 mmol/L (22-30); GLUCOSE,RANDOM 101 mg/dL (75-110); PHOSPHOROUS 3.3 mg/dL (2.5-4.5); TOTAL PROTEIN 5.3 g/dL (6.3-8.3)
[2016-11-10 08:16] LABS: MAGNESIUM 1.9 mg/dL (1.6-2.3)
--- NOTE | 2016-11-10 08:29 | CP.PCM.PN ---
Subjective - Date & Time of Evaluation Date of Evaluation: 11/10/16 Time of Evaluation: 07:00 - Subjective Subjective: General Surgery - Dr. Higgins Pt S&E. NAMARK. Pt states no further BM past 24hrs. Hgb trending up, 10.7 today. Pt has been OOB with assistance, dizziness improving. He does complain of some increased leg and scrotal swelling and states he was recently started on Lasix outside of the hospital. Objective - Vital Signs/Intake and Output Vital Signs (last 24 hours): Temp Pulse Resp BP Pulse Ox 97.9 F 69 20 144/74 98 11/09/16 23:11 11/10/16 01:33 11/09/16 23:11 11/09/16 23:11 11/09/16 23:11 Intake and Output: 11/10/16 11/10/16 06:59 18:59 Intake Total 120 120 Output Total 550 Balance 120 -430 - Medications Medications: Current Medications Artificial Tears (Artificial Tears) 0 ml OU BID [facility] Last Admin: 11/09/16 18:16 Dose: 1 drop Guaifenesin/Dextromethorphan (Robitussin Dm) 5 ml PO Q4H PRN PRN Reason: Cough Last Admin: 11/10/16 00:06 Dose: 5 ml Lisinopril (Zestril) 2.5 mg PO DAILY [facility] Last Admin: 11/09/16 09:55 Dose: 2.5 mg Metoprolol Tartrate (Lopressor) 12.5 mg PO BID [facility] Last Admin: 11/09/16 18:15 Dose: 12.5 mg Pantoprazole Sodium (Protonix Inj) 40 mg IVP DAILY [facility] Last Admin: 11/09/16 09:54 Dose: 40 mg Rosuvastatin Calcium (Crestor) 20 mg PO HS [facility] Last Admin: 11/09/16 21:32 Dose: 20 mg Zolpidem Tartrate (Ambien) 5 mg PO HS PRN PRN Reason: Insomnia Last Admin: 11/09/16 23:36 Dose: 5 mg - Labs Labs: 11/10/16 07:57 11/10/16 07:57 PT 15.4 SECONDS (9.7-12.2) H 11/05/16 15:29 INR 1.4 11/05/16 15:29 APTT 28 SECONDS (21-34) 11/03/16 17:40 - Constitutional Appears: No Acute Distress - Head Exam Head Exam: ATRAUMATIC, NORMOCEPHALIC - Respiratory Exam Respiratory Exam: NORMAL BREATHING PATTERN. absent: Respiratory Distress - GI/Abdominal Exam GI & Abdominal Exam: Soft. absent: Distended, Tenderness - Extremities Exam Extremities Exam: Pedal Edema. absent: Tenderness - Neurological Exam Neurological Exam: Alert, Oriented x3 - Psychiatric Exam Psychiatric exam: Normal Affect, Normal Mood - Skin Skin Exam: Dry, Intact Assessment and Plan - Assessment and Plan (Free Text) Assessment: 86yo M w/ LGIB, resolved Plan: -Hgb 10.7 today, no further bloody stools -Regular diet -No surgical intervention -Care as per medical team -Felice King PGY2
[2016-11-10 08:33] LABS: INR 1.4
--- NOTE | 2016-11-10 09:53 | PN ---
DATE: 11/10/2016 LOCATION: 556, bed A. This is an 86-year-old male seen and examined in rounds out of the intensive care unit, appeared to b e awake, alert, oriented, without reported active bleeding this morning, tolerating oral intake well, and no reported bowel movement for the last 24 hours. Is still complaining of generalized weakness and malaise with ____ periods of mild dizziness, which h ave been improving significantly. The entire chart is reviewed, including but not limited to the most recent lab and radiology study re sults, current and the previous medication list, current and the previous medical events. Case was d iscussed with the staff at length. LABORATORY DATA: Most recent lab results showed hemoglobin of 10.7, hematocrit 31.5 with normal plat elet count, as well as normal white blood cells with low calcium 7.8 with low total protein 5.3, low albumin 2.5 with the most recent chest x-ray done today, report still pending. PHYSICAL EXAMINATION: GENERAL: An 86-year-old male, awake, alert, oriented. VITAL SIGNS: Afebrile with pulse of 72, respiratory rate 20-22 with blood pressure of 136/70. HEENT: Showed pale, dry oral mucoid membrane. Nonicteric sclerae. LUNGS: Few scattered crepitations with few scattered mild rales bilaterally, and mild decrease of ai r entry at bases. HEART: Positive S1 and S2. ABDOMEN: Soft with slight distention, mild generalized tenderness. No mass or organomegaly. No iam ound tenderness or guarding. RECTAL: Positive tone. Vault is empty. EXTREMITIES: Without significant clubbing or cyanosis, but with mild lower extremity edematous mcrae es, as well as mild scrotal edematous changes. NEUROLOGIC: No reported new neurological deficits, sensory or motor. IMPRESSION: 1. Recent history of bleeding diverticulosis. 2. Anemia secondary to above. 3. Peptic ulcer disease. 4. Recently diagnosed myocardial infarction. 5. Mild congestive heart failure, clinically. 6. Malnutrition with hypoalbuminemia, hypoproteinemia. SUGGESTION: 1. I agree with your plan. 2. May start Lasix IV 20 mg daily. 3. The patient will need physical therapy. 4. The patient may need followup colonoscopy only when he is more stable clinically, as the first co lonoscopy showed retained blood and blood clot that is to be kept in mind. Seth Crouch MD cc: 14 TT: 11/10/2016 09:53:09 Confirmation # [id number] Dictation # [id number]
[2016-11-10] MEDS: Aritificial Tears (15ml) OU SCH (10:40)
--- NOTE | 2016-11-10 11:16 | CON ---
DATE: 11/01/[address] Seth Crouch to Dr. Joaquín Stanley. I was called for GI consultation by the admitting medical team. The patient is seen and fully examin ed on 11/01/2016 as requested by the admitting MD. The entire chart is reviewed, including but not li mited to, most recent lab and radiology study results, current and previous medication lists, current and previous medical events, allergy to medication list as well as all the available current and pre vious medical records. Case discussed at length with the staff on the floor as well as the ER physic jens and nursing staff. This is an 86-year-old male who was admitted to the hospital through the Emergency Room with a main c omplaint of generalized weakness and malaise, slight headache, dizziness with loose bowel movement an d then subsequent rectal bleeding for the last 16-24 hours prior to his admission. No reported hemat emesis. No chest pain or palpitation reported and no significant new episodes of shortness of breath , chills, fever. No head trauma. PAST MEDICAL HISTORY: Including mainly, but not limited to: 1. Hypertension. 2. TIA. 3. Coronary artery disease with status post coronary artery bypass graft. 4. Chronic renal insufficiency. 5. Chronic lower back pain syndrome. FAMILY HISTORY: Unknown. CURRENT MEDICATIONS: Lists were reviewed. SOCIAL HISTORY: Denied any cigarette smoking or alcohol intake. ALLERGY TO MEDICATION: List is completely reviewed. After being admitted to the hospital, patient was found to have normal H and H with subsequent drop o f hemoglobin to 9.9 with drop of hematocrit to 29.2 with leukocytosis of 11.9 with PT reported to be 14.1 with increased BUN 32, but normal creatinine, low calcium 7.5, with initially reported normal tr oponin with total protein 5.1, albumin 2.8. Stool for occult blood reported to be positive. The patient had initial CAT scan of the abdomen and pelvis done in the Emergency Room, which showed e vidence of diverticulosis without evidence of diverticulitis and rest as per report. PHYSICAL EXAMINATION: GENERAL: An 86-year-old male, appeared to be awake, alert, oriented. VITAL SIGNS: Afebrile with a pulse of 72, respiratory rate 18-20 and blood pressure was reported to be 98/58. HEENT: Showed pale, dry oral mucoid membrane. Nonicteric sclerae. LYMPH NODES: No lymphadenitis or lymphadenopathy. LUNGS: Few scattered crepitation, decreased air entry at bases. HEART: Positive S1 and S2. ABDOMEN: Soft. Bowel sounds are present and hyperactive. RECTAL: Positive tone, trace of fresh and old blood and blood clot. EXTREMITIES: With lower extremities mild edematous changes. No clubbing or cyanosis. NEUROLOGIC: No reported new neurological deficit, sensory or motor. IMPRESSION: 1. Gastrointestinal bleeding, upper versus lower. 2. To rule out bleeding diverticulosis. 3. To rule out occult gastrointestinal malignancy. 4. Anemia, secondary to above. 5. Multiple past medical history including, but not limited to, hypertension, coronary artery diseas e status post coronary artery bypass graft with chronic lower back pain syndrome as well as reported transient ischemic attack. SUGGESTION: 1. Continue current management. 2. Blood transfusion to keep hemoglobin around 10 gram percent. 3. Correct any underlying coagulopathy. 4. Endoscopic evaluation of the gastrointestinal tract when the patient is more stable clinically. 5. Cancer markers including CEA. Thank you for letting me participate in your patient's case management. Seth Crouch MD cc: 14 TT: 11/10/2016 11:16:17 Confirmation # [id number] Dictation # [id number]
--- NOTE | 2016-11-10 13:29 | RAD ---
HISTORY: eval for venous congestion COMPARISON: Comparison chest dated 11/08/2016. FINDINGS: LUNGS: Mild pulmonary venous congestive changes with what may represent mild bibasilar atelectasis and or alveolar-type infiltrates and small bilateral effusions left larger than right PLEURA: No pneumothorax apparent. CARDIOVASCULAR: Sternotomy wires and cardiomegaly unchanged. OSSEOUS STRUCTURES: No significant abnormalities. VISUALIZED UPPER ABDOMEN: Normal. OTHER FINDINGS: None. IMPRESSION: Mild pulmonary venous congestive changes with what may represent mild bibasilar atelectasis and or alveolar-type infiltrates and small bilateral effusions left larger than right
[2016-11-10 16:07] VITALS: BP 126/67; PULSE 68; RESP 19; TEMP 97.9; O2SAT 99
--- NOTE | 2016-11-10 16:19 | CP.PCM.DIS ---
<Donna Ceballos - Last Filed: 11/10/16 15:50> Provider - Provider Date of Admission: 11/01/16 00:18 Attending physician: Joaquín Stanley MD Primary care physician: none Consults: Dr. Holt - cardiology Dr. Crouch - gastroenterology Dr. Allan - surgery Time Spent in preparation of Discharge (in minutes): 60 Hospital Course - Lab Results Lab Results: Micro Results 11/02/16 Unknown Naris MRSA Culture (Admit) - Final MRSA NOT DETECTED 11/01/16 11:30 Urine Urine Culture - Final No Growth (<1,000 CFU/ML) 11/01/16 Unknown Stool Stool Culture - Final NO SALMONELLA, SHIGELLA OR CAMPYLOBACTER ISOLATED. Most Recent Lab Values WBC 8.6 K/uL (4.8-10.8) 11/10/16 07:57 RBC 3.50 Mil/uL (4.40-5.90) L 11/10/16 07:57 Hgb 10.7 g/dL (12.0-18.0) L 11/10/16 07:57 Hct 31.5 % (35.0-51.0) L 11/10/16 07:57 MCV 90.0 fL (80.0-94.0) 11/10/16 07:57 MCH 30.5 pg (27.0-31.0) 11/10/16 07:57 MCHC 33.9 g/dL (33.0-37.0) 11/10/16 07:57 RDW 15.8 % (11.5-14.5) H 11/10/16 07:57 Plt Count 226 K/uL (130-400) 11/10/16 07:57 MPV 9.0 fL (7.2-11.7) 11/10/16 07:57 Neut % (Auto) 70.2 % (50.0-75.0) 11/10/16 07:57 Lymph % (Auto) 12.2 % (20.0-40.0) L 11/10/16 07:57 Sierra % (Auto) 12.3 % (0.0-10.0) H 11/10/16 07:57 Eos % (Auto) 4.6 % (0.0-4.0) H 11/10/16 07:57 Baso % (Auto) 0.7 % (0.0-2.0) 11/10/16 07:57 Neut # 6.0 K/uL (1.8-7.0) 11/10/16 07:57 Lymph # 1.0 K/uL (1.0-4.3) 11/10/16 07:57 Sierra # 1.1 K/uL (0.0-0.8) H 11/10/16 07:57 Eos # 0.4 K/uL (0.0-0.7) 11/10/16 07:57 Baso # 0.1 K/uL (0.0-0.2) 11/10/16 07:57 Neutrophils % (Manual) 73 % (50-75) 11/07/16 06:21 Band Neutrophils % 1 % (0-2) 11/07/16 06:21 Lymphocytes % (Manual) 11 % (20-40) L 11/07/16 06:21 Reactive Lymphs % 1 % (0-0) H 11/07/16 06:21 Monocytes % (Manual) 6 % (0-10) 11/07/16 06:21 Eosinophils % (Manual) 8 % (0-4) H 11/07/16 06:21 Platelet Estimate Normal (NORMAL) 11/07/16 06:21 Large Platelets Present 11/05/16 00:20 Polychromasia Slight 11/07/16 06:21 Poikilocytosis (manual Slight 11/06/16 06:28 Anisocytosis (manual) Slight 11/07/16 06:21 Microcytosis (manual) Slight 11/06/16 06:28 Macrocytosis (manual) Slight 11/06/16 06:28 Tear Drop Cells Slight 11/06/16 06:28 Ovalocytes Slight 11/06/16 06:28 PT 15.4 SECONDS (9.7-12.2) H 11/10/16 07:57 INR 1.4 11/10/16 07:57 APTT 34 SECONDS (21-34) 11/10/16 07:57 Sodium 139 mmol/L (132-148) 11/10/16 07:57 Potassium 3.8 mmol/L (3.6-5.2) 11/10/16 07:57 Chloride 101 mmol/L (98-107) 11/10/16 07:57 Carbon Dioxide 30 mmol/L (22-30) 11/10/16 07:57 Anion Gap 11 (10-20) 11/10/16 07:57 BUN 12 mg/dL (9-20) 11/10/16 07:57 Creatinine 1.0 MG/DL (0.8-1.5) 11/10/16 07:57 Est GFR ( Amer) > 60 11/10/16 07:57 Est GFR (Non-Af Amer) > 60 11/10/16 07:57 Random Glucose 101 mg/dL (75-110) 11/10/16 07:57 Hemoglobin A1c 5.4 % (4.2-6.5) 11/01/16 06:59 Calcium 7.8 mg/dl (8.6-10.4) L 11/10/16 07:57 Phosphorus 3.3 mg/dL (2.5-4.5) 11/10/16 07:57 Magnesium 1.9 mg/dL (1.6-2.3) 11/10/16 07:57 Total Bilirubin 0.8 mg/dL (0.2-1.3) 11/10/16 07:57 AST 26 U/L (17-59) 11/10/16 07:57 ALT 33 U/L (21-72) 11/10/16 07:57 Alkaline Phosphatase 43 U/L (38-126) 11/10/16 07:57 Total Creatine Kinase 155 U/L (55-170) 11/07/16 14:51 CK-MB (Mass) 2.40 ng/mL (0.0-3.38) 11/07/16 14:51 Troponin I 2.7800 ng/mL (0.00-0.120) H* 11/08/16 04:47 Troponin I, Quant 3.4200 ng/mL (0.00-0.120) H* 11/07/16 14:51 Total Protein 5.3 g/dL (6.3-8.3) L 11/10/16 07:57 Albumin 2.5 g/dL (3.5-5.0) L 11/10/16 07:57 Globulin 2.8 gm/dL (2.2-3.9) 11/10/16 07:57 Albumin/Globulin Ratio 0.9 (1.0-2.1) L 11/10/16 07:57 Triglycerides 58 mg/dL (0-149) D 11/08/16 04:47 Cholesterol 69 mg/dL (0-199) 11/08/16 04:47 LDL Cholesterol Direct 30 mg/dL (0-129) 11/08/16 04:47 HDL Cholesterol 27 mg/dL (30-70) L 11/08/16 04:47 Lipase 75 U/L (23-300) 10/31/16 22:17 Carcinoembryonic Ag 1.0 ng/mL (0-3.0) 11/02/16 07:04 Thyroxine (T4) 5.81 ug/dL (5.5-11.0) 11/01/16 06:59 TSH 3rd Generation 1.92 mIU/L (0.46-4.68) 11/01/16 06:59 Urine Color Yellow (YELLOW) 11/01/16 12:22 Urine Clarity Clear (Clear) 11/01/16 12:22 Urine pH 5.0 (5.0-8.0) 11/01/16 12:22 Ur Specific [place] 1.012 (1.003-1.030) 11/01/16 12:22 Urine Protein Negative mg/dL (NEGATIVE) 11/01/16 12:22 Urine Glucose (UA) Normal mg/dL (Normal) 11/01/16 12:22 Urine Ketones Negative mg/dL (NEGATIVE) 11/01/16 12:22 Urine Blood Negative (NEGATIVE) 11/01/16 12:22 Urine Nitrate Negative (NEGATIVE) 11/01/16 12:22 Urine Bilirubin Negative (NEGATIVE) 11/01/16 12:22 Urine Urobilinogen Normal mg/dL (0.2-1.0) 11/01/16 12:22 Ur Leukocyte Esterase 2+ Armida/uL (Negative) H 11/01/16 12:22 Urine WBC (Auto) 16 /hpf (0-5) H 11/01/16 12:22 Urine RBC (Auto) 1 /hpf (0-3) 11/01/16 12:22 Ur Squamous Epith Cells < 1 /hpf (0-5) 11/01/16 00:54 Urine Bacteria Rare (<OCC) 11/01/16 00:54 Stool Occult Blood Positive (NEGATIVE) H 10/31/16 22:17 Stool Leukocytes, Qual Positive (NEGATIVE) H 11/01/16 Unknown C. difficile Ag & Toxin Negative (NEGATIVE) 11/01/16 Unknown Blood Type O POSITIVE 11/05/16 15:51 Antibody Screen Negative 11/05/16 15:51 - Hospital Course Hospital Course: PMD: none PMH: CAD s/p CABG in 1992, hypertension, COPD, venous insufficiency, diverticulosis, fractured vertebrae, multiple facial fractures, Yancey's Palsy Allergies: ciprofloxacin, streptomycin Surgeries: cholecystectomy, metal plate jaw reconstruction Family History: not pertinent Social: smokes 1/2 ppd for 62 years. Denies alcohol and illicit drug use. On admission: Pt is an 86M with medical history of CAD s/p CABG in 1992, hypertension, COPD, venous insufficiency and diverticulosis who presents the emergency department complaining of dizziness and low blood pressure x 2 days. Patient states he became dizzy and lost his balance after walking to the kitchen , which prompted him to take his blood pressure which indicated hypotension. He also experienced a recent fall in August and recalls similar symptoms. Patient notes 4 episodes of diarrhea on 10/30/16 and 2 episodes on 10/30/16. He states he is typically constipated and admits to straining frequently but will experience diarrhea every month. Patient also admits to bright red blood per rectum noted in the toilet, on the toilet paper and toilet seat x 2 days. He states this is the first he experienced rectal bleeding. Patient remarks he was diagnosed with gastritis/diverticulosis 7-8 years ago. 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 He denies chest pain, shortness of breath, abdominal pain, nausea, vomiting but admits to lower extremity edema. During Hospital Stay: FOBT was positive. GI was consulted and did an EGD which showed medium sized hiatus hernia, acute gastritis; pathology negative for H Pylori. Later that day the patient had a large BM with a large amount of BRBPR. Patient was transferred to the ICU. Bleeding scan was done and showed site of bleeding was. in the sigmoid colon. Colonoscopy: Estimated blood loss 20 cc. Post op diagnosis: hemorrhoids and active bleeding diverticulosis. Retained old blood and blood clots. Procedure had to be stopped due to patient actively bleeding. Mesenteric Angiogram showed no evidence of GI bleed in the SMA and ÁNGELA. Selective cath of the ÁNGELA showed no bleed. Surgery was consulted for possible embolization or colectomy. Patient was transfused multiple units of PRBC and blood products. Due to massive fluid resuscitation patent developed venous congestion and developing flash CHF. Troponins elevated likely due to ischemic demand. Patient's troponin did trend down during his stay. His hemoglobin remained low but stable, although patietn recieved a lot of blood products. The blled was likely diverticular in origin, surgery is following and he may need surgical removal of the colon but due to his advance age as well as positive troponins it would be a high risk surgery. Patient improved and was transferred to the floor. The patient did not report any more bloody BMs. Patient is stable for discharge to rehab facility when a bed is available. Patient is to follow up with his primary care doctor within one week of discharge. He is to follow up with Dr. Phan, cardiology, within one week of discharge. He is also to follow up with Dr. Crouch, GI, within a week of discharge for post hospital care of GI bleed. Patient is to take the following medications: Crestor 20mg one by mouth daily at bedtime Ambien 5mg one by mouth daily at bedtime Lopressor 12.5 mg by mouth twice a day Lisinopril 2.5 mg one by mouth daily Robitussin DM as needed for cough Patient is to return to the hospital if he notices any blood in his stool or if symptoms return. All instructions explained to the patient and he agrees. (Please note this is a summary. Please refer to the EMR for full details of hospital stay) Discharge Exam - Head Exam Head Exam: ATRAUMATIC, NORMOCEPHALIC - Eye Exam Eye Exam: EOMI, Normal appearance, PERRL Pupil Exam: NORMAL ACCOMODATION - ENT Exam ENT Exam: Mucous Membranes Moist - Respiratory Exam Respiratory Exam: Clear to PA & Lateral, NORMAL BREATHING PATTERN. absent: Accessory Muscle Use, Chest Wall Tenderness, Respiratory Distress - Cardiovascular Exam Cardiovascular Exam: REGULAR RHYTHM, +S1, +S2 - GI/Abdominal Exam GI & Abdominal Exam: Normal Bowel Sounds, Soft. absent: Distended, Firm, Guarding, Tenderness - Extremities Exam Additional comments: edema 3+, scrotal edema - Back Exam Back exam: NORMAL INSPECTION. absent: CVA tenderness (L), CVA tenderness (R), paraspinal tenderness - Neurological Exam Neurological exam: Alert, CN II-XII Intact, Oriented x3 - Psychiatric Exam Psychiatric exam: Normal Affect, Normal Mood - Skin Skin Exam: Dry, Intact, Normal Color, Warm Discharge Plan - Follow Up Plan Condition: STABLE Disposition: OTHER INSTITUTION Instructions: Myocardial Infarction (DC), Diverticulitis (DC), Rectal Bleeding (DC), Yancey Palsy (DC), Hypotension (DC), Dizziness (GEN) Additional Instructions: Patient is stable for discharge to rehab facility when a bed is available. Patient is to follow up with his primary care doctor within one week of discharge. He is to follow up with Dr. Phan, cardiology, within one week of discharge. He is also to follow up with Dr. Crouch, GI, within a week of discharge for post hospital care of GI bleed. Patient is to take the following medications: Crestor 20mg one by mouth daily at bedtime Ambien 5mg one by mouth daily at bedtime Lopressor 12.5 mg by mouth twice a day Lisinopril 2.5 mg one by mouth daily Robitussin DM as needed for cough Patient is to return to the hospital if he notices any blood in his stool or if symptoms return. All instructions explained to the patient and he agrees. Referrals: Thomas Phan MD [Staff Provider] - Daniella Crouch [Staff Provider] - <Michael Phillips - Last Filed: 11/10/16 17:11> Provider - Provider Date of Admission: 11/01/16 00:18 Attending physician: Joaquín Stanley MD Hospital Course - Lab Results Lab Results: Micro Results 11/02/16 Unknown Naris MRSA Culture (Admit) - Final MRSA NOT DETECTED 11/01/16 11:30 Urine Urine Culture - Final No Growth (<1,000 CFU/ML) 11/01/16 Unknown Stool Stool Culture - Final NO SALMONELLA, SHIGELLA OR CAMPYLOBACTER ISOLATED. Most Recent Lab Values WBC 8.6 K/uL (4.8-10.8) 11/10/16 07:57 RBC 3.50 Mil/uL (4.40-5.90) L 11/10/16 07:57 Hgb 10.7 g/dL (12.0-18.0) L 11/10/16 07:57 Hct 31.5 % (35.0-51.0) L 11/10/16 07:57 MCV 90.0 fL (80.0-94.0) 11/10/16 07:57 MCH 30.5 pg (27.0-31.0) 11/10/16 07:57 MCHC 33.9 g/dL (33.0-37.0) 11/10/16 07:57 RDW 15.8 % (11.5-14.5) H 11/10/16 07:57 Plt Count 226 K/uL (130-400) 11/10/16 07:57 MPV 9.0 fL (7.2-11.7) 11/10/16 07:57 Neut % (Auto) 70.2 % (50.0-75.0) 11/10/16 07:57 Lymph % (Auto) 12.2 % (20.0-40.0) L 11/10/16 07:57 Sierra % (Auto) 12.3 % (0.0-10.0) H 11/10/16 07:57 Eos % (Auto) 4.6 % (0.0-4.0) H 11/10/16 07:57 Baso % (Auto) 0.7 % (0.0-2.0) 11/10/16 07:57 Neut # 6.0 K/uL (1.8-7.0) 11/10/16 07:57 Lymph # 1.0 K/uL (1.0-4.3) 11/10/16 07:57 Sierra # 1.1 K/uL (0.0-0.8) H 11/10/16 07:57 Eos # 0.4 K/uL (0.0-0.7) 11/10/16 07:57 Baso # 0.1 K/uL (0.0-0.2) 11/10/16 07:57 Neutrophils % (Manual) 73 % (50-75) 11/07/16 06:21 Band Neutrophils % 1 % (0-2) 11/07/16 06:21 Lymphocytes % (Manual) 11 % (20-40) L 11/07/16 06:21 Reactive Lymphs % 1 % (0-0) H 11/07/16 06:21 Monocytes % (Manual) 6 % (0-10) 11/07/16 06:21 Eosinophils % (Manual) 8 % (0-4) H 11/07/16 06:21 Platelet Estimate Normal (NORMAL) 11/07/16 06:21 Large Platelets Present 11/05/16 00:20 Polychromasia Slight 11/07/16 06:21 Poikilocytosis (manual Slight 11/06/16 06:28 Anisocytosis (manual) Slight 11/07/16 06:21 Microcytosis (manual) Slight 11/06/16 06:28 Macrocytosis (manual) Slight 11/06/16 06:28 Tear Drop Cells Slight 11/06/16 06:28 Ovalocytes Slight 11/06/16 06:28 PT 15.4 SECONDS (9.7-12.2) H 11/10/16 07:57 INR 1.4 11/10/16 07:57 APTT 34 SECONDS (21-34) 11/10/16 07:57 Sodium 139 mmol/L (132-148) 11/10/16 07:57 Potassium 3.8 mmol/L (3.6-5.2) 11/10/16 07:57 Chloride 101 mmol/L (98-107) 11/10/16 07:57 Carbon Dioxide 30 mmol/L (22-30) 11/10/16 07:57 Anion Gap 11 (10-20) 11/10/16 07:57 BUN 12 mg/dL (9-20) 11/10/16 07:57 Creatinine 1.0 MG/DL (0.8-1.5) 11/10/16 07:57 Est GFR ( Amer) > 60 11/10/16 07:57 Est GFR (Non-Af Amer) > 60 11/10/16 07:57 Random Glucose 101 mg/dL (75-110) 11/10/16 07:57 Hemoglobin A1c 5.4 % (4.2-6.5) 11/01/16 06:59 Calcium 7.8 mg/dl (8.6-10.4) L 11/10/16 07:57 Phosphorus 3.3 mg/dL (2.5-4.5) 11/10/16 07:57 Magnesium 1.9 mg/dL (1.6-2.3) 11/10/16 07:57 Total Bilirubin 0.8 mg/dL (0.2-1.3) 11/10/16 07:57 AST 26 U/L (17-59) 11/10/16 07:57 ALT 33 U/L (21-72) 11/10/16 07:57 Alkaline Phosphatase 43 U/L (38-126) 11/10/16 07:57 Total Creatine Kinase 155 U/L (55-170) 11/07/16 14:51 CK-MB (Mass) 2.40 ng/mL (0.0-3.38) 11/07/16 14:51 Troponin I 2.7800 ng/mL (0.00-0.120) H* 11/08/16 04:47 Troponin I, Quant 3.4200 ng/mL (0.00-0.120) H* 11/07/16 14:51 Total Protein 5.3 g/dL (6.3-8.3) L 11/10/16 07:57 Albumin 2.5 g/dL (3.5-5.0) L 11/10/16 07:57 Globulin 2.8 gm/dL (2.2-3.9) 11/10/16 07:57 Albumin/Globulin Ratio 0.9 (1.0-2.1) L 11/10/16 07:57 Triglycerides 58 mg/dL (0-149) D 11/08/16 04:47 Cholesterol 69 mg/dL (0-199) 11/08/16 04:47 LDL Cholesterol Direct 30 mg/dL (0-129) 11/08/16 04:47 HDL Cholesterol 27 mg/dL (30-70) L 11/08/16 04:47 Lipase 75 U/L (23-300) 10/31/16 22:17 Carcinoembryonic Ag 1.0 ng/mL (0-3.0) 11/02/16 07:04 Thyroxine (T4) 5.81 ug/dL (5.5-11.0) 11/01/16 06:59 TSH 3rd Generation 1.92 mIU/L (0.46-4.68) 11/01/16 06:59 Urine Color Yellow (YELLOW) 11/01/16 12:22 Urine Clarity Clear (Clear) 11/01/16 12:22 Urine pH 5.0 (5.0-8.0) 11/01/16 12:22 Ur Specific [place] 1.012 (1.003-1.030) 11/01/16 12:22 Urine Protein Negative mg/dL (NEGATIVE) 11/01/16 12:22 Urine Glucose (UA) Normal mg/dL (Normal) 11/01/16 12:22 Urine Ketones Negative mg/dL (NEGATIVE) 11/01/16 12:22 Urine Blood Negative (NEGATIVE) 11/01/16 12:22 Urine Nitrate Negative (NEGATIVE) 11/01/16 12:22 Urine Bilirubin Negative (NEGATIVE) 11/01/16 12:22 Urine Urobilinogen Normal mg/dL (0.2-1.0) 11/01/16 12:22 Ur Leukocyte Esterase 2+ Armida/uL (Negative) H 11/01/16 12:22 Urine WBC (Auto) 16 /hpf (0-5) H 11/01/16 12:22 Urine RBC (Auto) 1 /hpf (0-3) 11/01/16 12:22 Ur Squamous Epith Cells < 1 /hpf (0-5) 11/01/16 00:54 Urine Bacteria Rare (<OCC) 11/01/16 00:54 Stool Occult Blood Positive (NEGATIVE) H 10/31/16 22:17 Stool Leukocytes, Qual Positive (NEGATIVE) H 11/01/16 Unknown C. difficile Ag & Toxin Negative (NEGATIVE) 11/01/16 Unknown Blood Type O POSITIVE 11/05/16 15:51 Antibody Screen Negative 11/05/16 15:51 Attending/Attestation - Attestation I have personally seen and examined this patient.: Yes I have fully participated in the care of the patient.: Yes I have reviewed all pertinent clinical information, including history, physical exam and plan: Yes Notes (Text): Medical attending: Patient was seen and examined by me, agree with the above note by medical coordinator pesticide use. Patient's Hgb has remained stable at this time. He has had normal BMs and is tolerating the diet that he is on at this time. He reports he finally slept ok after getting out of ICU last night. We explained to the patient that the next step to get the patient to [facility] for rehab as he does appear to be decommissioned from prolonged hospitalization. Also the patient reported some swelling around the scrotum as well as the lower extremities. Likely this is related from the PRBCs that the patient has needed - He has had alomst 11 units of PRBCs. His BP is ok, will give lasix IV x1. thank you Michael Phillips
== END 2016-11-10 17:05 | DRG 378 ==
LOC: C.ER 21:14 → C.6T 11-01 00:18 → C.9I 11-02 15:39 → C.5T 11-09 22:35
PROVIDERS: ADMIT Family Medicine; ATTEND Family Medicine
PROC: 0DB68ZX Excision of Stomach, Via Natural or Artificial Opening Endoscopic, Diagnostic (ICD-10-PCS; principal; 2016-11-02 14:15)
PROC: 0DJD8ZZ Inspection of Lower Intestinal Tract, Via Natural or Artificial Opening Endoscopic (ICD-10-PCS; 2016-11-03)
PROC: 30233K1 Transfusion of Nonautologous Frozen Plasma into Peripheral Vein, Percutaneous Approach (ICD-10-PCS; 2016-11-03)
DX: K57.31 Diverticulosis of large intestine without perforation or abscess with bleeding (principal); D62 Acute posthemorrhagic anemia; I95.9 Hypotension, unspecified; J44.9 Chronic obstructive pulmonary disease, unspecified; K31.84 Gastroparesis; Z95.1 Presence of aortocoronary bypass graft; R42 Dizziness and giddiness; K44.9 Diaphragmatic hernia without obstruction or gangrene; K29.00 Acute gastritis without bleeding; K64.8 Other hemorrhoids; I25.10 Atherosclerotic heart disease of native coronary artery without angina pectoris; I87.2 Venous insufficiency (chronic) (peripheral); I10 Essential (primary) hypertension; F17.210 Nicotine dependence, cigarettes, uncomplicated; I44.0 Atrioventricular block, first degree; M19.90 Unspecified osteoarthritis, unspecified site; M47.9 Spondylosis, unspecified; Z90.49 Acquired absence of other specified parts of digestive tract; Z86.73 Personal history of transient ischemic attack (TIA), and cerebral infarction without residual deficits; Z87.81 Personal history of (healed) traumatic fracture; Z88.0 Allergy status to penicillin